=== PATIENT | male | born 1955 | race African-American/Black ===

== ENCOUNTER 2016-12-31 11:24 | Outpatient (CLI) | payer OTHER ==
--- NOTE | 2016-12-31 13:27 | CT ---
CT PULMONARY LUNG SCAN: Date: 12/31/16 HISTORY: Low dose screening. Family history of cancer. Patient is a current smoker. Patient has had coronary artery bypass surgery. FINDINGS: An 8 mm right paratracheal lymph node is seen. No lung nodules or masses are identified. There is mi ld ground-glass density in the inferior anterior aspect of the right upper lobe. No pleural or peric ardial effusions are identified. A left-sided 2.4 cm renal cyst is seen. IMPRESSION: Lung-RADS category 1 - negative. Continue annual screening with LDCT in 12 months. POS: [facility]
== END 2016-12-31 11:25 | disposition home or self-care (01) ==
LOC: CT 11:24
PROVIDERS: ATTEND Family Medicine
DX: Z12.2 Encounter for screening for malignant neoplasm of respiratory organs (principal); F17.210 Nicotine dependence, cigarettes, uncomplicated; J41.0 Simple chronic bronchitis
CPT/HCPCS: G0297

== ENCOUNTER 2017-06-06 20:09 | Emergency (ER) | payer OTHER ==
[2017-06-06] MEDS ORDERED: Adacel (T-DAP) 0.5 ML VIAL ONE (20:28)
--- NOTE | 2017-06-06 20:48 | RAD ---
RIGHT HAND THREE VIEWS 06/06/17 HISTORY: Dog bite. FINDINGS: Osteoarthritic changes are present throughout the wrist and hand. Old healed fracture of the fifth me tacarpal is apparent. Metallic BB lies just posterolateral to the base of the proximal phalanx little finger. No acute fracture, dislocation, or soft tissue gas are apparent. IMPRESSION: Chronic type findings are as detailed above. Metallic BB adjacent to the little finger base is presum ed chronic. No acute osseous abnormalities are reliably demonstrated. POS: [facility]
[2017-06-06] MEDS ORDERED: Bacitracin Zinc 1 Packet ONE (21:48)
== END 2017-06-06 22:02 | disposition home or self-care (01) ==
LOC: ERS 20:09
DX: S61.451A Open bite of right hand, initial encounter (principal); K21.9 Gastro-esophageal reflux disease without esophagitis; I25.10 Atherosclerotic heart disease of native coronary artery without angina pectoris; I10 Essential (primary) hypertension; F17.220 Nicotine dependence, chewing tobacco, uncomplicated; Z79.82 Long term (current) use of aspirin; W54.0XXA Bitten by dog, initial encounter
CPT/HCPCS: 90471; 90715

== ENCOUNTER 2017-06-15 01:40 | Inpatient (IN) | payer OTHER ==
[2017-06-15 03:02] LABS: #Basophils 0.1 thou/uL (0.0-0.2); #Eosinphils 0.1 thou/uL (0.0-0.7); #Lymphocytes 3.1 thou/uL (1.20-3.40); #Monocytes 0.8 thou/uL (0.11-0.59); #Neutrophils 4.5 thou/uL (1.40-6.50); %Basophils 1.5 % (0.0-1.0); %Eosinophils 0.6 % (0.0-10.0); %Lymphocytes 35.9 % (21.0-51.0); %Monocytes 9.6 % (0.0-10.0); %Neutrophils 52.4 % (42.0-75.0); Hemoglobin 14.7 g/dL (14.0-18.0); Mean Corpuscular HGB CONC 33.6 g/dL (32.0-36.0); Mean Corpuscular Hemoglobin 33.8 pg (27.0-31.0); Mean Platelet Volume 6.8 fL (7.4-10.4); Platelet Count 222 thou/uL (130-400); RBC Distribution Width 11.8 % (11.5-14.5); Red Blood Cell (RBC) Count 4.35 mill/uL (4.70-6.10); White Blood Cell (WBC) Count 8.7 thou/uL (4.8-10.8)
[2017-06-15 03:08] LABS: Prothrombin Time 13.7 SEC (12.0-14.7)
[2017-06-15 03:09] LABS: PTT 33.9 SEC (22.9-36.1)
[2017-06-15] MEDS ORDERED: Lidocaine 1% w/Epinephrine 1:100K 20 ML VIAL ONE (03:21)
[2017-06-15 03:28] LABS: ALT (SGPT) 31 U/L (8-55); AST (SGOT) 35 U/L (5-34); Albumin 4.4 g/dL (3.5-5.0); Alcohol 319 mg/dL (Less than 10); Alkaline Phosphatase 69 U/L (40-150); Anion Gap 12 mmol/L (10-20); BUN (Urea Nitrogen) 5 mg/dL (8.4-25.7); Bilirubin, Total 0.3 mg/dL (0.2-1.2); Calc. Creatinine Clearance 0 mL/min (70-130); Calcium 9.5 mg/dL (7.8-10.44); Carbon Dioxide 28 mmol/L (22-29); Chloride 108 mmol/L (98-107); Estimated GFR-MDRD Greater than 90; Globulin 3.3 g/dL (2.4-3.5); Glucose 97 mg/dL (70-105); Potassium 3.8 mmol/L (3.5-5.1); Protein, Total 7.7 g/dL (6.0-8.3); Sodium 144 mmol/L (136-145)
[2017-06-15 03:32] LABS: CKMB 5.6 ng/mL (0-6.6); Troponin I Less than 0.010 ng/mL (< 0.028)
[2017-06-15] MEDS ORDERED: Adacel (T-DAP) 0.5 ML VIAL ONE (03:32)
[2017-06-15 04:24] LABS: Magnesium 2.4 mg/dL (1.6-2.6); Phosphorus 3.5 mg/dL (2.3-4.7)
[2017-06-15] MEDS ORDERED: Multivitamins, Adult 10 ML, Thiamine HCl 100 MG, Folic Acid 1 MG in Dextrose 5 %-0.45 %... IV SCH (04:30)
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
[2017-06-15 06:15] LABS: Troponin I Less than 0.010 ng/mL (< 0.028)
[2017-06-15] MEDS ORDERED: Ondansetron ODT 4 MG TAB SL PRN (06:31)
[2017-06-15] MEDS ORDERED: Acetaminophen 325 MG TAB PO PRN (06:31)
[2017-06-15] MEDS ORDERED: Ondansetron HCl/PF 4 MG/2 ML Vial IVP PRN (06:31)
[2017-06-15 07:31] VITALS: BMI 20.5
--- NOTE | 2017-06-15 09:18 | RAD ---
PORTABLE CHEST: Date: 06/15/17 PROVIDED CLINICAL HISTORY: Fall. FINDINGS: Comparison made with study dated 07/27/16. Cardiac and mediastinal silhouette is within normal limits. Lungs appear clear. There is no pleural f luid or pneumothorax apparent. Median sternotomy changes are again seen. IMPRESSION: No evidence for an acute cardiopulmonary process. POS: [facility]
[2017-06-15] MEDS ORDERED: Guaifenesin DM 100-10/5 ML UDCUP PO PRN (10:01)
[2017-06-15] MEDS ORDERED: Senokot 8.6 MG TAB PO PRN (10:01)
--- NOTE | 2017-06-15 10:53 | PRG ---
DATE OF SERVICE: 06/15/2017 I personally interviewed and examined the patient, reviewed records and imaging and agree with docume ntation of Arash Canas PA-C, dated 06/15/2017. Briefly, Wallace Mera is a 62-year-old gentleman, who had a fall at a family home yesterday even ing. He was drinking alcohol at that time and he does not remember the event. In the emergency depa rtment, he complained of some burning in his hands and feet and reported feeling off balance. CT jayde ging showed degenerative changes in the cervical spine causing spinal stenosis in a chronic fashion. When I am seeing Mr. Mera this morning, he is more alert. He tells me his hands and arms have been burning for one year. He tells me his hands and arms not feel any different than they did two w eeks ago. He tells me his balance is off and it has been off for at least a year and that his balanc e is no different than it was one year ago. Although, there are some upper motor neuron findings in reflexes and strength, this is a chronic appe aring problem. An MRI scan is pending for today. Mr. Mera is in difficult situation. If this episode of alcohol intoxication is reflective of h is normal home life then he could have a significant alcohol induced peripheral neuropathy and B12 le adelia to be evaluated. This will make him off balance and should decrease his reflex responses. In ad dition to this, he has chronic cervical spondylosis causing chronic cervical spinal stenosis. Spinal cord pressure will make him feel off balance as well. It could be unwise to put him through a large cervical spine operation if he does not have the motivation to complete physical therapy and perhaps inpatient rehabilitation after that surgery. In addition, if he has fallen because of a peripheral neuropathy, dislodging plate screws and interbody devices would be problematic and perhaps more so th an if surgery was not done. I explained all this to Mr. Mera. He told me he could follow up in clinic. I think that is a good bar to set. If he is able to return home stay off alcohol and enough to return to clinic, I thi nk he might be a good candidate for decompression. If on the other hand his compliance is poor and t he benefits of surgery may not be realize. Once MR imaging is available, I can make arrangements for followup in the office and revisit with him in the hospital if it is needed.
--- NOTE | 2017-06-15 11:18 | CT ---
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 More prominent centrally bulging/protruding disc at C5-6, possibly representing focal central discont inue herniation. There appears to be some impingement on the anterior aspect of the spinal cord/spina l stenosis at this level. Initial Report created on 06/15/2017 3:00 AM Central Time ([place] & [place]) EXAM: CT Cervical Spine Without Intravenous Contrast CLINICAL HISTORY: 62 years old, male; Injury or trauma; Fall; Initial encounter; Abrasion; Patient HX: Er 2; M62 presen ts to ed via ems S/P fall with chin laceration. Patient reports blacking out for, "quite a while" thi s evening. He reports arm, finger, head, neck, and chin pain. Patient reports alcohol consumption. H e denies nausea and vomiting TECHNIQUE: Axial computed tomography images of the cervical spine without intravenous contrast. Coronal and sagittal reformatted images were created and reviewed. COMPARISON: No relevant prior studies available. FINDINGS: On axial CT images, no definite acute fracture is visible. Sagittal and coronal reconstructions show no fracture or subluxation. Mild to moderate degenerative disc changes and facet joint arthritis at multiple levels. Mild bulging discs suspected at several levels. More prominent centrally bulging/protruding disc at C5-6, possibly representing focal central discont inue herniation. There could be some on the anterior aspect of the spinal cord/spinal stenosis at thi s level. MRI could be more sensitive if clinically indicated. IMPRESSION: No definite acute fracture or subluxation by CT. Other findings discussed above. Thank you for allowing us to participate in the care of your patient. Dictated and Authenticated by: Vijay Live MD 06/15/2017 3:00 AM Central Time ([place] & [place]) FINAL REPORT EMERGENCY AFTER HOURS CT CERVICAL SPINE: Date: 06/15/17 IMPRESSION: I agree with the preliminary interpretation given by vRpelon. No evidence for fracture or traumatic subl uxation. Multilevel degenerative changes are noted with areas of potentially significant central reddy l stenosis. Consider nonemergent MRI. POS: [facility]
--- NOTE | 2017-06-15 11:19 | CT ---
PRELIMINARY REPORT/[facility]/EMERGENCY AFTER HOURS PROCEDURE: EXAM: CT Head Without Intravenous Contrast CLINICAL HISTORY: 62 years old, male; Injury or trauma; Fall; Initial encounter; Laceration; Without residual foreign b buzz; Jaw or chin; Patient HX: Er 2; M62 presents to ed via ems S/P fall with chin laceration. Patient reports blacking out for, "quite a while" this evening. He reports arm, finger, head, neck, and chin pain. Patient reports alcohol consumption. He denies nausea and vomiting TECHNIQUE: Axial computed tomography images of the head/brain without intravenous contrast. COMPARISON: No relevant prior studies available. FINDINGS: No definite acute skull fracture. Included paranasal sinuses are essentially clear. No acute intracranial hemorrhage or mass effect. Ventricle size is normal for age. There is decreased attenuation in the periventricular white matter, likely from microvascular disease . Small old lacunar infarcts in the right supraventricular white matter. Additional old infarct in the high left frontal/parietal region. No definite acute infarct by CT. IMPRESSION: No acute intracranial bleed or mass effect. Changes of microvascular disease, and old infarcts, details above. Thank you for allowing us to participate in the care of your patient. Dictated and Authenticated by: Vijay Live MD 06/15/2017 2:56 AM Central Time ([place] & [place]) FINAL REPORT EMERGENCY AFTER HOURS CT BRAIN: Date: 06/15/17 IMPRESSION: I agree with the preliminary interpretation given by Roselia. No evidence for intracranial hemorrhage or mass effect. Chronic ischemic changes are noted, which appear similar to the 07/01/08 study. POS: [facility]
[2017-06-15] MEDS: Nicotine 14 MG PATCH TD SCH (11:41)
--- NOTE | 2017-06-15 12:54 | MRI ---
MRI CERVICAL SPINE: Date: 06/15/17 PROVIDED CLINICAL HISTORY: Cervical myelopathy. FINDINGS: Comparison made with CT dated 06/15/17. Cervical alignment appears normal. Vertebral body heights appear preserved. No focal concerning regio nal marrow signal abnormality. The visualized posterior fossa and cervicomedullary junction demonstra te normal signal and morphology. Evaluation is limited due to patient motion on the axial sequences. At C2-3, there is no significant central canal or neural foraminal narrowing apparent. At C3-4, there is a broad based disc bulge and bilateral uncinate process hypertrophy. There is effac ement of the ventral subarachnoid space without cord contact or deformity. There is a small focus of abnormal signal intensity present in the right central cord at the level of C4. There is bilateral fo raminal narrowing. At c4-5, there is a broad based disc osteophyte complex and bilateral uncinate process hypertrophy. T here is effacement of the ventral subarachnoid space with flattening of the ventral cord. There is bi lateral foraminal narrowing, severe left of midline. At C5-6, there is a broad based disc bulge with a superimposed central disc protrusion. This produces flattening of the spinal cord. There is signal alteration on fluid sensitive sequences within the sp inal cord at this level, seen to best advantage on the sagittal sequences. Uncinate process hypertrop hy is also present with associated severe bilateral foraminal narrowing. At C6-7, there is a broad based disc bulge without significant central canal or foraminal narrowing a pparent. At C7-T1, there is a broad based disc bulge without significant central canal or foraminal narrowing apparent. IMPRESSION: Cervical degenerative changes with areas of canal and foraminal narrowing as described above. Areas o f cord signal abnormality at C4 and C5-6 may reflect myelomalacia. Given history of recent trauma, co rd edema/injury should also be considered. POS: [facility]
[2017-06-15] MEDS ORDERED: traMADol HCl 50 MG TAB PO PRN (13:58)
[2017-06-15] MEDS: Acetaminophen 325 MG TAB PO PRN (14:17)
[2017-06-15] MEDS ORDERED: Oxazepam 10 MG CAP PO SCH (15:00)
[2017-06-15 15:19] LABS: Medtox Reader # READER 4
[2017-06-15 15:20] LABS: Amphetamine Not Detected (NotDetected); Barbiturates Screen Not Detected (NotDetected); Benzodiazepine Screen Not Detected (NotDetected); Cocaine Metabolite Screen Not Detected (NotDetected); Medtox Control Line Valid? VALID (VALID); Methadone Not Detected (NotDetected); Methamphetamine Not Detected (NotDetected); Opiate Screen Not Detected (NotDetected); Oxycodone Screen Not Detected (NotDetected); Phencyclidine (PCP) Not Detected (NotDetected); THC/Cannabinoid Screen Detected (NotDetected); Tricyclic Screen Not Detected (NotDetected)
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
[2017-06-15] MEDS: Mometasone/Formoterol 120 PUFF INHALER INH SCH (19:28)
[2017-06-15] MEDS: Famotidine 20 MG TAB PO SCH (20:42)
[2017-06-15] MEDS: Docusate 100 MG CAP PO SCH (20:42)
--- NOTE | 2017-06-15 20:51 | HP ---
DATE OF ADMISSION: 06/15/2017 ADMITTING PHYSICIAN: Jeremy kaur/Dr. Main. REASON FOR ADMISSION: Fall with subsequent numbness and tingling to hands. HOSPITAL DIAGNOSES: 1. Status post ground level fall. 2. Laceration to chin. 3. Cervical spinal stenosis. PAST MEDICAL HISTORY: 1. Coronary artery disease. 2. Hypertension. 3. Chronic alcoholism. 4. Chronic obstructive pulmonary disease. PAST SURGICAL HISTORY: CABG 5-vessel in 2016. PAST SOCIAL HISTORY: Alcohol approximately 24 beers per day. Smoking 2 packs per day. Drugs: Current marijuana use, past cocaine use. CURRENT MEDICATIONS: The patient denies taking medications. ALLERGIES: No known drug allergies. LABORATORY DATA: Hematology: WBC 8.7, RBC 4.35, hemoglobin 14.0, hematocrit 43.7, platelets 222. Coags: PT 13.7, INR 1.0. Chemistry: Sodium 144, potassium 3.8, chloride 108, carbon dioxide 28, BUN 5, creatinine 0.89. Troponin less than 0.10. DIAGNOSTIC IMAGING: Cervical spine CT scan, cervical spine bulging protruding disk. HISTORY OF PRESENT ILLNESS: Mr. Mera is a 62-year-old male who was in his normal state of health last night. He apparently was out, drinking with family and friends. He chronically uses alcohol. He reports that if he is not intoxicated then he feels off balance and has had multiple falls lately. He apparently had a ground level fall, sustaining a laceration to his chin. Subsequently, he had numbness and tingling to his upper extremities. He was [facility] to [facility] via EMS. He is unable to recall the details of the event. Workup in the ER was concerning for central cord syndrome. He underwent CT scan and MRI. He was admitted to the hospital by Jeremy Kaur. Dr. Fernandez, Neurosurgery was consulted. The following morning, he was evaluated by Trauma Services. Laceration to the chin had been closed with sutures by the ER physician. REVIEW OF SYSTEMS: Constitutional: Denies weight loss or gain. Denies fever or chills. Denies general malaise. HEENT: Reports blindness in right eye from injury. No other complaints. Cardiovascular: History of 5-vessel bypass. Denies chest pain. Respiratory: Denies cough, wheezing or shortness of breath. GI: Denies abdominal pain, nausea, vomiting, diarrhea. : No complaints. Musculoskeletal: Reports pain to the area of laceration on chin. Reports posterior neck pain. Skin: Negative. No complaints. Neurologic: Denies dizziness, denies weakness. He reports having blacking out spells when consuming alcohol. He reports multiple falls if he is not consuming alcohol. PHYSICAL EXAMINATION: GENERAL: Elderly appearing male, appearing older than stated age, nontoxic, appears pain free. HEENT: A small superficial chin laceration closed with sutures. Pain to posterior neck. Cervical collar in place. RESPIRATORY: Bilateral breath sounds clear. No respiratory distress. CARDIOVASCULAR: Regular rate and rhythm. Heart sounds normal. ABDOMEN: Soft, nontender, nondistended. BACK: No tenderness. No abnormalities noted. EXTREMITIES: Neurovascularly intact. Moves all extremities, complains of burning sensation when touching feet. NEUROLOGIC: GCS is 15. Alert and oriented x3. ASSESSMENT: 1. Status post ground level fall. 2. Small superficial laceration to chin. 3. Chronic alcoholism. 4. Cervical spine stenosis. 5. Noncompliance with medication and lifestyle recommendation. 6. History of bipolar disorder. PLAN: 1. Neurosurgical consult, Dr. Fernandez. I appreciate recommendations. 2. Monitor for alcohol withdrawal, prophylaxis initiated. 3. Local wound care to chin. 4. Continue cervical collar. 5. PT, OT evaluation. 6. Appreciate Hospital Medicine. The patient was reviewed with Dr. Main, attending trauma surgeon, who agrees with plan of care. TYRON
[2017-06-15] MEDS ORDERED: Non-Formulary Item 1 EACH (Budesonide-Formoterol [Symbicort 80-4.5] 1 PUFF) INH SCH (21:00)
--- NOTE | 2017-06-16 00:04 | HP ---
DATE OF CONSULT: 06/15/2017 Wallace Mera is a 62-year-old black male who took a fall and has experiences paresthesias in his fingers and toes. He denies any weakness. A CAT scan has been obtained. Cervical spine revealing absence of any acute fracture or subluxation. He does have significant cervical stenosis. He has pearson d a cervical collar in place. Neurosurgery has seen him. Cervical spine MRI scan obtained this morn ing reveals C3-C4 broad based disk bulge, bilateral uncinate process hypertrophy. C4-C5 broad based disk osteophyte complex and bilateral uncinate process hypertrophy, flattening of the ventral cord se adeline left of midline. C5-C6 broad based disk bulge and central disk protrusion. C6-C7, same, but wi thout central canal or foraminal narrowing. C7-T1 broad disk bulge without cord narrowing. Impressi on was severe degenerative changes with areas of canal or foraminal narrowing, central cord stenosis. There was some edema questioning cord injury. The patient has been seen by Dr. 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 Fernandez's recommenda tions were pending MRI scan. Today, Mr. Mera is ambulatory and although has paresthesias, does not experience weakness. At this point, Trauma Services will follow along, but there are no other n on-neurosurgical issues at hand.
[2017-06-16 05:55] LABS: ALT (SGPT) 24 U/L (8-55); AST (SGOT) 24 U/L (5-34); Albumin 3.7 g/dL (3.5-5.0); Alkaline Phosphatase 65 U/L (40-150); Anion Gap 10 mmol/L (10-20); BUN (Urea Nitrogen) 8 mg/dL (8.4-25.7); Bilirubin, Total 0.6 mg/dL (0.2-1.2); Calc. Creatinine Clearance 92 mL/min (70-130); Calcium 9.1 mg/dL (7.8-10.44); Carbon Dioxide 26 mmol/L (22-29); Chloride 105 mmol/L (98-107); Estimated GFR-MDRD Greater than 90; Globulin 2.9 g/dL (2.4-3.5); Glucose 85 mg/dL (70-105); Potassium 3.4 mmol/L (3.5-5.1); Protein, Total 6.6 g/dL (6.0-8.3); Sodium 138 mmol/L (136-145)
[2017-06-16 06:15] LABS: Lymphocytes 46 % (21-51); MDiff Complete? YES; Macrocytosis SLIGHT = 6-15 cells (100X) (0-5/hpf); Mean Corpuscular HGB CONC 33.1 g/dL (32.0-36.0); Mean Corpuscular Hemoglobin 33.1 pg (27.0-31.0); Mean Platelet Volume 6.7 fL (7.4-10.4); Monocytes 15 % (0-10); Neutrophil 35 % (42-75); Nucleated RBC 1 % (0); PLT Morphology Comment Appears Adequate; Platelet Count 222 thou/uL (130-400); RBC Distribution Width 11.9 % (11.5-14.5); Reactive Lymphocytes 4 % (0-10); Red Blood Cell (RBC) Count 4.22 mill/uL (4.70-6.10)
[2017-06-16] MEDS: Mometasone/Formoterol 120 PUFF INHALER INH SCH ×2 (07:30→19:48)
--- NOTE | 2017-06-16 07:31 | PRG ---
DATE OF SERVICE: 06/16/2017 Mr. Mera is a 62-year-old male I saw in his room this morning. He had an MRI yesterday that sh owed a C5-C6 disk protrusion, is likely causing cervical myelopathy. There is also an area of narrow ing at C4-C5. There is questionable myelomalacia as well on the T2 sagittal images. Overnight, ther e have been no acute events. Chemistry exam this morning shows potassium of 3.1, BUN of 8. Tox scre en from yesterday shows cannabinoids. From a neurosurgical standpoint, we recommend ceasing to smoke and drink excessive amounts of alcohol. He can follow up in our office and we can discuss treatment for the cervical spinal stenosis. If any further questions at this time, please feel free to contac t Neurosurgery.
[2017-06-16] MEDS ORDERED: Multivitamins, Adult 10 ML, Folic Acid 1 MG, Thiamine HCl 100 MG in Dextrose 5 %-0.45 %... IV SCH (09:00)
--- NOTE | 2017-06-16 10:34 | PRG ---
DATE OF SERVICE: 06/16/2017 NEUROSURGERY PROGRESS NOTE SUBJECTIVE: I saw Mr. Mera in his hospital room this morning. He had MRI scan of cervical spi ne yesterday. Mr. Mera has more insight into his medical issues this morning than he did yeste rd. He wonders if his neck is causing him to follow. Overnight, his vitals have been stable. I do not see any fever recorded. He is satting 93% on room air. His collar is in place. On neurological examination, Mr. Mera still has fairly good strength in the interossei on both hands, finger extensors might have mild weakness, but it is not profound. There is some mild clonus at the ankles. I reviewed MR imaging of the cervical spine and there is disk disease causing spinal stenosis, some c ord compression and some T2 signal change in the cord. The disks that are out of place are C3-4, C4- 5, and C5-6. These are disks and osteophytes that have narrowed the canal and caused some pressure i n the spinal cord. When he fell and hit his chin, he likely caused some transient injury to the cord . He has a number of other issues that could result in imbalance, including his diabetic and/or alco holic peripheral neuropathy. I am planning surgical intervention for Mr. Mera, but I would like him to be medically ready fo r it. During this hospitalization if we can assess his cardiopulmonary risk factors for general anes thesia, it would be helpful. I would like to treat him with Medrol Dosepak for the next 10 days in a collar to let any swelling in and around the cord taper off before putting him through with surgical intervention. I would like to see him in the office towards the end of 10 day taper and discuss a 3 -level ACDF. Between now and then, I asked him to refrain from alcohol use. He uses walker and to t lizzeth an antacid while he is on steroids. He understands those recommendations. He promises to keep h is followup appointment.
[2017-06-16] MEDS: Famotidine 20 MG TAB PO SCH ×2 (10:38→21:17)
[2017-06-16] MEDS: Atorvastatin Calcium 10 MG TAB PO SCH (10:38)
[2017-06-16] MEDS: Docusate 100 MG CAP PO SCH ×2 (10:38→21:16)
[2017-06-16] MEDS: Nicotine 14 MG PATCH TD SCH (10:39)
--- NOTE | 2017-06-16 12:25 | PDOC.PN ---
- Subjective Encounter Start Date: 06/16/17 Encounter Start Time: 09:40 Subjective: feels better, no trouble breathing -: is moving all extremities - Objective Resuscitation Status: Resuscitation Status FULL:Full Resuscitation MAR Reviewed: Yes Vital Signs & Weight: Vital Signs (12 hours) Temp Pulse Resp BP BP Pulse Ox 06/16/17 07:20 98.3 F 78 18 127/79 93 L 06/16/17 07:15 98.3 F 78 18 93 L 06/16/17 06:53 73 14 96 06/16/17 04:35 93 L 06/16/17 04:00 98.3 F 60 16 119/72 119/72 93 L 06/16/17 00:15 78 14 97 Weight Admit Weight 156 lb Weight 157 lb 3.2 oz I&O: 06/15/17 06/16/17 06/17/17 05:59 06:59 06:59 Intake Total Output Total Balance Result Diagrams: 06/16/17 04:48 06/16/17 04:48 Phys Exam - Physical Examination HEENT: PERRLA, moist MMs Neck: no JVD, supple Respiratory: no wheezing, no rales Cardiovascular: RRR, no significant murmur Gastrointestinal: soft, non-tender, positive bowel sounds Musculoskeletal: no edema, pulses present Neurological: non-focal, moves all 4 limbs Psychiatric: A&O x 3 Dx/Plan (1) COPD (chronic obstructive pulmonary disease) Status: Chronic Qualifiers: COPD type: chronic bronchitis Chronic bronchitis type: unspecified Qualified Code(s): J42 - Unspecified chronic bronchitis (2) Cervical disc disease with myelopathy Code(s): M50.00 - CERVICAL DISC DISORDER WITH MYELOPATHY, UNSP CERVICAL REGION Status: Acute (3) Alcohol intoxication Status: Resolved (4) CAD (coronary artery disease) Code(s): I25.10 - ATHSCL HEART DISEASE OF [place] CORONARY ARTERY W/O ANG PCTRS Status: Chronic Qualifiers: Coronary Disease-Associated Artery/Lesion type: bypass graft [place] vs. transplanted heart: [place] heart Associated angina: without angina Qualified Code(s): I25.810 - Atherosclerosis of coronary artery bypass graft(s) without angina pectoris Comment: cabg x5 in 2016 (5) Dyslipidemia Code(s): E78.5 - HYPERLIPIDEMIA, UNSPECIFIED Status: Chronic (6) HTN (hypertension) Code(s): I10 - ESSENTIAL (PRIMARY) HYPERTENSION Status: Chronic Qualifiers: Hypertension type: essential hypertension Qualified Code(s): I10 - Essential (primary) hypertension - Plan counselled reg medication and dietary compliance -: to obstain from drinking alcohol and f/u with as adv -: all his meds were faxed to pharmacy, pt needs to f/u with psychiatrist of h -: -is choice in 2 weeks. -: may dc home anytime * .
--- NOTE | 2017-06-16 16:46 | CON ---
DATE OF CONSULTATION: 06/16/2017 REASON FOR CONSULTATION: Preop clearance. REFERRING PROVIDER: Panchito Mcintosh M.D. HISTORY OF PRESENT ILLNESS: Mr. Mera is a 62-year-old gentleman who recently had a syncopal ep isode. Etiology is unknown. He does have a history of alcohol abuse, although states he had only pearson d 2 beers at the time of his fall. No chest pain or pressure noted. Mr. Mera did undergo bypass surgery 2 years ago. He underwent 5-vessel bypass by Dr. Rafa negron. His EKG today does show ST-T wave changes that appeared slightly worsened EKG from 2017. PAST MEDICAL HISTORY: As above including hypertension, right eye blindness, COPD, bipolar disorder. CURRENT MEDICATIONS: Antibiotic for recent dog bite. ALLERGIES: None. SOCIAL HISTORY: Positive for tobacco use. Positive for alcohol use. REVIEW OF SYSTEMS: Ten point systems were reviewed and as above, otherwise negative. PHYSICAL EXAMINATION: VITAL SIGNS: Blood pressure 127/79, pulse 78, temperature 98.3. GENERAL: Patient is a pleasant male who is in no acute distress. The patient appears his stated age . NEUROLOGIC: The patient is alert and oriented times 3 with no focal neurologic deficits. HEENT: Sclerae without icterus. Mouth has moist mucous membranes with normal pallor. NECK: No JVD. Carotid upstroke brisk. No bruits bilaterally. LUNGS: Clear to auscultation with unlabored respirations. BACK: No scoliosis or kyphosis. CARDIAC: Regular rate and rhythm with normal S1 and S2. No S3 or S4 noted. No significant rubs, murmurs, thrills, or gallops noted throughout the precordium. PMI is not displaced. There is no parasternal heave. ABDOMEN: Soft, nontender, nondistended. No peritoneal signs present. No hepatosplenomegaly. No abnormal striae. EXTREMITIES: 2+ femoral and 2+ dorsalis pedis pulses. No cyanosis, clubbing, or edema. SKIN: No gross abnormalities. PERTINENT LABORATORY DATA: Hemoglobin 14, white blood cell count 7, MCV 100. Creatinine 0.86. IMPRESSION: 1. Preoperative clearance. 2. Coronary artery disease. 3. Status post bypass surgery. 4. Abnormal electrocardiogram. 5. Syncope. RECOMMENDATIONS: The etiology to Mr. Mera's syncopal episode is unknown. This can certainly b e cardiac in origin. This may also be due to alcohol. His EKG does show ST-T wave changes noted in the interseptal region that are slightly worse than last year. We recommend a noninvasive stress abe dy to assess for any areas of ischemia. Further recommendations per Dr. Brad Robbins in a.m. He may also benefit from an outpatient 3-week event recorder.
--- NOTE | 2017-06-16 18:02 | DIS ---
DATE OF ADMISSION: 06/15/2017 DATE OF DISCHARGE: 06/16/2017 DISCHARGE DISPOSITION: To home. PRIMARY DISCHARGE DIAGNOSES: Alcohol intoxication with fall and laceration of chin, cervical disk disease with myelopathy around C5-C6 area. SECONDARY DISCHARGE DIAGNOSES: Coronary artery disease with prior coronary artery bypass grafting done in 2016, not on any medication and is noncompliant; chronic obstructive pulmonary disease with ongoing tobacco abuse; hypertension and dyslipidemia. PROCEDURES DONE DURING HOSPITALIZATION: The patient has had multiple imaging studies done due to his history of fall. MRI C-spine done showed areas of cord signal abnormality at C4 and C5-C6 may reflect myelomalacia. Had alcohol levels of 319 mg/dL. Urine drug screen also was positive for cannabinoids. Troponin x3 was negative. BNP was 95. INPATIENT CONSULTS: Dr. Fernandez for Neurosurgery and Dr. Main for General Surgery. DISCHARGE MEDICATIONS: Albuterol inhaler q.6 hourly p.r.n., Lipitor 10 mg p.o. daily, Symbicort inhaler 2 puffs twice daily, Prozac 20 mg p.o. daily, folic acid 1 mg p.o. daily, Motrin p.r.n. for pain, Toprol-XL 25 mg p.o. daily, omeprazole 20 mg p.o. daily and thiamine 100 mg p.o. daily. ALLERGIES: No known drug allergies. DISCHARGE PLAN: The patient to follow up with Dr. Fernandez, likely in 10-12 days for definitive surgery for his cervical disk disease and myelopathy. BRIEF COURSE DURING HOSPITALIZATION: The patient initially got admitted on the 10th after he sustained a fall and was brought to emergency room. He had chin lacerations and multiple imaging studies were done as part of trauma protocol. His CT spine revealed possible disk disease with cord compression at C5-C6. He has had suturing done for his chin laceration. The patient was evaluated by Dr. Fernandez for Neurosurgery. He was placed in a cervical collar. The patient has had MRI done and this was reviewed by Dr. Fernandez as well. In view of his binge drinking habit, patient was placed on banana bag and has responded well. Prior to discharge, he is ambulating in the room and eating well. He has a known history of CABG with 5-vessel disease done in 2016 and has been noncompliant with medications. He was counseled and all his medications have been faxed to pharmacy. Neurosurgery will be faxing a short course of Decadron per Dr. Fernandez's advise. He is otherwise hemodynamically stable. Dr. Fernandez would like to have a cardiology clearance in view of his prior CABG for prospect of surgery in 10-12 days and a consultation with Dr. Davila has been requested for the same. He has had stress test done which showed no reversible ischemia and has been cleared by for proposed neurosurgery on his C.spine, pt stayed overnight for the stress test. He is hemodynamically stable and will be discharged home. Please see a [id number] documentation for the day of discharge on [facility]. [facility]
--- NOTE | 2017-06-16 18:52 | PRG ---
DATE OF SERVICE: 06/16/2017 SUBJECTIVE: Mr. Mera is a 62-year-old male who was admitted one day ago after an event in which he fell and was found down with a laceration to his chin. Workup in the ER identified cervical spine stenosis. He complained of numbness and tingling to his hands and feet. He was seen by Dr. Fernandez, Neurosurgery. Dr. Fernandez did not recommend any surgical intervention at that time. He was scheduled to go home today and was being discharged by the hospital medicine team. He was then re-evaluated by Dr. Fernandez and recommended surgical intervention. Cardiology consult was obtained for preoperative clearance. Hospital medicine and Neurosurgery continue to follow. OBJECTIVE: VITAL SIGNS: Temperature 98.9, pulse 80, respirations 16, O2 sat 98% on room air, blood pressure 128/84. GENERAL: Elderly male sitting up in bed in no acute distress. HEENT: Laceration to chin and closed with sutures. CARDIOVASCULAR: Regular rate and rhythm. Heart sounds normal. PULMONARY: Bilateral breath sounds clear. No respiratory distress. ABDOMEN: Soft, nontender, nondistended. EXTREMITIES: Moves all extremities well. Still complains of tingling and numbness to his feet. NEUROLOGIC: GCS 15. Awake, alert, oriented x3. ASSESSMENT: 1. Status post ground level fall. 2. Cervical spine stenosis. 3. Chronic ethanol use. PLAN: 1. Continue preoperative workup per hospital medicine services already ongoing. 2. Scheduled for surgical intervention by Dr. Fernandez. 3. Trauma will continue to follow along. The patient was reviewed with Dr. Main, who agrees with plan. TYRON
[2017-06-16] MEDS: methylPREDNISolone 4 mg Tablet PO SCH ×2 (21:16→23:42)
[2017-06-16] MEDS: Acetaminophen 325 MG TAB PO PRN (21:17)
[2017-06-17] MEDS: Mometasone/Formoterol 120 PUFF INHALER INH SCH (06:47)
[2017-06-17] MEDS ORDERED: Multivitamin W/ Minerals 1 TAB PO SCH (09:00)
[2017-06-17] MEDS ORDERED: Folic Acid 1 MG TAB PO SCH (09:00)
[2017-06-17] MEDS: Docusate 100 MG CAP PO SCH (11:02)
[2017-06-17] MEDS: Famotidine 20 MG TAB PO SCH (11:03)
[2017-06-17] MEDS: methylPREDNISolone 4 mg Tablet PO SCH ×2 (11:03→13:42)
[2017-06-17] MEDS: Atorvastatin Calcium 10 MG TAB PO SCH (11:03)
[2017-06-17] MEDS: Nicotine 14 MG PATCH TD SCH (11:07)
--- NOTE | 2017-06-17 11:31 | NM ---
CARDIAC SPECT: CLINICAL HISTORY: Syncope, coronary artery disease, status post CABG, and hypertension. TECHNIQUE: A myocardial perfusion scan was performed using the single isotope one day protocol with technetium-9 9m sestamibi. 9 mCi were injected intravenously for the rest exam followed by 27 mCi for the stress e xam. Pharmacologic stress with Lexiscan was monitored and interpreted by Dr. Del Valle. FINDINGS: There is a fixed defect in the distal anteroseptal wall. No reversible defects are identified. GATED SPECT LVEF: 50%. WALL MOTION EXAM: Distal anteroseptal wall hypokinesis. IMPRESSION: No evidence of reversible ischemia. POS: ABENA
--- NOTE | 2017-06-17 11:49 | PDOC.PN ---
- Subjective Encounter Start Date: 06/17/17 Encounter Start Time: 11:15 Subjective: feels better, no sob/chest pain - Objective Resuscitation Status: Resuscitation Status FULL:Full Resuscitation MAR Reviewed: Yes Vital Signs & Weight: Vital Signs (12 hours) Temp Pulse Resp BP BP Pulse Ox 06/17/17 11:00 97.1 F L 82 16 122/83 100 06/17/17 06:45 84 15 95 06/17/17 04:25 97.7 F 74 16 124/76 124/76 93 L 06/17/17 00:27 70 14 97 Weight Admit Weight 156 lb Weight 156 lb 6.4 oz I&O: 06/16/17 06/17/17 06/18/17 06:59 06:59 06:59 Intake Total 240 Output Total 525 Balance -285 Result Diagrams: 06/16/17 04:48 06/16/17 04:48 Phys Exam - Physical Examination HEENT: PERRLA, moist MMs Neck: no JVD, supple Respiratory: no wheezing, no rales Cardiovascular: RRR, no significant murmur Gastrointestinal: soft, non-tender, positive bowel sounds Musculoskeletal: no edema, pulses present Neurological: non-focal, moves all 4 limbs Psychiatric: A&O x 3 Dx/Plan (1) COPD (chronic obstructive pulmonary disease) Status: Chronic Qualifiers: COPD type: chronic bronchitis Chronic bronchitis type: unspecified Qualified Code(s): J42 - Unspecified chronic bronchitis (2) Cervical disc disease with myelopathy Code(s): M50.00 - CERVICAL DISC DISORDER WITH MYELOPATHY, UNSP CERVICAL REGION Status: Acute (3) Alcohol intoxication Status: Resolved (4) CAD (coronary artery disease) Code(s): I25.10 - ATHSCL HEART DISEASE OF [place] CORONARY ARTERY W/O ANG PCTRS Status: Chronic Qualifiers: Coronary Disease-Associated Artery/Lesion type: bypass graft [place] vs. transplanted heart: [place] heart Associated angina: without angina Qualified Code(s): I25.810 - Atherosclerosis of coronary artery bypass graft(s) without angina pectoris Comment: cabg x5 in 2016 (5) Dyslipidemia Code(s): E78.5 - HYPERLIPIDEMIA, UNSPECIFIED Status: Chronic (6) HTN (hypertension) Code(s): I10 - ESSENTIAL (PRIMARY) HYPERTENSION Status: Chronic Qualifiers: Hypertension type: essential hypertension Qualified Code(s): I10 - Essential (primary) hypertension - Plan stress test shows no reversible ischemia -: may dc home if ok with -: on steroid taper per nsx -: hemostable, meds were faxed to his pharmacy yesterday except steroids -: pt to refrain from drinking alcohol and smoking * . Review of Systems - Medications/Allergies Allergies/Adverse Reactions: Allergies Allergy/AdvReac Type Severity Reaction Status Date / Time No Known Drug Allergies Allergy Verified 07/27/16 15:14 Medications: Current Medications Acetaminophen (Tylenol) 650 mg PO Q4H PRN PRN Reason: Headache/Fever or Pain Last Admin: 06/16/17 21:17 Dose: 650 mg Albuterol/Ipratropium (Duoneb) 3 ml NEB [id number] [facility] Last Admin: 06/17/17 06:45 Dose: 3 ml Atorvastatin Calcium (Lipitor) 10 mg PO DAILY [facility] Last Admin: 06/17/17 11:03 Dose: 10 mg Docusate Sodium (Colace) 100 mg PO BID [facility] Last Admin: 06/17/17 11:02 Dose: 100 mg Famotidine (Pepcid) 20 mg PO BID [facility] Last Admin: 06/17/17 11:03 Dose: 20 mg Folic Acid (Folvite) 1 mg PO DAILY [facility] Last Admin: 06/17/17 11:02 Dose: 1 mg Guaifenesin/Dextromethorphan (Robitussin Dm) 15 ml PO Q4H PRN PRN Reason: Cough Iron/Minerals/Multivitamins (Theragran M) 1 tab PO DAILY [facility] Last Admin: 06/17/17 11:03 Dose: 1 tab Methylprednisolone (Medrol) 8 mg PO 1700,2000,2300 [facility] Stop: 06/17/17 17:01 Last Admin: 06/16/17 23:42 Dose: 8 mg Methylprednisolone (Medrol) 4 mg PO 0800,1300,1800 [facility] Stop: 06/17/17 18:01 Last Admin: 06/17/17 11:03 Dose: 4 mg Methylprednisolone (Medrol) 8 mg PO 2100 [facility] Stop: 06/17/17 21:01 Methylprednisolone (Medrol) 4 mg PO 0800,1200,1700,2100 [facility] Stop: 06/18/17 21:01 Methylprednisolone (Medrol) 4 mg PO 0800,1200,1700 [facility] Stop: 06/19/17 17:01 Methylprednisolone (Medrol) 4 mg PO 0800,1700 [facility] Stop: 06/20/17 17:01 Methylprednisolone (Medrol) 4 mg PO 0800 [facility] Stop: 06/21/17 08:01 Metoprolol Succinate (Toprol Xl) 12.5 mg PO BID [facility] Last Admin: 06/17/17 11:06 Dose: 12.5 mg Mometasone Furoate/Formoterol Fumar (Dulera 100 Mcg/5 Mcg Inhaler) 2 puff INH BID-RT [facility] Last Admin: 06/17/17 06:47 Dose: 2 puff Morphine Sulfate (Morphine) 2 mg SLOW IVP Q4H PRN PRN Reason: Chest Pain/BP Elevations Nicotine (Nicoderm Patch) 14 mg TD Q24HR [facility] Last Admin: 06/17/17 11:07 Dose: 14 mg Oxazepam (Serax) 10 mg PO Q6HR [facility] Senna (Senokot) 2 tab PO HSPRN PRN PRN Reason: Constipation Sodium Chloride (Flush - Normal Saline) 10 ml IVF Q12HR [facility] Last Admin: 06/17/17 11:07 Dose: 10 ml Sodium Chloride (Flush - Normal Saline) 10 ml IVF PRN PRN PRN Reason: Saline Flush Thiamine HCl (Thiamine) 100 mg PO DAILY [facility] Last Admin: 06/17/17 11:03 Dose: 100 mg Tramadol HCl (Ultram) 50 mg PO Q6H PRN PRN Reason: Pain
[2017-06-17] MEDS ORDERED: Oxazepam 10 MG CAP PO SCH (12:00)
[2017-06-17 12:12] VITALS: BP 120/77; TEMP 98
[2017-06-17] MEDS ORDERED: Regadenoson 0.4 MG/5 ML SYRINGE ONE (16:45)
--- NOTE | 2017-06-17 18:25 | PDOC.CTH ---
Cardiology Progress Note - Subjective He is doing well. he denies any chest pain, tightness, pressure, SOB. He had his stress test and it was normal. - Objective Vital Signs Temp Pulse Resp BP Pulse Ox 06/17/17 13:18 78 15 99 06/17/17 11:52 98 F 77 16 120/77 96 06/17/17 11:00 97.1 F L 82 16 122/83 100 06/17/17 06:45 84 15 95 Admit Weight 156 lb Weight 156 lb 6.4 oz 06/16/17 06/17/17 06/18/17 06:59 06:59 06:59 Intake Total 240 Output Total 525 Balance -285 - Physical Examination General/Neuro: alert & oriented x3, NAD Neck: no JVD present Lungs: CTA, unlabored respirations Heart: RRR Abdomen: NT/ND Extremities: other: (no edema.) - Telemetry Telemetry Rhythm: NSR - Labs Result Diagrams: 06/16/17 04:48 06/16/17 04:48 Troponin/CKMB CK-MB (CK-2) 5.6 ng/mL (0-6.6) 06/15/17 02:50 Troponin I 0.010 ng/mL (< 0.028) 06/15/17 08:41 - Assessment/Plan 1. Preoperative evaluation, 2. CAD 3. Syncope PLAN: - No ischemia on MPI, may proceed with surgery. - Normal LV function so no need for lifevest. - Will evaluate as outpatient for syncope with event recorder. - Follow up in the office in 1 month.
--- NOTE | 2017-06-17 20:12 | DIS ---
DATE OF ADMISSION: 06/15/2017 DATE OF DISCHARGE: 06/17/2017 ADMITTING PHYSICIAN: Dr. Main. DISCHARGING PHYSICIAN: Dr. Abhishek Tellez. ADMISSION DIAGNOSES: 1. Status post ground level fall. 2. Laceration to chin. 3. Cervical spinal stenosis. DISCHARGE DIAGNOSES: 1. Status post ground level fall. 2. Laceration to chin. 3. Cervical spinal stenosis. PROCEDURES PERFORMED: Suture of laceration to the chin. HOSPITAL COURSE: Mr. Mera is a 62-year-old male who was in his normal state of health when he reportedly had a syncopal episode. He fell sustaining a laceration to his chin with subsequent numbn ess and tingling in his upper extremities. He was transported to [facility] via EMS. The p atient underwent CT scan and MRI, which showed a cervical spinal stenosis. Dr[facility] and believed that the patient likely suffered a transient spinal cord injury as a result of his underlying stenosis in the fall. The patient has a history of coronary artery disease with previous CABG x5 and so Cardiology was consulted for preoperative clearance in anticipation of N eurosurgery with Dr. Fernandez in 10-12 days. Patient was approved for outpatient follow up for surg ray once cleared medically. The patient also has a history of heavy alcohol use, and he was started on withdrawal prophylaxis upon admission. The patient remained stable on the floor throughout his st ay. He had a cardiac stress test per Cardiology recommendations on 06/17/2017, which was negative. Patient was discharged home in stable condition on 06/17/2017 with instructions to follow up with [facility] rosurgery in 10-12 days. DISCHARGE MEDICATIONS: The patient was discharged on the following medications, 1. Albuterol sulfate 2 puffs q.6 hours. 2. Aspirin 81 mg p.o. daily. 3. Atorvastatin calcium 10 mg p.o. daily. 4. Symbicort 2 puffs b.i.d. 5. Fluoxetine 20 mg p.o. daily. 6. Folic acid 1 mg p.o. daily. 7. Ibuprofen 400 mg p.o. q.6 hours as needed. 8. Medrol Dosepak dose per pharmacy recommendations. 9. Metoprolol succinate 25 mg p.o. daily. 10. Omeprazole 20 mg p.o. daily. 11. Thiamine 100 mg p.o. daily. DISCHARGE INSTRUCTIONS: ACTIVITY: The patient is discharged without activity restrictions. NOURISHMENT INSTRUCTIONS: The patient is discharged with a heart healthy and low sodium diet. THERAPY INSTRUCTIONS: None. EQUIPMENT AND SUPPLIES: Patient is to remain in collar until he follows up with Neurosurgery. FOLLOWUP INSTRUCTIONS: The patient is to follow up with his primary care provider at the [facility] in 7 days. The patient also instructed to follow up with Neurosurgery in 10 days. This patient was seen and examined on rounds with Dr. Abhishek Tellez who agrees with this discharge pl an.
[2017-06-17] MEDS ORDERED: methylPREDNISolone 4 mg Tablet PO SCH (21:00)
[2017-06-18] MEDS ORDERED: methylPREDNISolone 4 mg Tablet PO SCH (08:00)
[2017-06-19] MEDS ORDERED: methylPREDNISolone 4 mg Tablet PO SCH (08:00)
[2017-06-20] MEDS ORDERED: methylPREDNISolone 4 mg Tablet PO SCH (08:00)
[2017-06-21] MEDS ORDERED: methylPREDNISolone 4 mg Tablet PO SCH (08:00)
--- NOTE | 2017-07-10 15:55 | EKG ---
Test Reason : Blood Pressure : / mmHG Vent. Rate : 077 BPM Atrial Rate : 077 BPM P-R Int : 248 ms QRS Dur : 078 ms QT Int : 438 ms P-R-T Axes : -01 063 080 degrees QTc Int : 495 ms Sinus rhythm with 1st degree A-V block Anteroseptal infarct , age undetermined Ant/Sep T wave inversion Abnormal ECG Confirmed by ANDREW KAPADIA MD ([id number]), restaurant expeditor JONATHON FRANCO ([id number]) on 07/10/2017 3:55:10 PM Referred By: Confirmed By:ANDREW KAPADIA MD
--- NOTE | 2017-08-15 13:36 | STRESS ---
Acquisition Time: 2017-06-17 09:35:00 Total Exercise Time: 00:01:00 Test Indications: Syncope Medications: Protocol: LEXISCAN Max HR: 114 BPM 71% of Pred: 160 BPM Max BP: 122/060 mmHG Max Work Load: 1.0 METS RESTING ECG: NORMAL SINUS RHYTHM AT 70 BPM; OLD ANTERIOR INFARCT SYMPTOMS: DYSPNEA NORMAL BP RESPONSE ECTOPY: NONE ECG STRESS: NO SIGNIFICANT CHANGES INTERPRETATION: NEGATIVE ECG/AWAIT NUCLEAR IMAGES FOR DEFINITIVE DIAGNOSIS. Confirmed by DR. Dallas DIAZ ([id number]), mapping editor DEMARCUS SOTO ([id number]) on 08/15/2017 1:36:00 PM Referred By: MD Alpesh COTE Confirmed By:DR. Dallas DIAZ
== END 2017-06-17 15:39 | disposition home or self-care (01) | DRG 552 ==
LOC: ERS 01:40 → 2NO 06:16
PROVIDERS: ADMIT Internal Medicine; ATTEND Internal Medicine
PROC: 0HQ1XZZ Repair Face Skin, External Approach (ICD-10-PCS; principal; 2017-06-15)
DX: M50.022 Cervical disc disorder at C5-C6 level with myelopathy (principal); E11.9 Type 2 diabetes mellitus without complications; S01.81XA Laceration without foreign body of other part of head, initial encounter; H54.61 Unqualified visual loss, right eye, normal vision left eye; E78.5 Hyperlipidemia, unspecified; F10.20 Alcohol dependence, uncomplicated; I10 Essential (primary) hypertension; I25.10 Atherosclerotic heart disease of native coronary artery without angina pectoris; W17.89XA Other fall from one level to another, initial encounter; F12.90 Cannabis use, unspecified, uncomplicated; J44.9 Chronic obstructive pulmonary disease, unspecified; Z95.1 Presence of aortocoronary bypass graft; F17.210 Nicotine dependence, cigarettes, uncomplicated; Z91.19 Patient's noncompliance with other medical treatment and regimen; F31.9 Bipolar disorder, unspecified; F41.9 Anxiety disorder, unspecified
CPT/HCPCS: 12011; 36415; 70450; 71045; 72125; 72141; 78452; 80053; 80306; 80307; 82553; 83735; 83880; 84100; 84484; 85025; 85610; 85730; 90715; 93005; 93017; 94640; 99406; A4216; A9500; G0390; J2001; J2785; J3411; J7042; J7620

== ENCOUNTER 2017-08-15 08:16 | Inpatient (IN) | payer OTHER ==
[2017-08-15] MEDS ORDERED: Pantoprazole 40 MG VIAL ONE (08:37)
[2017-08-15] MEDS ORDERED: Lidocaine Viscous Sol 2% 15 ml UD Cup ONE (08:37)
[2017-08-15] MEDS ORDERED: Mag-Al 1200 mg/1200 mg/30 ML UDCUP ONE (08:37)
[2017-08-15] MEDS ORDERED: Ondansetron ODT 4 MG TAB ONE (08:40)
[2017-08-15 08:48] LABS: #Basophils 0.1 thou/uL (0.0-0.2); #Lymphocytes 1.1 thou/uL (1.20-3.40); #Monocytes 0.7 thou/uL (0.11-0.59); %Basophils 0.8 % (0.0-1.0); %Eosinophils 0.4 % (0.0-10.0); %Lymphocytes 13.3 % (21.0-51.0); %Monocytes 8.7 % (0.0-10.0); %Neutrophils 76.9 % (42.0-75.0); Hemoglobin 15.6 g/dL (14.0-18.0); Mean Corpuscular HGB CONC 34.1 g/dL (32.0-36.0); Mean Corpuscular Hemoglobin 33.6 pg (27.0-31.0); Mean Corpuscular Volume 98.6 fl (80.0-94.0); Mean Platelet Volume 6.5 fL (7.4-10.4); Platelet Count 217 thou/uL (130-400); RBC Distribution Width 11.5 % (11.5-14.5); Red Blood Cell (RBC) Count 4.63 mill/uL (4.70-6.10); White Blood Cell (WBC) Count 7.9 thou/uL (4.8-10.8)
[2017-08-15 09:15] LABS: ALT (SGPT) 34 U/L (8-55); AST (SGOT) 59 U/L (5-34); Albumin 4.4 g/dL (3.5-5.0); Alkaline Phosphatase 86 U/L (40-150); Anion Gap 12 mmol/L (10-20); BUN (Urea Nitrogen) 11 mg/dL (8.4-25.7); Bilirubin, Total 1.4 mg/dL (0.2-1.2); CK (CPK) 792 U/L (30-200); Calc. Creatinine Clearance 0 mL/min (70-130); Calcium 9.7 mg/dL (7.8-10.44); Carbon Dioxide 23 mmol/L (22-29); Chloride 103 mmol/L (98-107); Estimated GFR-MDRD Greater than 90; Globulin 3.7 g/dL (2.4-3.5); Glucose 126 mg/dL (70-105); Lipase 21 U/L (8-78); Potassium 4.1 mmol/L (3.5-5.1); Protein, Total 8.1 g/dL (6.0-8.3); Sodium 134 mmol/L (136-145)
--- NOTE | 2017-08-15 09:16 | RAD ---
CHEST 1 VIEW: Date: 08/15/17 HISTORY: Chest pain. Pressure. COMPARISON: 06/15/17. FINDINGS: Cardiac silhouette is magnified by projection. Pulmonary vasculature is unremarkable. Mediastinum mid line with aortic calcification and postoperative changes. No lobar consolidation or evidence of pneum othorax. Lungs are hyperinflated. Minimal opacity at the right base may represent contusion from rece nt trauma. Healing fracture of the lateral aspect of a right lower rib is now apparent. Cardiac monit or leads overlie the chest. IMPRESSION: 1. COPD. 2. Atherosclerosis. POS: [facility]
[2017-08-15 09:18] LABS: CKMB 6.5 ng/mL (0-6.6); Troponin I Less than 0.010 ng/mL (< 0.028)
[2017-08-15] MEDS ORDERED: methylPREDNISolone Sod Succ/PF 125 MG/2 ML VIAL ONE (09:28)
[2017-08-15 09:32] LABS: Bilirubin Negative (Negative); Blood, Urine Negative (Negative); Clarity CLEAR (Clear); Glucose, Urine (Dipstick) Negative (Negative); Leukocyte Small (Negative); Nitrite Negative (Negative); Protein, Urine (Dipstick) Trace mg/dL (Neg-Trace); Specific Gravity, Urine 1.024 (1.002-1.036); pH, Urine 5.5 (5.0-9.0)
[2017-08-15 09:34] LABS: Bacteria/HPF None Seen HPF (None Seen); Hyaline Casts/LPF 0-3 HYALINE CAST LPF (0-3 Hyaline); RBC/HPF 0-3 HPF (0-3); Squamous Epithelial 0-3 HPF (0-3)
[2017-08-15] MEDS ORDERED: Acetaminophen 500 MG TAB ONE (10:07)
--- NOTE | 2017-08-15 10:33 | CT ---
CT ANGIOGRAM OF THE CHEST: Date: 08/15/17 HISTORY: Hypoxemia. Chest pain. Numbness and blurred vision. Shortness of breath. COMPARISON: None. TECHNIQUE: CT angiogram of the chest is performed in the axial plane. Bilateral oblique and coronal three-dimens ional reformatted images are submitted for interpretation. FINDINGS: No mediastinal mass, lymphadenopathy, or hematoma. Heart size is within normal limits. No pericardial effusion. There are coronary artery calcifications. Visualized upper solid organs are grossly unremarkable. There are multiple hypodensities in the left and right renal cortex, incompletely evaluated. These lesions have attenuation coefficient suggesting simple cysts. Visualized aorta has a normal caliber. No periaortic fat stranding. Trachea and central bronchi are patent. Mild emphysematous changes in the right upper lobe. No suspic ious consolidations or masses. No pneumothorax or pleural effusion. Dependent atelectatic changes are noted. No lytic or blastic lesion in the osseous structures. Adequate contrast opacification pulmonary arterial system to the level of the segmental arteries. No filling defect to imply thromboembolism. IMPRESSION: No evidence of pulmonary artery embolism to the level of the segmental arteries. POS: [facility]
[2017-08-15] MEDS ORDERED: ISOVUE-370 76%-LOCM 1 ML ONE (11:06)
[2017-08-15] MEDS ORDERED: Ondansetron HCl/PF 4 MG/2 ML Vial IVP PRN (12:25)
[2017-08-15] MEDS ORDERED: Acetaminophen 325 MG TAB PO PRN ×2 (12:25→14:06)
[2017-08-15] MEDS ORDERED: Ondansetron ODT 4 MG TAB SL PRN (12:25)
[2017-08-15 12:41] VITALS: BMI 21.7
[2017-08-15 12:43] LABS: Troponin I 0.017 ng/mL (< 0.028)
[2017-08-15] MEDS ORDERED: Acetaminophen 650 MG Suppository PR PRN (14:06)
[2017-08-15] MEDS ORDERED: Bisacodyl 5 MG TAB PO PRN (14:06)
[2017-08-15] MEDS ORDERED: cefTRIAXone\\ROCEPHIN 1 GM in Sodium Chloride 0.9% 100 ML IVPB SCH (14:15)
--- NOTE | 2017-08-15 14:49 | HP ---
PRIMARY CARE PROVIDER: Karel Rizo D.O. CHIEF COMPLAINT: Chest discomfort. HISTORY OF PRESENT ILLNESS: Mr. Mera is a pleasant 62-year-old gentleman who was seen at [facility] on 08/15/2017. He reports that he was woken up from sleep by cough, chest discomfort and nausea. He was hospitalized at this facility from 06/15/2017 to 06/16/2017 for alcohol intoxication with fall and laceration of chin, cervical disk disease with myelopathy around C5-C6 area. He also had a nuclear stress test on 06/17/2017, which showed no evidence of reversible ischemia. His left ventricular ejection fraction was 50%. He reports that he was doing well until 4 a.m. today. Around 4:00 a.m., he woke up from sleep because of chest discomfort. He describes it as a sensation of tightness in the epigastric and lower retrosternal region, nonradiating, accompanied by nausea, vomiting multiple times, diarrhea, 4/10 at its worst, nonradiating, no known aggravating or relieving factors. He reports having multiple loose stools. He also reports vomiting multiple times. He used [employer] to call for help and was brought to the emergency room. He denies any fevers or chills. He reports cough that is chronic, but is recently productive of greenish sputum. He denies any current chest pain. REVIEW OF SYSTEMS: All other systems reviewed and found to be negative. PAST MEDICAL HISTORY: Coronary artery disease, hypertension, dog bite, right blindness, COPD, bipolar disorder. PAST SURGICAL HISTORY: Coronary artery bypass graft done in 2016. ALLERGIES: No known drug allergies. CURRENT MEDICATIONS: It is unclear whether patient is taking his medications. He reports that he is taking a blood pressure medication, a medication for gastroesophageal reflux disease and an inhaler for asthma. SOCIAL HISTORY: The patient smokes half to 1 pack of cigarettes a day, uses marijuana occasionally and drinks two beers on daily basis. FAMILY HISTORY: Mother of lung cancer at age 62. Father of stroke in his 60s. PHYSICAL EXAMINATION: GENERAL: On examination, Mr. Mera is awake and alert, not in acute distress. VITAL SIGNS: He is afebrile. Blood pressure is 151/96, pulse is 70, he is breathing at rate of 18, and saturating 100% on room air. In the emergency room , he saturated in the 80s on room air. EYES: No scleral icterus. No conjunctival pallor. ENT: Moist mucosal membranes, no oropharyngeal erythema or exudates. NECK: Supple, nontender, normal range of movement. Trachea is midline. RESPIRATORY: Accessory muscles of breathing are mildly active. Chest wall movements are symmetric bilaterally. LUNGS: Examination reveals markedly diminished breath sounds at both bases. CARDIOVASCULAR: S1 and S2 are heard, regular. Peripheral pulses palpable. No carotid bruit, no pericardial rub. ABDOMEN: Soft, nontender, bowel sounds are heard, no hepatomegaly, no splenomegaly. NEUROLOGIC: He is blind in his right eye. Otherwise, cranial nerves II-XII are intact. Deep tendon reflexes are 2+. MUSCULOSKELETAL: Power is 5/5 in all 4 extremities. SKIN: No rashes or subcutaneous nodules. LYMPHATIC: No cervical lymphadenopathy. PSYCHIATRIC: Normal mood, normal affect, patient is oriented to person, place, and time. IMAGING DATA AND LABORATORY DATA: Mr. Mera's labs and investigations were reviewed. I reviewed his electrocardiogram, which shows normal sinus rhythm with occasional premature ventricular complexes, no ST changes to suggest an acute coronary syndrome. I also reviewed his chest x-ray, which does not show any pulmonary infiltrates. He also had CT angiogram of the chest , which did not show any pulmonary embolism. He had lesions which was suggestive of simple cyst in both kidneys. He has a normal white count, normal hemoglobin, normal platelet count, decreased sodium of 134, normal potassium, normal creatinine, elevated total bilirubin of 1.4, elevated AST of 59, normal ALT, elevated creatinine kinase of 792, normal troponin I, normal BNP and normal lipase. Urinalysis is positive for ketones and small amount of leukocyte esterase. ASSESSMENT AND PLAN: Mr. Mera is a pleasant 62-year-old gentleman who was seen at [facility] on 08/15/2017. His problem list includes: 1. Chest pain: Resolved now. We will monitor him on telemetry and trend his troponins. Patient recently had a normal stress test. If chest pain recurs, may need repeat stress test. 2. Chronic obstructive pulmonary disease exacerbation: The patient is presenting with chronic obstructive pulmonary disease exacerbation. We will treat him with oxygen, steroids, bronchodilators and antibiotics. 3. Urinary tract infection. We will start him on antibiotics in the form of ceftriaxone. 4. Hypertension: Monitor vital signs and titrate antihypertensives as needed. 5. Tobacco abuse: Patient has been counseled regarding tobacco cessation, start nicotine replacement therapy. 6. Daily alcohol use: The patient has been counseled regarding alcohol moderation. We will start him on ASE protocol. 7. Abnormal liver function test: Likely secondary to alcohol use. We will recheck LFTs. 8. Marijuana use: The patient has been counseled regarding marijuana cessation. 9. Acute hypoxic respiratory failure, likely secondary to chronic obstructive pulmonary disease exacerbation as well as rhabdomyolysis. He will receive intravenous fluids for rhabdomyolysis and his CK level will be rechecked. Many thanks for allowing me to participate in your patient's care. Please feel free to contact me with any questions or concerns. LEVEL OF RISK: High. LEVEL OF COMPLEXITY: High. MTDD
[2017-08-15] MEDS: Sodium Chloride 0.9% 1,000 ML IV SCH (14:58)
[2017-08-15] MEDS: Azithromycin 500 MG in Sodium Chloride 0.9% 250 ML 250 ML IVPB SCH (15:00)
[2017-08-15] MEDS: Nicotine 21 MG PATCH TD SCH (15:01)
[2017-08-15 15:47] LABS: Troponin I Less than 0.010 ng/mL (< 0.028)
[2017-08-15 15:53] LABS: CKMB 6.8 ng/mL (0-6.6); Critical Call CKMBM RESULT DECREASING
[2017-08-15 18:32] LABS: CKMB 6.2 ng/mL (0-6.6); Troponin I Less than 0.010 ng/mL (< 0.028)
[2017-08-15 19:06] LABS: Troponin I Less than 0.010 ng/mL (< 0.028)
[2017-08-16 05:54] LABS: #Lymphocytes 0.8 thou/uL (1.20-3.40); #Monocytes 0.4 thou/uL (0.11-0.59); #Neutrophils 5.9 thou/uL (1.40-6.50); %Basophils 0.2 % (0.0-1.0); %Eosinophils 0.2 % (0.0-10.0); %Lymphocytes 11.4 % (21.0-51.0); %Monocytes 5.6 % (0.0-10.0); %Neutrophils 82.6 % (42.0-75.0); Hemoglobin 15.5 g/dL (14.0-18.0); Mean Corpuscular HGB CONC 33.3 g/dL (32.0-36.0); Mean Corpuscular Volume 99.1 fl (80.0-94.0); Mean Platelet Volume 7.2 fL (7.4-10.4); Platelet Count 215 thou/uL (130-400); RBC Distribution Width 11.3 % (11.5-14.5); Red Blood Cell (RBC) Count 4.71 mill/uL (4.70-6.10); White Blood Cell (WBC) Count 7.2 thou/uL (4.8-10.8)
[2017-08-16] MEDS: Sodium Chloride 0.9% 1,000 ML IV SCH ×2 (06:13→20:45)
[2017-08-16 06:27] LABS: Anion Gap 14 mmol/L (10-20); BUN (Urea Nitrogen) 12 mg/dL (8.4-25.7); Calc. Creatinine Clearance 95 mL/min (70-130); Calcium 9.6 mg/dL (7.8-10.44); Carbon Dioxide 25 mmol/L (22-29); Chloride 102 mmol/L (98-107); Estimated GFR-MDRD Greater than 90; Glucose 130 mg/dL (70-105); Potassium 3.9 mmol/L (3.5-5.1); Sodium 137 mmol/L (136-145)
[2017-08-16 06:28] LABS: ALT (SGPT) 27 U/L (8-55); AST (SGOT) 37 U/L (5-34); Albumin 4.1 g/dL (3.5-5.0); Alkaline Phosphatase 79 U/L (40-150); Bilirubin, Direct 0.4 mg/dL (0.1-0.3); Bilirubin, Total 0.9 mg/dL (0.2-1.2); CK (CPK) 485 U/L (30-200); Protein, Total 7.7 g/dL (6.0-8.3)
[2017-08-16] MEDS: Enoxaparin Sodium 40 MG/0.4 ML SYRINGE SC SCH (08:48)
[2017-08-16] MEDS: cefTRIAXone\\ROCEPHIN 1 GM in Sodium Chloride 0.9% 100 ML IVPB SCH (11:30)
[2017-08-16] MEDS: Nicotine 21 MG PATCH TD SCH (14:16)
[2017-08-16] MEDS: Azithromycin 500 MG in Sodium Chloride 0.9% 250 ML 250 ML IVPB SCH (14:16)
--- NOTE | 2017-08-16 16:27 | PDOC.PN ---
- Subjective Encounter Start Date: 08/16/17 Encounter Start Time: 09:00 Pt seen for followup re: COPD exacerbation. Denies chest pain, nausea or vomiting. Cough+, sputum+, no fevers. - Objective MAR Reviewed: Yes Vital Signs & Weight: Vital Signs (12 hours) Temp Pulse Resp BP BP Pulse Ox 08/16/17 15:31 97.9 F 76 18 146/83 H 95 08/16/17 14:04 85 18 98 08/16/17 11:29 98.6 F 77 18 150/89 H 08/16/17 07:49 98.6 F 78 18 08/16/17 07:44 98.6 F 78 18 116/71 95 08/16/17 07:25 70 18 99 08/16/17 04:29 98.5 F 74 18 114/73 96 Weight Admit Weight 164 lb 9.6 oz Weight 164 lb 9.6 oz I&O: 08/15/17 08/16/17 08/17/17 06:59 06:59 06:59 Intake Total 650 Balance 650 Result Diagrams: 08/16/17 05:04 08/16/17 05:04 EKG Reviewed by me: Yes (Tele: NSR) Phys Exam - Physical Examination Constitutional: NAD HEENT: moist MMs, sclera anicteric, oral pharynx no lesions, 2+ tonsils Neck: no nodes, supple, full ROM JVD Respiratory: no wheezing, no rhonchi Anupam crackles Cardiovascular: RRR, no rub Gastrointestinal: soft, non-tender, no distention, positive bowel sounds Musculoskeletal: edema present Neurological: moves all 4 limbs Psychiatric: normal affect, A&O x 3 Dx/Plan (1) COPD exacerbation Code(s): J44.1 - CHRONIC OBSTRUCTIVE PULMONARY DISEASE W (ACUTE) EXACERBATION Status: Acute Comment: continue oxygen, steroids, bronchodilators and steroids (2) Rhabdomyolysis Code(s): M62.82 - RHABDOMYOLYSIS Status: Acute Comment: CK improving (3) HTN (hypertension) Code(s): I10 - ESSENTIAL (PRIMARY) HYPERTENSION Status: Chronic Qualifiers: Hypertension type: essential hypertension Qualified Code(s): I10 - Essential (primary) hypertension Comment: Monitor vital signs, titrate antihypertensives as needed (4) Tobacco abuse Code(s): Z72.0 - TOBACCO USE Status: Chronic Comment: continue nicotine replacement therapy (5) Alcohol abuse Code(s): F10.10 - ALCOHOL ABUSE, UNCOMPLICATED Status: Chronic Comment: continue ASE protocol (6) CAD (coronary artery disease) Code(s): I25.10 - ATHSCL HEART DISEASE OF [place] CORONARY ARTERY W/O ANG PCTRS Status: Chronic Qualifiers: Coronary Disease-Associated Artery/Lesion type: bypass graft [place] vs. transplanted heart: [place] heart Associated angina: without angina Qualified Code(s): I25.810 - Atherosclerosis of coronary artery bypass graft(s) without angina pectoris Comment: stable (7) Dyslipidemia Code(s): E78.5 - HYPERLIPIDEMIA, UNSPECIFIED Status: Chronic (8) Chest pain Code(s): R07.9 - CHEST PAIN, UNSPECIFIED Status: Resolved - Plan * . Review of Systems - Review of Systems Constitutional: negative: fever, chills, sweats, weakness, malaise Respiratory: Cough, Sputum. negative: Dry, Shortness of Breath, Hemoptysis, SOB with Excertion, Pleuritic Pain, Wheezing Cardiovascular: negative: chest pain, palpitations, orthopnea, paroxysmal nocturnal dyspnea, edema, light headedness Gastrointestinal: negative: Nausea, Vomiting, Abdominal Pain, Diarrhea, Constipation, Melena, Hematochezia Genitourinary: negative: Dysuria, Frequency, Incontinence, Hematuria, Retention - Medications/Allergies Allergies/Adverse Reactions: Allergies Allergy/AdvReac Type Severity Reaction Status Date / Time No Known Drug Allergies Allergy Verified 07/27/16 15:14 Medications: Current Medications Acetaminophen (Tylenol) 650 mg PO Q4H PRN PRN Reason: Headache/Fever or Pain Acetaminophen (Tylenol) 650 mg WA Q4H PRN PRN Reason: Headache/Fever or Pain Albuterol/Ipratropium (Duoneb) 3 ml NEB [id number] PRN PRN Reason: SOB &/or Wheezing Last Admin: 08/15/17 21:55 Dose: 3 ml Albuterol/Ipratropium (Duoneb) 3 ml NEB [id number] [facility] Last Admin: 08/16/17 14:04 Dose: 3 ml Bisacodyl (Dulcolax) 10 mg PO DAILYPRN PRN PRN Reason: Constipation Enoxaparin Sodium (Lovenox) 40 mg SC 0900 [facility] Last Admin: 08/16/17 08:48 Dose: 40 mg Azithromycin 500 mg/ Sodium (Chloride) 250 mls @ 250 mls/hr IVPB Q24HR [facility] Last Admin: 08/16/17 14:16 Dose: 250 mls Ceftriaxone Sodium 1 gm/ (Sodium Chloride) 100 mls @ 200 mls/hr IVPB Q24HR [facility] Last Admin: 08/16/17 11:30 Dose: 100 mls Sodium Chloride (Normal Saline 0.9%) 1,000 mls @ 70 mls/hr IV .[id number] [facility] Last Admin: 08/16/17 06:13 Dose: 1,000 mls Methylprednisolone Sodium Succinate (Solu-Medrol) 40 mg IVP Q6HR [facility] Last Admin: 08/16/17 11:30 Dose: 40 mg Nicotine (Nicoderm Patch) 21 mg TD Q24HR [facility] Last Admin: 08/16/17 14:16 Dose: 21 mg Sodium Chloride (Flush - Normal Saline) 10 ml IVF Q12HR [facility] Last Admin: 08/16/17 08:47 Dose: Not Given Sodium Chloride (Flush - Normal Saline) 10 ml IVF PRN PRN PRN Reason: Saline Flush Last Admin: 08/16/17 06:13 Dose: 10 ml
[2017-08-16] MEDS ORDERED: Acetaminophen 325 MG TAB PO PRN (16:34)
[2017-08-16] MEDS: Mometasone/Formoterol 120 PUFF INHALER INH SCH (18:35)
[2017-08-17 05:12] LABS: ALT (SGPT) 23 U/L (8-55); AST (SGOT) 26 U/L (5-34); Albumin 3.6 g/dL (3.5-5.0); Alkaline Phosphatase 65 U/L (40-150); Anion Gap 13 mmol/L (10-20); BUN (Urea Nitrogen) 11 mg/dL (8.4-25.7); Bilirubin, Direct 0.3 mg/dL (0.1-0.3); Bilirubin, Total 0.6 mg/dL (0.2-1.2); Calc. Creatinine Clearance 100 mL/min (70-130); Carbon Dioxide 24 mmol/L (22-29); Chloride 105 mmol/L (98-107); Estimated GFR-MDRD Greater than 90; Glucose 148 mg/dL (70-105); Potassium 3.9 mmol/L (3.5-5.1); Protein, Total 6.7 g/dL (6.0-8.3); Sodium 138 mmol/L (136-145)
[2017-08-17 05:28] LABS: Band 15 % (5-11); Hemoglobin 14.3 g/dL (14.0-18.0); Lymphocytes 8 % (21-51); MDiff Complete? YES; Mean Corpuscular HGB CONC 33.6 g/dL (32.0-36.0); Mean Corpuscular Hemoglobin 33.5 pg (27.0-31.0); Mean Corpuscular Volume 99.7 fl (80.0-94.0); Mean Platelet Volume 7.4 fL (7.4-10.4); Monocytes 3 % (0-10); Neutrophil 74 % (42-75); Platelet Count 189 thou/uL (130-400); RBC Distribution Width 11.4 % (11.5-14.5); Red Blood Cell (RBC) Count 4.28 mill/uL (4.70-6.10)
[2017-08-17] MEDS: Mometasone/Formoterol 120 PUFF INHALER INH SCH ×2 (06:18→19:22)
[2017-08-17] MEDS: Aspirin 81 mg Enteric Coated Tablet PO SCH (08:56)
[2017-08-17] MEDS: FLUoxetine HCl 20 MG CAP PO SCH (08:56)
[2017-08-17] MEDS: Atorvastatin Calcium 10 MG TAB PO SCH (08:56)
[2017-08-17] MEDS: Folic Acid 1 MG TAB PO SCH (08:56)
[2017-08-17] MEDS: Enoxaparin Sodium 40 MG/0.4 ML SYRINGE SC SCH (08:56)
[2017-08-17] MEDS: Sodium Chloride 0.9% 1,000 ML IV SCH ×2 (08:57→23:54)
[2017-08-17] MEDS: cefTRIAXone\\ROCEPHIN 1 GM in Sodium Chloride 0.9% 100 ML IVPB SCH (13:18)
[2017-08-17] MEDS: Nicotine 21 MG PATCH TD SCH (14:21)
[2017-08-17] MEDS: Azithromycin 500 MG in Sodium Chloride 0.9% 250 ML 250 ML IVPB SCH (14:21)
--- NOTE | 2017-08-17 18:07 | PDOC.PN ---
- Subjective Encounter Start Date: 08/17/17 Encounter Start Time: 09:40 Pt seen for followup re: COPD exacerbation. Feels better. No chest pain. Shortness of breath is better. Still has cough. - Objective MAR Reviewed: Yes Vital Signs & Weight: Vital Signs (12 hours) Temp Pulse Resp BP BP Pulse Ox 08/17/17 16:00 97.9 F 73 16 133/82 133/82 96 08/17/17 13:28 80 18 97 08/17/17 12:00 130/72 08/17/17 11:16 97.9 F 80 16 130/72 97 08/17/17 08:00 98.3 F 77 18 128/79 91 L 08/17/17 07:39 98.3 F 77 18 128/79 91 L 08/17/17 06:22 95 08/17/17 06:18 74 16 95 Weight Admit Weight 164 lb 9.6 oz Weight 164 lb 9.6 oz I&O: 08/16/17 08/17/17 08/18/17 06:59 06:59 06:59 Intake Total 650 1520 2520 Output Total 2100 Balance 650 -580 2520 Result Diagrams: 08/17/17 04:18 08/17/17 04:18 Additional Labs: Labs reviewed by me Phys Exam - Physical Examination Constitutional: NAD HEENT: moist MMs, sclera anicteric, oral pharynx no lesions, 2+ tonsils Neck: no nodes, no JVD, supple, full ROM Respiratory: no rales, wheezing present Cardiovascular: RRR, no rub S1, S2 Gastrointestinal: soft, non-tender, no distention, positive bowel sounds Musculoskeletal: edema present Neurological: moves all 4 limbs Psychiatric: normal affect, A&O x 3 Dx/Plan (1) COPD exacerbation Code(s): J44.1 - CHRONIC OBSTRUCTIVE PULMONARY DISEASE W (ACUTE) EXACERBATION Status: Acute Comment: Improving with oxygen, steroids, bronchodilators and steroids. Change steroids and antibiotics to oral. (2) Rhabdomyolysis Code(s): M62.82 - RHABDOMYOLYSIS Status: Acute Comment: Improved. (3) HTN (hypertension) Code(s): I10 - ESSENTIAL (PRIMARY) HYPERTENSION Status: Chronic Qualifiers: Hypertension type: essential hypertension Qualified Code(s): I10 - Essential (primary) hypertension Comment: Controlled (4) Tobacco abuse Code(s): Z72.0 - TOBACCO USE Status: Chronic Comment: continue nicotine replacement therapy (5) Alcohol abuse Code(s): F10.10 - ALCOHOL ABUSE, UNCOMPLICATED Status: Chronic Comment: on ASE protocol (6) CAD (coronary artery disease) Code(s): I25.10 - ATHSCL HEART DISEASE OF [place] CORONARY ARTERY W/O ANG PCTRS Status: Chronic Qualifiers: Coronary Disease-Associated Artery/Lesion type: bypass graft [place] vs. transplanted heart: [place] heart Associated angina: without angina Qualified Code(s): I25.810 - Atherosclerosis of coronary artery bypass graft(s) without angina pectoris Comment: stable (7) Dyslipidemia Code(s): E78.5 - HYPERLIPIDEMIA, UNSPECIFIED Status: Chronic - Plan * . Review of Systems - Review of Systems Constitutional: weakness. negative: fever, chills, sweats, malaise Respiratory: Cough, Shortness of Breath, SOB with Excertion, Sputum. negative: Dry, Hemoptysis, Pleuritic Pain, Wheezing Cardiovascular: negative: chest pain, palpitations, orthopnea, paroxysmal nocturnal dyspnea, edema, light headedness Gastrointestinal: negative: Nausea, Vomiting, Abdominal Pain, Diarrhea, Constipation, Melena, Hematochezia Genitourinary: negative: Dysuria, Frequency, Incontinence, Hematuria, Retention - Medications/Allergies Allergies/Adverse Reactions: Allergies Allergy/AdvReac Type Severity Reaction Status Date / Time No Known Drug Allergies Allergy Verified 07/27/16 15:14 Medications: Current Medications Acetaminophen (Tylenol) 650 mg PO Q4H PRN PRN Reason: Headache/Fever or Pain Last Admin: 08/17/17 08:59 Dose: 650 mg Acetaminophen (Tylenol) 650 mg NM Q4H PRN PRN Reason: Headache/Fever or Pain Acetaminophen (Tylenol) 650 mg PO Q4H PRN PRN Reason: Headache/Fever or Pain Albuterol/Ipratropium (Duoneb) 3 ml NEB [id number] PRN PRN Reason: SOB &/or Wheezing Last Admin: 08/15/17 21:55 Dose: 3 ml Albuterol/Ipratropium (Duoneb) 3 ml NEB [id number] [facility] Last Admin: 08/17/17 13:28 Dose: 3 ml Aspirin (Ecotrin) 81 mg PO DAILY [facility] Last Admin: 08/17/17 08:56 Dose: 81 mg Atorvastatin Calcium (Lipitor) 10 mg PO DAILY [facility] Last Admin: 08/17/17 08:56 Dose: 10 mg Bisacodyl (Dulcolax) 10 mg PO DAILYPRN PRN PRN Reason: Constipation Enoxaparin Sodium (Lovenox) 40 mg SC 0900 [facility] Last Admin: 08/17/17 08:56 Dose: 40 mg Fluoxetine HCl (Prozac) 20 mg PO DAILY [facility] Last Admin: 08/17/17 08:56 Dose: 20 mg Folic Acid (Folvite) 1 mg PO DAILY [facility] Last Admin: 08/17/17 08:56 Dose: 1 mg Azithromycin 500 mg/ Sodium (Chloride) 250 mls @ 250 mls/hr IVPB Q24HR [facility] Last Admin: 08/17/17 14:21 Dose: 250 mls Ceftriaxone Sodium 1 gm/ (Sodium Chloride) 100 mls @ 200 mls/hr IVPB Q24HR [facility] Last Admin: 08/17/17 13:18 Dose: 100 mls Sodium Chloride (Normal Saline 0.9%) 1,000 mls @ 70 mls/hr IV .[id number] [facility] Last Admin: 08/17/17 08:57 Dose: 1,000 mls Methylprednisolone Sodium Succinate (Solu-Medrol) 40 mg IVP Q6HR [facility] Last Admin: 08/17/17 17:20 Dose: 40 mg Metoprolol Succinate (Toprol Xl) 25 mg PO DAILY [facility] Last Admin: 08/17/17 08:56 Dose: 25 mg Mometasone Furoate/Formoterol Fumar (Dulera 100 Mcg/5 Mcg Inhaler) 2 puff INH BID-RT [facility] Last Admin: 08/17/17 06:18 Dose: 2 puff Nicotine (Nicoderm Patch) 21 mg TD Q24HR [facility] Last Admin: 08/17/17 14:21 Dose: 21 mg Pantoprazole Sodium (Protonix) 40 mg PO DAILY [facility] Last Admin: 08/17/17 08:56 Dose: 40 mg Sodium Chloride (Flush - Normal Saline) 10 ml IVF Q12HR [facility] Last Admin: 08/17/17 08:57 Dose: Not Given Sodium Chloride (Flush - Normal Saline) 10 ml IVF PRN PRN PRN Reason: Saline Flush Last Admin: 08/16/17 06:13 Dose: 10 ml Thiamine HCl (Thiamine) 100 mg PO DAILY [facility] Last Admin: 08/17/17 08:56 Dose: 100 mg
[2017-08-17] MEDS: Cefdinir 300 MG CAP PO SCH (20:17)
[2017-08-18 05:24] LABS: #Lymphocytes 1.3 thou/uL (1.20-3.40); #Monocytes 0.7 thou/uL (0.11-0.59); #Neutrophils 7.8 thou/uL (1.40-6.50); %Basophils 0.2 % (0.0-1.0); %Eosinophils 0.1 % (0.0-10.0); %Lymphocytes 13.5 % (21.0-51.0); %Monocytes 7.6 % (0.0-10.0); %Neutrophils 78.7 % (42.0-75.0); Hemoglobin 14.1 g/dL (14.0-18.0); Mean Corpuscular Hemoglobin 33.1 pg (27.0-31.0); Platelet Count 181 thou/uL (130-400); RBC Distribution Width 11.5 % (11.5-14.5); Red Blood Cell (RBC) Count 4.26 mill/uL (4.70-6.10); White Blood Cell (WBC) Count 9.9 thou/uL (4.8-10.8)
[2017-08-18 05:58] LABS: Anion Gap 9 mmol/L (10-20); BUN (Urea Nitrogen) 10 mg/dL (8.4-25.7); Calc. Creatinine Clearance 105 mL/min (70-130); Carbon Dioxide 27 mmol/L (22-29); Chloride 107 mmol/L (98-107); Estimated GFR-MDRD Greater than 90; Glucose 91 mg/dL (70-105); Potassium 3.8 mmol/L (3.5-5.1); Sodium 139 mmol/L (136-145)
[2017-08-18] MEDS: Mometasone/Formoterol 120 PUFF INHALER INH SCH (07:39)
[2017-08-18] MEDS ORDERED: predniSONE 50 MG TAB PO SCH (08:00)
[2017-08-18] MEDS: Folic Acid 1 MG TAB PO SCH (08:54)
[2017-08-18] MEDS: Enoxaparin Sodium 40 MG/0.4 ML SYRINGE SC SCH (08:54)
[2017-08-18] MEDS: FLUoxetine HCl 20 MG CAP PO SCH (08:54)
[2017-08-18] MEDS: Cefdinir 300 MG CAP PO SCH (08:54)
[2017-08-18] MEDS: Aspirin 81 mg Enteric Coated Tablet PO SCH (08:54)
[2017-08-18] MEDS: Atorvastatin Calcium 10 MG TAB PO SCH (08:54)
[2017-08-18] MEDS ORDERED: Bisacodyl 5 MG TAB PO SCH (09:00)
--- NOTE | 2017-08-18 09:27 | DIS ---
DATE OF ADMISSION: 08/15/2017 DATE OF DISCHARGE: 08/18/2017 PRIMARY CARE PROVIDER: Dr. Karel Rizo. DISCHARGE DIAGNOSES: 1. Chronic obstructive pulmonary disease exacerbation. 2. Rhabdomyolysis. CONDITION OF PATIENT ON THE DAY OF DISCHARGE: Stable. I assessed Mr. Mera on the day of disch beckie. He denies any chest pain or shortness of breath. Cough is better. Vital signs are stable. S 1 and S2 are heard, regular. Lungs are clear to auscultation bilaterally. DISCHARGE MEDICATIONS: Tylenol p.r.n., Albuterol 2 puffs every 6 hours, aspirin 81 mg daily, Lipitor 10 mg daily, Symbicort 80/4.5 two puffs 2 times a day, cefdinir 300 mg 2 times a day for 7 more days , Prozac 20 mg daily, folic acid 1 mg daily, ibuprofen p.r.n., Medrol Dosepak, Toprol-XL 25 mg daily, Nicoderm 21 mg patch daily, omeprazole 20 mg daily, thiamine 100 mg daily. HOSPITAL COURSE: Mr. Mera is a pleasant 62-year-old gentleman who was admitted to [facility] for COPD exacerbation on 08/15/[address]. [address] angiogram of the chest done on the day of admission, which did not reveal any pulmonary embolism to the level of segmental arteries. He had multiple hypodensities in the left and right renal cortex, incompletely evaluated. These le sions had attenuation coefficient suggesting simple cysts. He was treated with oxygen, steroids, bronchodilators and antibiotics. He improved clinically. At the time of admission, he also had rhabdomyolysis. He received intravenous fluids, with improveme nt of his creatinine kinase to 485 on 08/16/2017 from 792 on 08/15/2017. He had a normal BNP during this hospitalization. On the day of discharge, he has normal sodium, normal potassium, normal creatinine, normal white coun t, normal hemoglobin and normal platelet count. CK level is pending at the time of this dictation. CONSULTATIONS DURING THIS HOSPITALIZATION: None. DISCHARGE DESTINATION: Home. TOTAL AMOUNT OF TIME SPENT COORDINATING THIS DISCHARGE: 33 minutes.
[2017-08-18 11:58] VITALS: BP 142/90; TEMP 98
== END 2017-08-18 13:30 | disposition home or self-care (01) | DRG 189 ==
LOC: ERS 08:16 → 2NO 11:25 → T4-B 08-16 17:56
PROVIDERS: ADMIT Internal Medicine; ATTEND Internal Medicine
DX: J96.01 Acute respiratory failure with hypoxia (principal); J44.1 Chronic obstructive pulmonary disease with (acute) exacerbation; M62.82 Rhabdomyolysis; N30.90 Cystitis, unspecified without hematuria; I25.10 Atherosclerotic heart disease of native coronary artery without angina pectoris; I10 Essential (primary) hypertension; H54.61 Unqualified visual loss, right eye, normal vision left eye; F31.9 Bipolar disorder, unspecified; Z79.899 Other long term (current) drug therapy; K21.9 Gastro-esophageal reflux disease without esophagitis; J45.909 Unspecified asthma, uncomplicated; F17.210 Nicotine dependence, cigarettes, uncomplicated; F12.90 Cannabis use, unspecified, uncomplicated; F10.10 Alcohol abuse, uncomplicated
CPT/HCPCS: 36415; 71045; 71275; 80048; 80053; 80076; 81003; 81015; 82550; 82553; 83690; 83880; 84484; 85025; 93005; 94640; 94664; 96361; 96374; 96375; 99406; A4216; C9113; J0456; J0696; J1650; J2920; J2930; J7050; J7620; Q0162

== ENCOUNTER 2017-09-09 07:43 | Outpatient (CLI) | payer OTHER ==
--- NOTE | 2017-09-09 09:29 | RAD ---
CERVICAL SPINE: Date: 09/09/17 COMPARISON: None. HISTORY: Left shoulder pain, arm pain, cervical disc disorder with myelopathy. FINDINGS: Neutral lateral imaging of the cervical spine demonstrates no significant anterolisthesis or retrolis thesis. There is mild posterior osteophyte at C4-5 and C5-6, as well as mild anterior osteophyte form ation at C5-6 and C6-7. On flexion, there is no significant anterolisthesis or retrolisthesis. There is also no significant anterolisthesis or retrolisthesis seen on extension imaging. IMPRESSION: Cervical spine degenerative change as above. POS: [facility]
== END 2017-09-09 07:44 | disposition home or self-care (01) ==
LOC: TBSIIMAG 07:43
PROVIDERS: ATTEND Neurological Surgery
DX: M50.00 Cervical disc disorder with myelopathy, unspecified cervical region (principal); M47.892 Other spondylosis, cervical region
CPT/HCPCS: 72040

== ENCOUNTER 2018-01-17 07:48 | Emergency (ER) | payer OTHER | END 2018-01-17 15:50 | disposition home or self-care (01) | LOC: ERS 07:48 | DX: L72.3 Sebaceous cyst (principal) | CPT/HCPCS: 99282 ==

== ENCOUNTER 2018-02-11 11:42 | Outpatient (CLI) | payer OTHER ==
[2018-02-11 12:55] LABS: Hemoglobin 15.3 g/dL (14.0-18.0); Mean Corpuscular HGB CONC 32.3 g/dL (32.0-36.0); Mean Corpuscular Hemoglobin 31.8 pg (27.0-31.0); Mean Corpuscular Volume 98.5 fL (78.0-98.0); Mean Platelet Volume 7.5 fL (7.4-10.4); Platelet Count 222 thou/uL (130-400); RBC Distribution Width 12.7 % (11.5-14.5); White Blood Cell (WBC) Count 9.3 thou/uL (4.8-10.8)
[2018-02-11 13:15] LABS: Anion Gap 13 mmol/L (10-20); BUN (Urea Nitrogen) 9 mg/dL (8.4-25.7); Calc. Creatinine Clearance 0 mL/min (70-130); Calcium 9.5 mg/dL (7.8-10.44); Carbon Dioxide 26 mmol/L (22-29); Chloride 105 mmol/L (98-107); Estimated GFR-MDRD 75; Glucose 101 mg/dL (70-105); Sodium 140 mmol/L (136-145)
[2018-02-11 13:20] LABS: PTT 30.5 SEC (22.9-36.1)
--- NOTE | 2018-02-11 16:49 | EKG ---
Test Reason : Blood Pressure : / mmHG Vent. Rate : 087 BPM Atrial Rate : 087 BPM P-R Int : 156 ms QRS Dur : 086 ms QT Int : 422 ms P-R-T Axes : 080 077 069 degrees QTc Int : 507 ms Normal sinus rhythm Anteroseptal infarct (cited on or before 11-FEB-2018) Prolonged QT Abnormal ECG When compared with ECG of 15-AUG-2017 08:23, Premature ventricular complexes are no longer Present Questionable change in initial forces of Anteroseptal leads Confirmed by DR. Selvin ORTA ([id number]) on 02/11/2018 4:49:23 PM Referred By: EDITH Confirmed By:DR. Selvin ORTA
== END 2018-02-11 11:43 | disposition home or self-care (01) ==
LOC: LABBT 11:42
PROVIDERS: ATTEND Surgery
DX: Z01.818 Encounter for other preprocedural examination (principal); M47.12 Other spondylosis with myelopathy, cervical region
CPT/HCPCS: 80048; 85027; 85610; 85730; 93005; 93010

== ENCOUNTER 2018-02-25 06:04 | Day surgery (SDC) | payer OTHER ==
[2018-02-11 11:55] VITALS: BMI 23.2
[2018-02-25] MEDS ORDERED: CEFAZOLIN 2 GM/50 ML BAG ONE (06:29)
[2018-02-25] MEDS ORDERED: Fentanyl 100 MCG/2 ML VIAL ONE ×2 (06:49→08:32)
[2018-02-25] MEDS ORDERED: Bupivacaine HCl 0.5%/Epinephrine 1:200,000/PF 30 ml Vial ONE (07:00)
[2018-02-25] MEDS ORDERED: Lidocaine 2% PF 5 ML VIAL ONE (07:00)
[2018-02-25] MEDS ORDERED: Bacitracin Zinc Ointment 30 gm TUBE ONE (07:49)
[2018-02-25] MEDS ORDERED: PROPOFOL 200 MG/20 ML VIAL ONE (15:05)
[2018-02-25] MEDS ORDERED: Lidocaine 1% PF 5 ML VIAL ONE (15:05)
[2018-02-25] MEDS ORDERED: Dexamethasone 20 MG/5 ML VIAL ONE (15:05)
[2018-02-25] MEDS ORDERED: Ketorolac Tromethamine 30 MG/ML VIAL ONE (15:05)
[2018-02-25] MEDS ORDERED: PHENYLEPHRINE-NS 100 MCG/ML 10 ML SYRINGE ONE (15:05)
[2018-02-25] MEDS ORDERED: Ondansetron PF 4 MG/2 ML Vial ONE (15:05)
--- NOTE | 2018-02-26 13:22 | OP ---
DATE OF PROCEDURE: 02/25/2018 PREOPERATIVE DIAGNOSIS: 1 cm skin cyst, left and right periorbital area. POSTOPERATIVE DIAGNOSIS: 1 cm skin cyst, left and right periorbital area. PROCEDURES PERFORMED: 1. Excision of cyst, left lateral orbit 1 cm. 2. Excision of cyst, right lateral orbit 1 cm. ANESTHESIA: TIVA, local. COMPLICATION: None. SPECIMEN: Cyst. DESCRIPTION OF PROCEDURE: The patient was taken to the operating room and laid supine on the operating room table. After general anesthetic was obtained, the face was prepped and draped in a sterile fashion. An elliptical incision was used to ellipse out the skin and the underlying cyst to the left orbit. The wound was closed using Prolene sutures. The cyst was sent to pathology. Incision was made in the right periorbital area as well to remove the cyst with some skin and the cyst was sent to Pathology. The wound was closed using Prolene. The patient was sent to Recovery in stable condition. All instrument counts, needle counts, and lap counts were correct. Job ID: [id number]
--- NOTE | 2018-04-10 05:25 | PQF ---
[facility] POST DISCHARGE CLINICAL DOCUMENTATION IMPROVEMENT CLARIFICATION FORM l Todays Date: 04/10/18 l Patients Name TWILA JANG l l Admit Date 02/25/18 l Disch Date 02/25/18 Injector Assembler Name Nathan Springer Email: [email or web address] Cell: [phone] To be completed by Injector Assembler: Present Clinical Indicators - Signs / Symptoms Results and Location in Medical Record [ ] Documentation of: [ ] [ ] Documentation of: [ ] [ ] Documentation of: [ ] [ ] Documentation of: [ ] [ ] Risks [ ] [ ] [ ] Treatment [ ] EPIDERMAL INCLUSION CYSTS RIGHT AND LEFT PERIORBITAL AREA QUERY FOR MARGINS OF EXCISED LEFT AND RIGHT PERIORBITAL LESIONS [ ] [ ] To be completed by Physician: MELLISSA FENG The documentation in this patients record requires clarification to ensure coding compliance and accuracy. Check the appropriate box and include in your discharge summary. [ ] [ ] [ ] [ ] Please check this box if this does not apply to this patient [ ] Unable to determine [ ] Other diagnosis: Review the following information and exercise your independent professional judgment in responding to the clarification. Based upon the clinical findings, risk factors, and treatment, please clarify if you are treating one of the above probable or suspected diagnoses. Physician Signature: Date Time MTDD
== END 2018-02-25 10:03 | disposition home or self-care (01) ==
LOC: SDC 06:04
PROVIDERS: ATTEND Surgery
PROC: 0HB1XZZ Excision of Face Skin, External Approach (ICD-10-PCS; principal; 2018-02-25)
DX: L72.0 Epidermal cyst (principal); I10 Essential (primary) hypertension; E78.00 Pure hypercholesterolemia, unspecified; K21.9 Gastro-esophageal reflux disease without esophagitis; J44.9 Chronic obstructive pulmonary disease, unspecified; K25.9 Gastric ulcer, unspecified as acute or chronic, without hemorrhage or perforation; F17.210 Nicotine dependence, cigarettes, uncomplicated; Z95.1 Presence of aortocoronary bypass graft; Z91.09 Other allergy status, other than to drugs and biological substances; Z79.82 Long term (current) use of aspirin; Z79.2 Long term (current) use of antibiotics; Z79.899 Other long term (current) drug therapy
CPT/HCPCS: 88304; 96374; J0670; J1100; J1885; J2001; J2405; J2704; J3010; J3490

== ENCOUNTER 2018-03-19 10:26 | Outpatient (CLI) | payer OTHER ==
--- NOTE | 2018-03-19 11:28 | RAD ---
CHEST 2 VIEWS: HISTORY: Dyspnea. COMPARISON: 12/13/2017. FINDINGS: Cardiac silhouette and pulmonary vasculature are unremarkable. Mediastinum is midline with postopera tive changes. Lungs remain hyperinflated with flattening of each hemidiaphragm and mild bibasilar sc arring. Mild wedge-shaped parenchymal opacity at the right posterior medial lung base partially obsc ures the posterior aspect of the right hemidiaphragm on the lateral view. No pneumothorax. IMPRESSION: Subtle right posterior basilar infiltrate. It has developed since the 12/13/2017 study. Clinical violetta elation regarding other signs and symptoms of right basilar pneumonitis is required. CODE T POS: [facility]
== END 2018-03-19 10:27 | disposition home or self-care (01) ==
LOC: RAD 10:26
PROVIDERS: ATTEND Internal Medicine Critical Care Medicine
DX: R06.00 Dyspnea, unspecified (principal); R91.8 Other nonspecific abnormal finding of lung field
CPT/HCPCS: 71046

== ENCOUNTER 2018-04-12 16:35 | Emergency (ER) | payer OTHER ==
--- NOTE | 2018-04-12 17:47 | CT ---
CT OF HEAD NONCONTRAST 04/12/18 CLINICAL INDICATION: Syncope. History of fall with head injury. Alcohol intoxication. FINDINGS: There is parenchymal atrophy. A moderate sized region of posterior left frontal encephalomalacia is p resent. Superimposed upon mild to moderate chronic microvascular ischemic disease. No intracranial he morrhage, mass effect or midline shift. There is no acute fluid level of the imaged paranasal sinuses . IMPRESSION: 1. No acute intracranial hemorrhage or mass effect. 2. Chronic ischemic disease with superimposed encephalomalacia. POS: [facility]
--- NOTE | 2018-04-12 17:49 | CT ---
CERVICAL SPINE CT NONCONTRAST: 04/12/18 INDICATION: Fall with neck injury and pain. FINDINGS: There is moderate multilevel degenerative changes of the cervical spine. No acute craniocervical dist raction injury, acute compression fracture or significant subluxation. IMPRESSION: Multilevel degenerative changes of the cervical spine, without acute osseous abnormality visualized. POS: [facility]
--- NOTE | 2018-04-12 18:03 | RAD ---
FRONTAL VIEW CHEST: 04/12/18 COMPARISON: 03/19/18 INDICATION: Syncope. FINDINGS: Lungs reveal mild hyperinflation. There is accentuation of the cardiac silhouette and thoracic aorta. No lobar consolidation, Mild interstitial prominence of each lung is similar. IMPRESSION: No significant interval change. POS: [facility]
[2018-04-12 19:29] LABS: #Basophils 0.1 thou/uL (0.0-0.2); #Eosinphils 0.1 thou/uL (0.0-0.7); #Lymphocytes 2.6 thou/uL (1.20-3.40); #Monocytes 0.4 thou/uL (0.11-0.59); #Neutrophils 4.5 thou/uL (1.40-6.50); %Basophils 1.1 % (0.0-1.0); %Eosinophils 0.8 % (0.0-10.0); %Monocytes 5.4 % (0.0-10.0); %Neutrophils 58.8 % (42.0-75.0); Hemoglobin 15.6 g/dL (14.0-18.0); Mean Corpuscular HGB CONC 33.7 g/dL (32.0-36.0); Mean Corpuscular Hemoglobin 32.6 pg (27.0-31.0); Mean Corpuscular Volume 96.8 fL (78.0-98.0); Mean Platelet Volume 7.5 fL (7.4-10.4); Platelet Count 207 thou/uL (130-400); RBC Distribution Width 12.1 % (11.5-14.5); Red Blood Cell (RBC) Count 4.78 mill/uL (4.70-6.10); White Blood Cell (WBC) Count 7.6 thou/uL (4.8-10.8)
[2018-04-12 19:50] LABS: ALT (SGPT) 13 U/L (8-55); AST (SGOT) 24 U/L (5-34); Albumin 4.4 g/dL (3.4-4.8); Alcohol 272 mg/dL (Less than 10); Alkaline Phosphatase 80 U/L (40-150); Anion Gap 17 mmol/L (10-20); BUN (Urea Nitrogen) 9 mg/dL (8.4-25.7); Bilirubin, Total 0.3 mg/dL (0.2-1.2); Calc. Creatinine Clearance 0 mL/min (70-130); Calcium 9.2 mg/dL (7.8-10.44); Carbon Dioxide 23 mmol/L (23-31); Chloride 108 mmol/L (98-107); Estimated GFR-MDRD Greater than 90; Globulin 3.4 g/dL (2.4-3.5); Glucose 92 mg/dL (80-115); Potassium 4.2 mmol/L (3.5-5.1); Protein, Total 7.8 g/dL (5.8-8.1); Sodium 144 mmol/L (136-145)
== END 2018-04-12 20:34 | disposition home or self-care (01) ==
LOC: ERS 16:35
DX: F10.129 Alcohol abuse with intoxication, unspecified (principal); R55 Syncope and collapse; F31.9 Bipolar disorder, unspecified; F41.9 Anxiety disorder, unspecified; F20.9 Schizophrenia, unspecified; F17.200 Nicotine dependence, unspecified, uncomplicated
CPT/HCPCS: 36415; 70450; 71045; 72125; 80053; 80307; 84484; 85025; 93005; 94760

== ENCOUNTER 2018-06-10 10:24 | Outpatient (CLI) | payer OTHER ==
--- NOTE | 2018-06-10 14:40 | CT ---
CT ABDOMEN AND PELVIS WITH IV AND ORAL CONTRAST: History: Abdominal pain. Weight loss. Comparison: 08-23-15 FINDINGS: Lung bases are clear. Cysts arise from the cortex of each kidney. A 0.3 cm calculus is present within the nondilated orestes at the inferior pole left kidney and stable. Spleen, adrenal glands, liver and pancreas have a normal appearance. No enlarged lymph nodes or free fluid. No evidence of bowel obstru ction or inflammation. Appendix not well delineated. No enlarged lymph nodes or free fluid. Urinary b ladder is unremarkable. Distortion of the lumbosacral junction has the appearance of a pars intraarti cularis defect. IMPRESSION: 1. Small nonobstructing left renal calculus, stable. 2. Other chronic type findings are also stable. No acute abnormalities are demonstrated. POS: [facility]
== END 2018-06-10 10:25 | disposition home or self-care (01) ==
LOC: SCSCT 10:24
PROVIDERS: ATTEND Internal Medicine Gastroenterology
DX: R10.9 Unspecified abdominal pain (principal); R63.4 Abnormal weight loss; N20.0 Calculus of kidney; Q76.49 Other congenital malformations of spine, not associated with scoliosis
CPT/HCPCS: 74177; 82565

== ENCOUNTER 2018-06-25 08:44 | Outpatient (CLI) | payer OTHER ==
--- NOTE | 2018-06-25 10:26 | RAD ---
PA AND LATERAL CHEST: History: Dyspena. Comparison: 04-12-18 FINDINGS: Midline sternotomy changes are stable. Heart size is normal. No consolidation is evident. The lungs a re hyperexpanded but clear. No acute osseous abnormality is evident. IMPRESSION: 1. No acute cardiopulmonary abnormalities. 2. Stable post-operative changes of the chest. 3. Hyperexpansion of the lungs likely reflective of underlying COPD. POS: [facility]
== END 2018-06-25 08:45 | disposition home or self-care (01) ==
LOC: RAD 08:44
PROVIDERS: ATTEND Internal Medicine Critical Care Medicine
DX: R06.00 Dyspnea, unspecified (principal); Z98.890 Other specified postprocedural states
CPT/HCPCS: 71046

== ENCOUNTER 2018-07-04 08:27 | Emergency (ER) | payer OTHER ==
[2018-07-04] MEDS ORDERED: Ketorolac Tromethamine 30 MG/ML VIAL ONE (08:49)
--- NOTE | 2018-07-04 08:58 | RAD ---
THREE VIEWS LEFT FOOT: HISTORY: Toe pain. FINDINGS: AP, lateral, and oblique views of the left foot are obtained. Three views left foot demonstrate a calcaneal bone spur. No evidence of acute fractures, subluxations, or bony lesions seen. IMPRESSION: No evidence of acute left foot abnormalities. No evidence of bony lesions or fracture seen. POS: [facility]
== END 2018-07-04 09:45 | disposition home or self-care (01) ==
LOC: ERS 08:27
DX: M79.675 Pain in left toe(s) (principal); G89.29 Other chronic pain; F41.9 Anxiety disorder, unspecified; F31.9 Bipolar disorder, unspecified; F20.9 Schizophrenia, unspecified; F17.200 Nicotine dependence, unspecified, uncomplicated
CPT/HCPCS: 96372; J1885

== ENCOUNTER 2018-07-23 14:14 | Inpatient (IN) | payer OTHER ==
[2018-07-23 15:23] LABS: #Basophils 0.1 thou/uL (0.0-0.2); #Lymphocytes 1.7 thou/uL (1.20-3.40); #Monocytes 0.9 thou/uL (0.11-0.59); %Basophils 1.2 % (0.0-1.0); %Eosinophils 0.6 % (0.0-10.0); %Lymphocytes 21.5 % (21.0-51.0); %Monocytes 11.6 % (0.0-10.0); %Neutrophils 65.2 % (42.0-75.0); Hemoglobin 14.4 g/dL (14.0-18.0); Mean Corpuscular HGB CONC 32.6 g/dL (32.0-36.0); Mean Corpuscular Hemoglobin 31.2 pg (27.0-31.0); Mean Corpuscular Volume 95.7 fL (78.0-98.0); Mean Platelet Volume 7.3 fL (7.4-10.4); Platelet Count 172 thou/uL (130-400); RBC Distribution Width 12.5 % (11.5-14.5); White Blood Cell (WBC) Count 7.7 thou/uL (4.8-10.8)
[2018-07-23 15:30] LABS: ALT (SGPT) 60 U/L (8-55); AST (SGOT) 74 U/L (5-34); Albumin 4.5 g/dL (3.4-4.8); Alkaline Phosphatase 63 U/L (40-150); Anion Gap 18 mmol/L (10-20); BUN (Urea Nitrogen) 7 mg/dL (8.4-25.7); Bilirubin, Total 0.5 mg/dL (0.2-1.2); CK (CPK) 469 U/L (30-200); Calc. Creatinine Clearance 0 mL/min (70-130); Calcium 10.1 mg/dL (7.8-10.44); Carbon Dioxide 23 mmol/L (23-31); Chloride 100 mmol/L (98-107); Estimated GFR-MDRD Greater than 90; Globulin 3.7 g/dL (2.4-3.5); Glucose 81 mg/dL (80-115); Potassium 4.1 mmol/L (3.5-5.1); Protein, Total 8.2 g/dL (5.8-8.1); Sodium 137 mmol/L (136-145)
[2018-07-23] MEDS ORDERED: Cefepime 2 GM VIAL ONE (15:58)
[2018-07-23] MEDS ORDERED: Ondansetron ODT 4 MG TAB PO PRN (17:56)
[2018-07-23] MEDS ORDERED: Ondansetron PF 4 MG/2 ML Vial IVP PRN (17:56)
[2018-07-23] MEDS ORDERED: Acetaminophen 325 MG TAB PO PRN (17:56)
[2018-07-23] MEDS ORDERED: Nicotine 14 MG PATCH TD SCH (18:30)
[2018-07-23 19:17] LABS: Lactic Acid 2.8 mmol/L (0.5-2.2)
[2018-07-23 20:06] VITALS: BMI 22.6
--- NOTE | 2018-07-23 20:26 | HP ---
PRIMARY CARE PHYSICIAN: Dr. Rizo. CHIEF COMPLAINT: Left foot pain. HISTORY OF PRESENT ILLNESS: Mr. Mera is a 63-year-old male with a past medical history of CAD, status post CABG about 3 to 4 years ago; anxiety; bipolar disorder; depression; schizophrenia; hypertension; hyperlipidemia, who had presented to [facility] earlier today after following up with his family doctor, Dr. Rizo. He was referred by his PCP, Dr. Rizo, after obtaining an x-ray of his left foot, which had displayed osteomyelitis of his second toe. He states that he had noticed pain developed about 7 months ago and that he had tried to treat himself at home over the last several months. He states that the pain started to worsen. As of recent, over the last month, he had noticed some redness and swelling of the toe. However, over the last 1 to 2 weeks, the patient has noticed a worsening color change including black of his second digit. He states that he had followed up with his PCP, who had later ordered x-ray of his left foot. He stated that he had noticed some fever and chills that started yesterday. However, denies any headache, blurred vision, or dizziness. Denies any chest pain, palpitations, shortness of breath, any nausea, vomiting, or diarrhea. He states that the pain is localized in his second digit, however, it does track up his left foot into midfoot. He had denied any loss of feeling, numbness, tingling, or swelling of his lower extremities. In the emergency department, he was given a dose of IV vancomycin and IV cefepime. Labs were obtained and his white count was within normal limits. Lactic acid was, however, elevated at 2.7. It was determined that the patient be admitted for further workup and management of his osteomyelitis. Dr. Rosario and General Surgery will be consulted and he will remain on IV antibiotics at this time. Blood cultures were obtained and pending at this time. REVIEW OF SYSTEMS: All other systems reviewed and found to be negative unless mentioned in the HPI. PAST MEDICAL HISTORY: Hypertension, hyperlipidemia, coronary artery disease, COPD. PAST SURGICAL HISTORY: CABG x5 vessel. PSYCHIATRIC HISTORY: Anxiety, depression, bipolar disorder, schizophrenia. SOCIAL HISTORY: The patient reports drinking alcohol daily between one and five drinks. He had denied any drinking today. Does also report smoking about a half a pack daily, but is currently using topical patches. He, however, denies any further illicit drug use. ALLERGIES: NONE. CURRENT HOME MEDICATIONS: 1. Metoprolol succinate 25 mg p.o. daily. 2. Fluoxetine 20 mg p.o. daily. 3. Budesonide/formoterol two puffs inhalation b.i.d. 4. Atorvastatin 10 mg p.o. daily. 5. Aspirin 81 mg p.o. daily. 6. Thiamine 100 mg p.o. daily. 7. Omeprazole 20 mg p.o. daily. 8. Nicotine 21 mg topical patch q.24 hours. 9. Folic acid 1 mg p.o. daily. 10. Albuterol sulfate HFA inhaler two puffs inhalation q.6 hours as needed for shortness of breath. PHYSICAL EXAMINATION: VITAL SIGNS: Blood pressure 159/99, pulse 84, respirations 16, temperature 97.6 degrees Fahrenheit, O2 saturations 97% on room air. GENERAL: The patient is awake, alert, and oriented. No acute distress noted. The patient is lying comfortably in bed. HEENT: Atraumatic, normocephalic. Pupils are round and reactive to light. Extraocular muscles intact. Moist mucous membranes noted. However, poor oral hygiene noted. NECK: Soft and supple. Trachea midline. CARDIOVASCULAR: Positive S1 and S2. Regular rate and rhythm. No murmur auscultated. RESPIRATORY: Clear to auscultation bilaterally. No wheezes, rales, or rhonchi. ABDOMEN: Soft, nontender. Bowel sounds present. MUSCULOSKELETAL: Strength 5+ bilaterally in upper and lower extremities. Moves all extremities equal. Pedal and radial pulses palpable and equal bilaterally. SKIN: Warm, dry, and intact. There is localized swelling with redness and induration noted to the left second toe and tenderness to palpation up to midfoot. PSYCHIATRIC: Good mood and affect. LABORATORY DATA: WBC 7.7, RBC 4.6, hemoglobin 14.4, platelets 172. Sodium 137, potassium 4.1, anion gap 18, BUN 7, creatinine 0.94, estimated GFR greater than 90, glucose 81. Lactic acid 2.7. Creatine kinase 469. DIAGNOSTIC IMAGING: Left foot x-ray from 07/23/2018 displayed findings concerning for osteomyelitis of the distal phalanx of the second toe. ASSESSMENT AND PLAN: 1. Osteomyelitis of left second toe noted on x-ray from earlier today. The patient will be started on IV vancomycin and cefepime at this time. General Surgery will be consulted along with Dr. Rosario for further recommendations for antibiotic therapy. Blood cultures were obtained and pending at this time. We will go ahead and order an MRI for further evaluation of his osteomyelitis. 2. History of chronic obstructive pulmonary disease. The patient is currently asymptomatic at this time. However, he will be restarted on his home regimen along with DuoNeb as needed for any shortness of breath. 3. History of hypertension, currently stable at this time. He will be restarted on his home regimen. 4. Hyperlipidemia. Continue home medications. 5. History of anxiety, depression, bipolar disorder, and schizophrenia. Continue on the patient's home regimen at this time. 6. Deep venous thrombosis and gastrointestinal prophylaxis. 7. Code status: Full code. DISPOSITION: Pending further workup and clinical findings. Job ID: [id number]
[2018-07-23] MEDS: traMADol HCl 50 MG TAB PO PRN (20:30)
[2018-07-23] MEDS: Famotidine 20 MG TAB PO SCH (20:30)
--- NOTE | 2018-07-23 20:51 | CON ---
DATE OF CONSULTATION: HISTORY OF PRESENT ILLNESS: Wallace Mera is a 63-year-old black male, admitted by the hospitalist service today. He has a left second toe pain, swelling. He has osteomyelitis by x-ray. Exam reveals chronic inflammatory changes of the left second toe with marked swelling and tenderness with a distal ulceration. The patient smokes a half a pack a day. Drinks socially and does not have diabetes. Plan is at this time amputation of left second toe through the proximal phalanx. We will plan primary closure. He could probably be discharged home on oral antibiotics. He already has a postoperative shoe. Postoperatively, he can weight bear as tolerated and be discharged home the same day or next day after the surgery. We will plan this tomorrow, . HOME MEDICATIONS: 1. Metoprolol-XL 25 mg a day. 2. Prozac 20 mg a day. 3. Symbicort b.i.d. 4. Atorvastatin 10 mg a day. 5. Aspirin 81 mg a day. 6. Medrol Dosepak. 7. Thiamine 100 mg daily. 8. Omeprazole 20 mg a day. 9. Nicoderm 21 mg q.24 hours. 10. Ibuprofen 400 mg as needed. 11. Cefdinir. 12. Albuterol sulfate inhaler. 13. Proventil inhaler. 14. Tylenol Extra Strength p.r.n. PAST SURGICAL HISTORY: Coronary artery bypass grafting, Dr. Rafa Saleem. The patient is followed by Dr. Robbins. He has seen Dr. De Guzman, 07/28/2016, [facility] for upper endoscopy. PAST MEDICAL HISTORY: Coronary artery disease, tobacco abuse, hypertension, COPD, bipolar disorder, listed in his past records. PHYSICAL EXAMINATION: VITAL SIGNS: 97.6, 84, 159/99. HEAD, EARS, EYES, NOSE AND THROAT: Unremarkable. LUNGS: Clear to auscultation. CARDIAC: Regular rate and rhythm without murmur or gallop. ABDOMEN: Soft and nontender. EXTREMITIES: Palpable femoral and popliteal pulses bilaterally. Left second toe, chronic inflammatory changes, marked swelling overlying distal phalanx. He is very tender. He has a distal ulceration that I could not probe due to his pain. LABORATORY DATA: White count 7, hemoglobin 14. Basic metabolic profile normal. BUN 7, creatinine 0.94. Liver function tests normal. ASSESSMENT/PLAN: 1. Osteomyelitis, left second toe. Plan amputation of the proximal phalanx with primary closure. He probably does have some degree of PAD, but I cannot palpate pedal pulses, but he does have a palpable left popliteal pulse indicating infragenual vascular disease. I have recommended tobacco cessation. We will plan amputation of the second toe through the proximal phalanx with primary closure and the patient could be discharged home the same day or the next day on oral antibiotics. He can follow up in my office in 2 to 3 weeks. Two days to three days postoperatively, he can remove his dressings from his left foot and wash the wound with soap and water in the bath or shower, pat it dry, place antibiotic ointment or Band-Aid. This usually is done as an outpatient. 2. Coronary artery disease. 3. Tobacco abuse. Job ID: [id number]
[2018-07-23] MEDS ORDERED: Non-Formulary Item 1 EACH (Budesonide-Formoterol [Symbicort 80-4.5] 2 PUFF) INH SCH (21:00)
[2018-07-24] MEDS: Cefepime 2 GM in Sodium Chloride 0.9% 100 ML IVPB SCH ×2 (01:10→08:26)
[2018-07-24] MEDS: Sodium Chloride 0.9% 1,000 ML IV SCH ×2 (02:00→08:27)
[2018-07-24] MEDS ORDERED: Vancomycin HCl 1.5 GM in Sodium Chloride 0.9% 250 ML 300 ML IVPB SCH (05:00)
[2018-07-24] MEDS: traMADol HCl 50 MG TAB PO PRN ×2 (05:16→14:36)
[2018-07-24] MEDS ORDERED: Mometasone/Formoterol 120 PUFF INHALER INH SCH (06:30)
[2018-07-24 06:40] LABS: Anion Gap 13 mmol/L (10-20); BUN (Urea Nitrogen) 8 mg/dL (8.4-25.7); Calc. Creatinine Clearance 86 mL/min (70-130); Calcium 9.3 mg/dL (7.8-10.44); Carbon Dioxide 26 mmol/L (23-31); Chloride 102 mmol/L (98-107); Estimated GFR-MDRD Greater than 90; Glucose 81 mg/dL (80-115); Potassium 4.3 mmol/L (3.5-5.1); Sodium 137 mmol/L (136-145)
[2018-07-24 06:48] LABS: Hemoglobin 13.3 g/dL (14.0-18.0); Mean Corpuscular HGB CONC 32.4 g/dL (32.0-36.0); Mean Corpuscular Hemoglobin 31.3 pg (27.0-31.0); Mean Corpuscular Volume 96.5 fL (78.0-98.0); Mean Platelet Volume 7.6 fL (7.4-10.4); Platelet Count 169 thou/uL (130-400); RBC Distribution Width 12.5 % (11.5-14.5); Red Blood Cell (RBC) Count 4.25 mill/uL (4.70-6.10); White Blood Cell (WBC) Count 6.3 thou/uL (4.8-10.8)
--- NOTE | 2018-07-24 07:34 | PRG ---
DATE OF SERVICE: 07/24/2018 SUBJECTIVE: Mr. Mera is doing well today. He remains afebrile. He is n.p.o. for amputation of his left second toe to the proximal phalanx and plan to close the wound. He will have a postoperative shoe. He can weightbear as tolerated, ambulate postoperatively with his postoperative shoe. He can follow up in my office in 2 weeks from my standpoint, the patient will go home postoperatively today on oral antibiotics for 10 days. He does have PAD infragenual disease as he has a popliteal artery. He has ongoing tobacco abuse. I expect this wound to heal without problems. I think further evaluation of his PAD at this point is not necessary. If his wound does not heal as an outpatient, we will seek outpatient further evaluation. Encouraged tobacco cessation. After his surgery today, the patient will have a dressing. He can remove that dressing on Saturday or Saturday and began daily washing the wound with soap and water, apply an antibiotic ointment and Band-Aid to the wound. I will see him in my office as stated above in 10-14 days for suture removal. Job ID: [id number]
[2018-07-24 08:31] LABS: Band 3 % (5-11); Eosinophils 1 % (0-10); Lymphocytes 26 % (21-51); MDiff Complete? YES; Monocytes 14 % (0-10); Neutrophil 56 % (42-75); RBC Morphology Normal
[2018-07-24] MEDS: Famotidine 20 MG TAB PO SCH (08:34)
[2018-07-24] MEDS ORDERED: Atorvastatin Calcium 10 MG TAB PO SCH (09:00)
[2018-07-24] MEDS ORDERED: Enoxaparin Sodium 40 MG/0.4 ML SYRINGE SC SCH (09:00)
[2018-07-24] MEDS ORDERED: Aspirin 81 mg Enteric Coated Tablet PO SCH (09:00)
[2018-07-24] MEDS ORDERED: FLUoxetine HCl 20 MG CAP PO SCH (09:00)
[2018-07-24] MEDS ORDERED: Fentanyl 100 MCG/2 ML VIAL ONE ×3 (11:18→12:27)
[2018-07-24] MEDS ORDERED: Propofol 500 MG/50 ML VIAL ONE (11:18)
[2018-07-24] MEDS ORDERED: Bacitracin Zinc Ointment 30 gm TUBE ONE (11:54)
[2018-07-24] MEDS ORDERED: Morphine Sulfate 2 MG/ML SYRINGE SLOW IVP PRN (12:16)
[2018-07-24] MEDS ORDERED: Promethazine HCl 25 MG/ML VIAL IM PRN (12:16)
[2018-07-24] MEDS ORDERED: HYDROmorphone 2 MG/ML VIAL SLOW IVP PRN (12:16)
[2018-07-24] MEDS ORDERED: Promethazine HCl 25 MG/ML VIAL SLOW IVP PRN (12:16)
[2018-07-24] MEDS ORDERED: Meperidine HCl/PF 25 MG/ML VIAL SLOW IVP PRN (12:16)
[2018-07-24] MEDS ORDERED: Ondansetron HCl/PF 4 MG/2 ML Vial IVP PRN (12:16)
--- NOTE | 2018-07-24 12:46 | OP ---
DATE OF PROCEDURE: 07/24/2018 PREOPERATIVE DIAGNOSES: Peripheral artery disease, left second toe osteomyelitis infection. POSTOPERATIVE DIAGNOSES: Peripheral artery disease, left second toe osteomyelitis infection. PROCEDURES PERFORMED: Amputation of left second toe with primary closure, amputation of the proximal phalanx. ANESTHESIA: TIVA, local. DESCRIPTION OF PROCEDURE: The patient was taken to the operating room where under intravenous sedation, left lower extremity was prepared with ChloraPrep and draped in routine fashion. Incision was made for fishmouth incision for excision of left second toe of the proximal phalanx, transecting the bone, resecting proximally with a rongeur, irrigated. There was some bleeding present. Subcutaneous tissues were approximated with 4-0 Monocryl, skin with 4-0 Prolene. Antibiotic ointment and sterile dressing applied. The patient tolerated the procedure well. Job ID: [id number]
[2018-07-24 16:37] VITALS: BP 130/94; TEMP 97.5
== END 2018-07-24 17:12 | disposition home or self-care (01) | DRG 505 ==
LOC: ERS 14:14 → ONC 16:30 → ERS 17:52
PROVIDERS: ADMIT Emergency Medicine; ATTEND Emergency Medicine
PROC: 0Y6S0Z1 Detachment at Left 2nd Toe, High, Open Approach (ICD-10-PCS; principal; 2018-07-24)
DX: M86.8X7 Other osteomyelitis, ankle and foot (principal); I25.10 Atherosclerotic heart disease of native coronary artery without angina pectoris; F41.9 Anxiety disorder, unspecified; F31.9 Bipolar disorder, unspecified; F20.9 Schizophrenia, unspecified; I73.9 Peripheral vascular disease, unspecified; I10 Essential (primary) hypertension; E78.5 Hyperlipidemia, unspecified; J44.9 Chronic obstructive pulmonary disease, unspecified; F17.210 Nicotine dependence, cigarettes, uncomplicated; Z79.82 Long term (current) use of aspirin; Z95.1 Presence of aortocoronary bypass graft
CPT/HCPCS: 36415; 80048; 80053; 80307; 82550; 83605; 85025; 87040; 93005; 93010; 94760; J0692; J1650; J2704; J3010; J3370; J3490; J7050; Q0162

== ENCOUNTER 2019-06-09 13:07 | Observation (INO) | payer OTHER ==
[2019-06-09 13:44] LABS: #Basophils 0.1 thou/uL (0.0-0.2); #Lymphocytes 1.8 thou/uL (1.20-3.40); #Monocytes 0.8 thou/uL (0.11-0.59); #Neutrophils 3.1 thou/uL (1.40-6.50); %Basophils 1.5 % (0.0-1.0); %Eosinophils 0.5 % (0.0-10.0); %Lymphocytes 30.9 % (21.0-51.0); Hemoglobin 15.7 g/dL (14.0-18.0); Mean Corpuscular HGB CONC 34.5 g/dL (32.0-36.0); Mean Corpuscular Hemoglobin 34.3 pg (27.0-31.0); Mean Corpuscular Volume 99.4 fL (78.0-98.0); Mean Platelet Volume 7.2 fL (7.4-10.4); Platelet Count 205 thou/uL (130-400); Red Blood Cell (RBC) Count 4.58 mill/uL (4.70-6.10); White Blood Cell (WBC) Count 5.8 thou/uL (4.8-10.8)
--- NOTE | 2019-06-09 14:02 | RAD ---
RADIOGRAPH CHEST 1 VIEW: DATE: 06/09/2019 HISTORY: 64-year-old male with chest pain FINDINGS: There are no airspace densities, pulmonary edema, pneumothorax, or cardiomegaly. The lateral costophr enic angles are sharp. IMPRESSION: No acute cardiopulmonary findings.
[2019-06-09 14:07] LABS: ALT (SGPT) 145 U/L (8-55); AST (SGOT) 212 U/L (5-34); Albumin 4.7 g/dL (3.4-4.8); Alkaline Phosphatase 63 U/L (40-110); Anion Gap 17 mmol/L (10-20); BUN (Urea Nitrogen) 7 mg/dL (8.4-25.7); Bilirubin, Total 0.7 mg/dL (0.2-1.2); Calc. Creatinine Clearance 0 mL/min (70-130); Calcium 9.4 mg/dL (7.8-10.44); Carbon Dioxide 24 mmol/L (23-31); Chloride 104 mmol/L (98-107); Estimated GFR-MDRD Greater than 90; Globulin 3.3 g/dL (2.4-3.5); Glucose 87 mg/dL (80-115); Potassium 4.4 mmol/L (3.5-5.1); Sodium 141 mmol/L (136-145)
[2019-06-09 17:58] LABS: Troponin I 0.013 ng/mL (< 0.028)
[2019-06-09] MEDS ORDERED: Nitroglycerin 0.4 MG TAB (25 Tab Bottle) PO PRN (18:45)
[2019-06-09] MEDS ORDERED: Guaifenesin DM 100-10/5 ML UDCUP PO PRN (18:50)
[2019-06-09] MEDS ORDERED: Calcium Carbonate 500 MG ChewTAB PO PRN (18:50)
[2019-06-09] MEDS ORDERED: Ondansetron ODT 4 MG TAB PO PRN (18:50)
[2019-06-09 19:04] VITALS: BMI 20.9
[2019-06-09] MEDS ORDERED: Diazepam 5 MG TAB PO PRN (19:06)
--- NOTE | 2019-06-09 19:06 | PDOC.HHP ---
Hospitalist HPI - History of Present Illness chest pain History of Present Illness: PCP: Dr. Alberto Rizo The History and physical was obtained from the patient and he is a poor historian. The patient is a 64/M with PMH significant for CABG x 5, HTN, HLD, smoker, alcohol abuse, COPD and asthma that presents to the ER for chest pain. The patient reports that he awoke from a nap and had chest pain. Onset sometime in the afternoon, describes as pressure, located on left side of chest, non radiating, exacerbated and relieved by nothing. Reports associated SOB, nausea and vomiting. Denies any pyrosis, abdominal pain. Denies any heart palpitations , orthopnea, or wheezing. For this reason he called EMS. EMS administered nebs x 2, ASA and zofran, which the patient said relieved his symptoms. He told EMS that he did not want to go to the ER, but they convinced him to go anyway. Patient has psychiatric history of bipolar and schizophrenia, sees Dr. Dominguez with [facility], denies any suicidal or homicidal ideation at this time. Admits to non compliance with medication regimen. ED Course: EKG NSR 86 bpm, LVH, no ST elevations Trop negative BNP 19.9 CXR negative for any acute pulmonary process Hospitalist ROS - Review of Systems Constitutional: denies: fever, chills, sweats, weakness, malaise, other ENT: denies: ear pain, ear discharge, nose pain, nose discharge, nose congestion , mouth pain, mouth swelling, throat pain, throat swelling, other Respiratory: reports: cough (chronic), shortness of breath. denies: hemoptysis , SOB with excertion, sputum, wheezing Cardiovascular: reports: chest pain. denies: palpitations, orthopnea, paroxysmal noc. dyspnea, edema, light headedness Gastrointestinal: reports: nausea, vomiting. denies: abdominal pain, diarrhea, constipation, hematochezia Genitourinary: denies: dysuria, frequency, incontinence, hematuria, retention, other Skin: reports: bruising Neurological: denies: weakness, numbness, incoordination, change in speech, confusion, seizures, other Hospitalist History - Past Medical History Source: patient Cardiac: reports: CAD, HTN, Hyperlipidemia Pulmonary: reports: asthma, COPD Psych: reports: Anxiety, Addictions, Bipolar, Depression, Schizophrenia - Past Surgical History Past Surgical History: reports: CABG, Other Other Surgical History: Left second toe, distal phalanx amputation - Family History Other Family History: unable to gather from patient. Poor historian. - Social History Smoking Status: Current every day smoker Tobacco Type: cigarettes Alcohol: reports: Heavy (Daily, 4 beers per day) Drugs: reports: marijuana Living Situation: Alone Occupation[place], in a trailer, on disability Activity level: uses cane/walker - Exam General Appearance: NAD, awake alert Eye: PERRL ENT: normocephalic atraumatic Neck: supple, no JVD, no thyromegaly Heart: RRR, no murmur, no gallops, no rubs Heart - other findings: left pedal pulse thready, right pedal pulse 2+ Respiratory: no wheezes, no rales, no ronchi Respiratory - other findings: diminished to BLL Gastrointestinal: soft, non-tender, non-distended, no guarding, no rigidity Gastrointestinal - other findings: negative boyle sign Extremities: no cyanosis, no edema, clubbing Extremities - other findings: left second toe, distal phalanx amputated Skin: no rashes Skin - other findings: dry skin Psychiatric: normal affect, A&O x 3 Hospitalist Results - Labs Result Diagrams: 06/09/19 13:32 06/09/19 13:32 Lab results: WBC 5.8 thou/uL (4.8-10.8) 06/09/19 13:32 Hgb 15.7 g/dL (14.0-18.0) 06/09/19 13:32 Hct 45.6 % (42.0-52.0) 06/09/19 13:32 MCV 99.4 fL (78.0-98.0) H 06/09/19 13:32 Plt Count 205 thou/uL (130-400) 06/09/19 13:32 Neutrophils % 54.0 % (42.0-75.0) 06/09/19 13:32 Sodium 141 mmol/L (136-145) 06/09/19 13:32 Potassium 4.4 mmol/L (3.5-5.1) 06/09/19 13:32 Chloride 104 mmol/L (98-107) 06/09/19 13:32 Carbon Dioxide 24 mmol/L (23-31) 06/09/19 13:32 BUN 7 mg/dL (8.4-25.7) L 06/09/19 13:32 Creatinine 0.94 mg/dL (0.7-1.3) 06/09/19 13:32 Glucose 87 mg/dL (80-115) 06/09/19 13:32 Calcium 9.4 mg/dL (7.8-10.44) 06/09/19 13:32 Total Bilirubin 0.7 mg/dL (0.2-1.2) 06/09/19 13:32 AST 212 U/L (5-34) H 06/09/19 13:32 ALT 145 U/L (8-55) H 06/09/19 13:32 Alkaline Phosphatase 63 U/L (40-110) 06/09/19 13:32 Troponin I 0.013 ng/mL (< 0.028) 06/09/19 17:21 B-Natriuretic Peptide 19.9 pg/mL (0-100) 06/09/19 13:32 Serum Total Protein 8.0 g/dL (5.8-8.1) 06/09/19 13:32 Albumin 4.7 g/dL (3.4-4.8) 06/09/19 13:32 - EKG Interpretation EKG: NSR, no ST elevations - Radiology Interpretation Chest x-ray Status: report reviewed by me Hospitalist H&P A/P - Plan Plan: Impression: Chest pain, r/o ACS Elevated LFTs HTN HLD Tobacco abuse alcohol abuse COPD Asthma non compliance with medication regimen Bipolar Schizophrenia Anxiety and depression 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
[2019-06-09] MEDS ORDERED: Thiamine HCl 200 MG/2 ML VIAL IM SCH (19:15)
[2019-06-09] MEDS ORDERED: Aspirin 325 MG TAB PO SCH (19:30)
[2019-06-09] MEDS: Famotidine 20 MG TAB PO SCH (20:02)
[2019-06-09 20:41] LABS: Troponin I 0.023 ng/mL (< 0.028)
[2019-06-09 23:12] LABS: Medtox Reader # READER 4
[2019-06-09 23:13] LABS: Amphetamine Not Detected (NotDetected); Barbiturates Screen Not Detected (NotDetected); Benzodiazepine Screen Not Detected (NotDetected); Cocaine Metabolite Screen Not Detected (NotDetected); Medtox Control Line Valid? VALID (VALID); Methadone Not Detected (NotDetected); Methamphetamine Not Detected (NotDetected); Opiate Screen Not Detected (NotDetected); Oxycodone Screen Not Detected (NotDetected); Phencyclidine (PCP) Not Detected (NotDetected); THC/Cannabinoid Screen Not Detected (NotDetected); Tricyclic Screen Not Detected (NotDetected)
[2019-06-09] MEDS: Sodium Chloride 0.9% 1,000 ML IV SCH (23:54)
[2019-06-10] MEDS ORDERED: Diazepam 5 MG TAB PO PRN (04:00)
[2019-06-10 05:14] LABS: #Basophils 0.1 thou/uL (0.0-0.2); #Eosinphils 0.1 thou/uL (0.0-0.7); #Lymphocytes 1.2 thou/uL (1.20-3.40); #Monocytes 0.5 thou/uL (0.11-0.59); %Basophils 1.1 % (0.0-1.0); %Lymphocytes 20.9 % (21.0-51.0); Hemoglobin 15.2 g/dL (14.0-18.0); Mean Corpuscular HGB CONC 33.5 g/dL (32.0-36.0); Mean Corpuscular Hemoglobin 33.7 pg (27.0-31.0); Mean Platelet Volume 7.5 fL (7.4-10.4); Platelet Count 193 thou/uL (130-400); White Blood Cell (WBC) Count 5.9 thou/uL (4.8-10.8)
[2019-06-10 05:23] LABS: ALT (SGPT) 164 U/L (8-55); AST (SGOT) 225 U/L (5-34); Albumin 4.2 g/dL (3.4-4.8); Alkaline Phosphatase 64 U/L (40-110); Anion Gap 15 mmol/L (10-20); BUN (Urea Nitrogen) 6 mg/dL (8.4-25.7); Bilirubin, Total 1.2 mg/dL (0.2-1.2); Calc. Creatinine Clearance 81 mL/min (70-130); Calcium 9.3 mg/dL (7.8-10.44); Carbon Dioxide 25 mmol/L (23-31); Chloride 104 mmol/L (98-107); Estimated GFR-MDRD Greater than 90; Globulin 3.4 g/dL (2.4-3.5); Glucose 72 mg/dL (80-115); Magnesium 1.9 mg/dL (1.6-2.6); Potassium 4.2 mmol/L (3.5-5.1); Protein, Total 7.6 g/dL (5.8-8.1); Sodium 140 mmol/L (136-145)
[2019-06-10] MEDS: Magnesium Oxide 400 MG TAB PO SCH (05:58)
[2019-06-10] MEDS: Aspirin 81 mg Enteric Coated Tablet PO SCH (05:58)
[2019-06-10] MEDS: Thiamine 100 MG TAB PO SCH (05:58)
[2019-06-10] MEDS: Multivitamin W/ Minerals 1 TAB PO SCH (05:58)
[2019-06-10] MEDS: Folic Acid 1 MG TAB PO SCH (05:58)
[2019-06-10] MEDS: Famotidine 20 MG TAB PO SCH ×2 (05:58→20:53)
[2019-06-10] MEDS ORDERED: Regadenoson 0.4 MG/5 ML SYRINGE ONE (10:53)
[2019-06-10] MEDS: Sodium Chloride 0.9% 1,000 ML IV SCH (13:33)
--- NOTE | 2019-06-10 13:50 | NM ---
EXAM: CARDIAC SPECT HISTORY: Chest pain, coronary artery disease, status post CABG, asthma, COPD, hypertension, dyslipide payal, smoker TECHNIQUE: A myocardial perfusion scan was performed using the single isotope 1 day protocol with becky hnetium 99m sestamibi. [10 mCi] was injected intravenously for the rest exam followed by 30 mCi for the stress study. Pharmacologic stress with Lexiscan was monitored and interpreted by KIMBERLEE Dominguez FINDINGS: A fixed defect is seen in the distal anterior wall. No reversible defects are seen. Gated SPECT LVEF: 45% Wall motion exam: Anterior wall hypokinesis IMPRESSION: No evidence of reversible ischemia
--- NOTE | 2019-06-10 19:28 | PDOC.HOSPP ---
- Subjective Encounter Date: 06/10/19 Encounter Time: 13:55 Subjective: pt up in bed still complains of pain to his left chest wall area. - Objective Vital Signs & Weight: Vital Signs (12 hours) Temp Pulse Resp BP BP Pulse Ox 06/10/19 15:39 98.1 F 82 20 128/73 97 06/10/19 12:26 97.9 F 72 16 147/83 H 147/83 H 95 06/10/19 07:36 97.9 F 75 16 128/82 128/82 93 L Weight Weight 159 lb Result Diagrams: 06/10/19 04:34 06/10/19 04:34 Hospitalist ROS - Review of Systems Respiratory: denies: cough, dry, shortness of breath, hemoptysis, SOB with excertion, pleuritic pain, sputum, wheezing, other Cardiovascular: reports: chest pain Gastrointestinal: reports: nausea, abdominal pain - Medication Medications: Active Medications Generic Name Dose Route Start Last Admin Trade Name Freq PRN Reason Stop Dose Admin Aspirin 81 mg 06/10/19 09:00 06/10/19 05:58 Ecotrin PO 81 mg DAILY GEOREG Administration Famotidine 20 mg 06/09/19 21:00 06/10/19 05:58 Pepcid PO 20 mg BID GEORGE Administration Folic Acid 1 mg 06/10/19 09:00 06/10/19 05:58 Folvite PO 1 mg DAILY GEORGE Administration Iron/Minerals/Multivitamins 1 tab 06/10/19 09:00 06/10/19 05:58 Theragran M PO 1 tab DAILY GEORGE Administration Magnesium Oxide 400 mg 06/10/19 09:00 06/10/19 05:58 Magnesium Oxide PO 400 mg DAILY GEORGE Administration Ondansetron HCl 4 mg 06/09/19 18:50 06/09/19 20:02 Zofran Odt PO 4 mg Q6H PRN Administration Nausea/Vomiting Sodium Chloride 10 ml 06/09/19 21:00 06/10/19 05:58 Flush - Normal Saline IVF Not Given Q12HR [facility] Thiamine HCl 100 mg 06/10/19 09:00 06/10/19 05:58 Thiamine PO 100 mg DAILY GEORGE Administration - Exam Heart: negative: RRR, no murmur, no gallops, no rubs, normal peripheral pulses, irregular, diminshed peripheral pulses, murmur present, II/IV, III/IV Respiratory: rales Gastrointestinal: soft, normal bowel sounds Gastrointestinal - other findings: mild pain on palpation to epigastric area and ruq Extremities: negative: no cyanosis, no clubbing, no edema, 1+ LE edema, 2+ LE edema, clubbing Hosp A/P (1) Chest pain Code(s): R07.9 - CHEST PAIN, UNSPECIFIED Status: Resolved (2) Elevated LFTs Code(s): R94.5 - ABNORMAL RESULTS OF LIVER FUNCTION STUDIES Status: Acute (3) Alcohol abuse Code(s): F10.10 - ALCOHOL ABUSE, UNCOMPLICATED Status: Chronic (4) CAD (coronary artery disease) Code(s): I25.10 - ATHSCL HEART DISEASE OF [place] CORONARY ARTERY W/O ANG PCTRS Status: Chronic Qualifiers: Coronary Disease-Associated Artery/Lesion type: bypass graft [place] vs. transplanted heart: [place] heart Associated angina: without angina Qualified Code(s): I25.810 - Atherosclerosis of coronary artery bypass graft(s) without angina pectoris (5) HTN (hypertension) Code(s): I10 - ESSENTIAL (PRIMARY) HYPERTENSION Status: Chronic Qualifiers: Hypertension type: essential hypertension Qualified Code(s): I10 - Essential (primary) hypertension (6) Tobacco abuse Code(s): Z72.0 - TOBACCO USE Status: Chronic - Plan pt's stress test is negative. His ef on stress test is low, however not sure how reliable ef on stress test is. will check echo. He drinks significant alcohol. will also get ruq ultrasound. His hepatitis panel is negative. pt has had a cabg in the past. Not sure if he is complaint with his meds and his cardiology appointment. last stress test echo was 60%.
[2019-06-10] MEDS ORDERED: traZODone HCl 50 MG TAB PO PRN (19:45)
[2019-06-10] MEDS ORDERED: Aripiprazole 15 MG TAB PO SCH (21:00)
[2019-06-10] MEDS ORDERED: Atorvastatin Calcium 10 MG TAB PO SCH (21:00)
[2019-06-11 04:47] LABS: #Basophils 0.1 thou/uL (0.0-0.2); #Eosinphils 0.1 thou/uL (0.0-0.7); #Lymphocytes 1.5 thou/uL (1.20-3.40); #Monocytes 1.3 thou/uL (0.11-0.59); #Neutrophils 5.6 thou/uL (1.40-6.50); %Basophils 0.9 % (0.0-1.0); %Eosinophils 0.6 % (0.0-10.0); %Lymphocytes 17.3 % (21.0-51.0); %Monocytes 14.9 % (0.0-10.0); %Neutrophils 66.3 % (42.0-75.0); Hemoglobin 14.5 g/dL (14.0-18.0); Mean Corpuscular HGB CONC 31.8 g/dL (32.0-36.0); Mean Corpuscular Hemoglobin 32.1 pg (27.0-31.0); Mean Platelet Volume 7.8 fL (7.4-10.4); Platelet Count 185 thou/uL (130-400); RBC Distribution Width 11.9 % (11.5-14.5); Red Blood Cell (RBC) Count 4.52 mill/uL (4.70-6.10); White Blood Cell (WBC) Count 8.4 thou/uL (4.8-10.8)
[2019-06-11 05:15] LABS: ALT (SGPT) 111 U/L (8-55); AST (SGOT) 98 U/L (5-34); Albumin 3.9 g/dL (3.4-4.8); Alkaline Phosphatase 66 U/L (40-110); Anion Gap 12 mmol/L (10-20); BUN (Urea Nitrogen) 8 mg/dL (8.4-25.7); Bilirubin, Total 1.1 mg/dL (0.2-1.2); CK (CPK) 262 U/L (30-200); Calc. Creatinine Clearance 88 mL/min (70-130); Calcium 9.4 mg/dL (7.8-10.44); Carbon Dioxide 27 mmol/L (23-31); Chloride 101 mmol/L (98-107); Estimated GFR-MDRD Greater than 90; Globulin 3.3 g/dL (2.4-3.5); Glucose 98 mg/dL (80-115); Potassium 3.8 mmol/L (3.5-5.1); Protein, Total 7.2 g/dL (5.8-8.1); Sodium 136 mmol/L (136-145)
[2019-06-11] MEDS ORDERED: Mometasone/Formoterol 120 PUFF INHALER INH SCH (06:30)
--- NOTE | 2019-06-11 06:51 | ULT ---
RIGHT UPPER QUADRANT ULTRASOUND: Date: 06/11/2019 INDICATION: Right upper quadrant pain, nausea and vomiting. FINDINGS: Gallbladder is contracted. There is report of a positive sonographic Alfonso's sign. Common bile duct measures 4.2 mm. Visualized liver demonstrates diffuse fatty infiltration. There are small right padmini l cysts measuring 2.0 cm a piece within the superior pole of the right kidney. Right kidney measures 10.9 x 4.9 cm. IMPRESSION: 1. Fatty liver. 2. Contracted gallbladder. 3. Right renal cysts. POS: BH
[2019-06-11] MEDS ORDERED: Citalopram 20 MG TAB PO SCH (09:00)
[2019-06-11] MEDS: Magnesium Oxide 400 MG TAB PO SCH (09:15)
[2019-06-11] MEDS: Famotidine 20 MG TAB PO SCH (09:15)
[2019-06-11] MEDS: Aspirin 81 mg Enteric Coated Tablet PO SCH (09:15)
[2019-06-11] MEDS: Folic Acid 1 MG TAB PO SCH (09:15)
[2019-06-11] MEDS: Thiamine 100 MG TAB PO SCH (09:16)
[2019-06-11] MEDS: Multivitamin W/ Minerals 1 TAB PO SCH (09:16)
--- NOTE | 2019-06-11 10:43 | CT ---
CTA Angio Chest W WO Con 06/11/2019 8:14 AM Indication: Shortness of breath with history of bypass surgery Technique: Multiple CTA images were obtained of the thorax with IV contrast. 3-D rendering: MIP juan pablo nstructed images were created and reviewed. Comparison: CT PE examination dated August 15, 2017 Findings: Pulmonary arteries: No central or segmental pulmonary embolus is evident. Heart and Aorta: Postsurgical change of a prior CABG. Mediastinum:Normal appearing. No enlarged lymph nodes. Lungs:Scattered moderate emphysema. Bibasilar subsegmental volume loss. Pleural space: Clear. Upper Abdomen: There is fatty infiltration of the liver. Visualized adrenal glands are normal appear ing. There are bilateral renal cysts Osseous Structures: No acute osseous abnormality. Soft tissues:No abnormality. Other findings:None. Impression: No central or segmental pulmonary embolus.
[2019-06-11 12:40] LABS: HBCM Index 0.04 S/CO (0-0.79); HBSAg Index 0.26 S/CO (0-0.99); Hep A IgM AB Non-Reactive (NonReactive); Hep A IgM S/CO 0.72 S/CO (0-0.79); Hep B Surf Ag Non-Reactive S/CO (NonReactive); Hep C IgG Ab Non-Reactive (NonReactive); Hep C Index 0.11 S/CO (0-0.79); Hepatitis B Core IgM Abs Non-Reactive (NonReactive)
[2019-06-11] MEDS ORDERED: Iopamidol 370 76% 100 ML VIAL ONE (14:24)
[2019-06-11 16:26] VITALS: BP 127/79; TEMP 98.6
--- NOTE | 2019-06-11 19:01 | CON ---
DATE OF CONSULTATION: 06/11/2019 REQUESTING PHYSICIAN: Vijay Guo MD HISTORY OF PRESENT ILLNESS: This is a 64-year-old man, who was admitted on 06/09/2019 with complaint of chest pain. Acute coronary syndrome has been excluded. This morning, the patient is complaining of right upper quadrant abdominal pain, which is intermittent in nature and has been present over the last two years, associated with episodes of nausea and nonbilious emesis. The pain is exacerbated at times by eating spicy foods. He also reports severe right upper quadrant abdominal pain, usually about two days after binge drinking. The patient denies any fevers or chills. He denies any unexplained weight loss. PAST MEDICAL HISTORY: Significant for coronary artery disease, essential hypertension, hyperlipidemia, COPD, bipolar disorder, and schizophrenia. PAST SURGICAL HISTORY: Pertinent for coronary artery bypass graft. SOCIAL HISTORY: He admits to over 20 pack year cigarette smoking history, he smokes marijuana occasionally. Otherwise, lives independently. Currently unemployed due to disability. FAMILY HISTORY: Noncontributory for this patient's age. PREHOSPITAL MEDICATIONS: Includes: 1. Atorvastatin 10 mg p.o. daily. 2. Aspirin 81 mg p.o. daily. 3. Fluoxetine 20 mg p.o. daily. 4. Aripiprazole 15 mg p.o. at bedtime. 5. Citalopram 20 mg p.o. daily. 6. Toprol-XL 25 mg p.o. daily. 7. Trazodone 100 mg p.o. at bedtime. ALLERGIES: THE PATIENT DENIES ANY KNOWN DRUG ALLERGIES. REVIEW OF SYSTEMS: Ten-point review of systems essentially unremarkable except as stated in past medical history and chief complaint. PHYSICAL EXAMINATION: GENERAL: This reveals a 64-year-old normally developed man, who is otherwise coherent and interactive and appears stated age. The patient is alert and oriented x3. He appears to be in no acute distress at time of my evaluation. VITAL SIGNS: His vital signs include blood pressure 119/74, pulse is 85, respiratory rate is 14, temperature 98.2 degrees Fahrenheit, and oxygen saturation is 96% on room air. HEENT: Reveals normocephalic and atraumatic. Pupils are equal, round, and reactive to light and accommodation. He has no scleral icterus present. HEART: Reveals regular rate and rhythm. No murmurs or gallops auscultated. LUNGS: Clear to auscultation bilaterally. Breathing, regular and unlabored. ABDOMEN: Soft and scaphoid. He has right upper quadrant tenderness to palpation. His liver is palpable approximately two fingerbreadths below the right costal margin. Spleen is nonpalpable below costal margin. He has no peritoneal signs on examination. NEUROLOGIC: Reveals no focal deficits present. LABORATORY FINDINGS: Today include a CBC with 8400 white blood cells hemoglobin and hematocrit 14.5 and 45.7 respectively. Platelet count is 185,000. Metabolic profile; sodium 136, potassium is 3.8, chloride is 101, bicarb is 27, BUN is 8, creatinine 0.89, glucose is 98, and AST and ALT are 98 and 111 respectively, this is in contrast to 225 and 164 yesterday. Hepatitis panel, which was obtained today is nonreactive for viral hepatitis. I have personally reviewed the abdominal ultrasound, which reveals a gallbladder with biliary sludge with no pericholecystic fluid or gallbladder wall thickening present. There is fatty infiltration of the liver noted. CT scan of the chest, which was obtained today was negative for pulmonary embolism. The CT scan; however, showed evidence of fatty infiltration of the liver. IMPRESSION: 1. Chronic right upper quadrant abdominal pain, likely secondary to alcohol hepatitis with hepatic steatosis. 2. There is no clinical or radiographic evidence of acute cholecystitis. Certainly, no evidence of cholelithiasis. RECOMMENDATIONS: I have counseled the patient against alcohol consumption. He needs to seek help with alcohol cessation to allow his liver to recover from the chronic abuse. There is no acute surgical indication for this patient at this time. Thank you again, Dr. Guo, for allowing me the opportunity to participate in the care of this patient. Job ID: [id number]
--- NOTE | 2019-06-12 06:11 | DIS ---
DATE OF ADMISSION: 06/09/2019 DATE OF DISCHARGE: 06/11/2019 PRIMARY CARE PROVIDER: Karel Rizo, DISCHARGE DIAGNOSES: 1. Chest pain. 2. Chest pain most likely secondary to musculoskeletal etiology. 3. Abnormal liver function tests. 4. Alcohol abuse. CONDITION: Condition of the patient on the day of discharge, stable. I assessed Mr. Mera on the day of discharge. He reports chest pain is better. Vital signs are stable. S1 and S2 are heard, regular. Lungs are clear to auscultation bilaterally. He has reproducible left-sided chest wall tenderness. DISCHARGE MEDICATIONS: His statin has been discontinued secondary to abnormal liver function tests. He has been started on thiamine 100 mg daily and multivitamins one tablet daily. Otherwise, no change was made to his pre-admission home medications, which include; 1. Abilify 15 mg at bedtime. 2. Celexa 20 mg daily. 3. Trazodone 100 mg at bedtime as needed. 4. Aspirin 81 mg daily. 5. Symbicort 2 puffs 2 times a day. 6. Prozac 20 mg daily. 7. Toprol-XL 25 mg daily. POST-ACUTE CARE FOLLOWUP: With primary care provider in 3 days. DIET: Heart healthy. ACTIVITY: As tolerated. HOSPITAL COURSE: Mr. Mera is a pleasant 64-year-old gentleman, who was admitted to [facility] on June 09, 2019, for left-sided chest pain. He had nuclear stress test, which showed no evidence of reversible ischemia. He had anterior wall hypokinesis and left ventricular ejection fraction of 45%. He also had a 2D echocardiogram, result is pending at the time of this dictation. He is advised to follow up with primary care provider for the result of 2D echocardiogram. He also had abnormal D-dimer. CT angiogram of the chest did not show any evidence of pulmonary embolism. He had abnormal liver function test. Abdominal ultrasound showed fatty liver and contracted gallbladder as well as right renal cyst. General Surgery Service was consulted. They felt that the abnormal liver function tests were secondary to alcohol abuse and not secondary to biliary pathology. He is being discharged home in a stable condition. Many thanks for allowing me to participate in your patient's care. Please feel free to contact me with any questions or concerns. DISCHARGE DESTINATION: Home. Job ID: [id number]
--- NOTE | 2019-06-13 18:15 | EKG ---
Test Reason : Blood Pressure : / mmHG Vent. Rate : 086 BPM Atrial Rate : 086 BPM P-R Int : 160 ms QRS Dur : 088 ms QT Int : 402 ms P-R-T Axes : 076 071 076 degrees QTc Int : 481 ms Normal sinus rhythm Cannot rule out Anteroseptal infarct , age undetermined -early repolarization Abnormal ECG Left atrial enlargement Left ventricular hypertrophy Confirmed by TOMMY PAUL, CATY Clements ([id number]), subeditor SANJANA KINNEY ([id number]) on 06/13/2019 6:15:09 PM Referred By: Confirmed By:CATY SANDERS MD
== END 2019-06-11 16:45 | disposition home or self-care (01) ==
LOC: ERS 13:07 → 2NO 14:58 → ERS 18:00
PROVIDERS: ADMIT Emergency Medicine; ATTEND Internal Medicine
DX: R07.9 Chest pain, unspecified (principal); R10.11 Right upper quadrant pain; I10 Essential (primary) hypertension; E78.5 Hyperlipidemia, unspecified; J44.9 Chronic obstructive pulmonary disease, unspecified; F10.10 Alcohol abuse, uncomplicated; F31.9 Bipolar disorder, unspecified; F41.9 Anxiety disorder, unspecified; F20.9 Schizophrenia, unspecified; F17.210 Nicotine dependence, cigarettes, uncomplicated; I25.810 Atherosclerosis of coronary artery bypass graft(s) without angina pectoris; Z79.82 Long term (current) use of aspirin; Z79.899 Other long term (current) drug therapy; Z91.14 Patient's other noncompliance with medication regimen; Z95.1 Presence of aortocoronary bypass graft
CPT/HCPCS: 36415; 71045; 71275; 76705; 78452; 80053; 80074; 80306; 82550; 83690; 83735; 83880; 84443; 84484; 85025; 85379; 93005; 93017; 93306; 94640; 94760; 96361; 96372; 96375; A9500; G0378; J2785; J3411; J3475; J3490; J7620; Q0162; Q9967

== ENCOUNTER 2020-05-30 09:49 | Inpatient (IN) | payer OTHER ==
[2020-05-30] MEDS ORDERED: Acetaminophen 500 MG TAB ONE (10:43)
[2020-05-30] MEDS ORDERED: Cefepime 2 GM VIAL ONE (10:43)
[2020-05-30 10:51] LABS: INR-International Normal Ratio 1.1; PTT 33.6 sec (22.9-36.1); Prothrombin Time 14.2 sec (12.0-14.7)
[2020-05-30 11:09] LABS: Hemoglobin 14.4 g/dL (14.0-18.0); Mean Corpuscular HGB CONC 32.3 g/dL (32.0-36.0); Mean Corpuscular Hemoglobin 31.9 pg (27.0-31.0); Mean Corpuscular Volume 98.7 fL (78.0-98.0); Mean Platelet Volume 8.7 fL (7.4-10.4); Platelet Count 152 thou/uL (130-400); RBC Distribution Width 11.5 % (11.5-14.5); Red Blood Cell (RBC) Count 4.51 mill/uL (4.70-6.10); White Blood Cell (WBC) Count 13.2 thou/uL (4.8-10.8)
[2020-05-30] MEDS ORDERED: Iopamidol-370 76% 500 ML 1 ML ONE (11:17)
[2020-05-30 11:23] LABS: Eosinophils 1 % (0-10); Lymphocytes 17 % (21-51); MDiff Complete? YES; Monocytes 11 % (0-10); Neutrophil 67 % (42-75); RBC Morphology Normal; Reactive Lymphocytes 4 % (0-10)
[2020-05-30 11:41] LABS: ALT (SGPT) 7 U/L (8-55); AST (SGOT) 30 U/L (5-34); Albumin 4.1 g/dL (3.4-4.8); Alkaline Phosphatase 55 U/L (40-110); Anion Gap 14 mmol/L (10-20); BUN (Urea Nitrogen) 8 mg/dL (8.4-25.7); Bilirubin, Total 1.4 mg/dL (0.2-1.2); Calc. Creatinine Clearance 0 mL/min (70-130); Calcium 9.4 mg/dL (7.8-10.44); Carbon Dioxide 25 mmol/L (23-31); Chloride 103 mmol/L (98-107); Globulin 4.3 g/dL (2.4-3.5); Glucose 113 mg/dL (80-115); Potassium 4.7 mmol/L (3.5-5.1); Protein, Total 8.4 g/dL (5.8-8.1); Sodium 137 mmol/L (136-145)
[2020-05-30] MEDS ORDERED: Vancomycin 1.5 GRAM/300 ML BAG 1.5 GM in Premix Bag 1 BAG IVPB SCH (12:00)
[2020-05-30 12:55] LABS: Bacteria/HPF None Seen HPF (None Seen); Bilirubin Negative (Negative); Blood, Urine Negative (Negative); Clarity Clear (Clear); Glucose, Urine (Dipstick) Normal (Negative); Ketone, Urine Negative (Negative); Leukocyte Negative Leu/uL (Negative); Nitrite Negative (Negative); Protein, Urine (Dipstick) 30 mg/dL (Neg-Trace); RBC/HPF 0-3 HPF (0-3); Specific Gravity, Urine 1.026 (1.002-1.036); Squamous Epithelial 0-3 HPF (0-3); Urobilinogen Normal mg/dL (Less than 2); WBC/HPF 0-3 HPF (0-3); pH, Urine 5.5 (5.0-9.0)
[2020-05-30 14:51] LABS: CRP (Inflammatory) 13.48 mg/dL (= or < 0.5)
[2020-05-30] MEDS ORDERED: HumaLOG 300 UNITS/3 ML VIAL SC PRN ×2 (15:59)
[2020-05-30] MEDS ORDERED: Dextrose 5% in Water 1,000 ML IV PRN (15:59)
[2020-05-30] MEDS ORDERED: Dextrose 50% Abboject 50 ML SYRINGE SLOW IVP PRN (15:59)
[2020-05-30 16:09] LABS: SARS-CoV-2 PCR by NAA Not Detected (NotDetected)
[2020-05-30] MEDS ORDERED: Ibuprofen 600 MG TAB PO PRN (17:36)
[2020-05-30 22:31] VITALS: BMI 24.2
[2020-05-30] MEDS: Sodium Chloride 0.9% 1,000 ML IV SCH (22:33)
[2020-05-30] MEDS: Morphine 4 MG/ML VIAL SLOW IVP PRN (22:33)
[2020-05-30] MEDS: Cefepime 2 GM in Sodium Chloride 0.9% 100 ML IVPB SCH (23:05)
[2020-05-31] MEDS: Vancomycin 1 GM in Premix Bag 1 BAG IVPB SCH ×2 (00:31→13:16)
[2020-05-31] MEDS: Morphine 4 MG/ML VIAL SLOW IVP PRN ×2 (00:34→18:00)
[2020-05-31] MEDS: Sodium Chloride 0.9% 1,000 ML IV SCH ×2 (03:03→13:16)
[2020-05-31 05:23] LABS: Hemoglobin A1c 5.3 % (4.0-6.0)
[2020-05-31 05:29] LABS: Hemoglobin 13.6 g/dL (14.0-18.0); Mean Corpuscular HGB CONC 31.6 g/dL (32.0-36.0); Mean Corpuscular Hemoglobin 31.1 pg (27.0-31.0); Mean Corpuscular Volume 98.5 fL (78.0-98.0); Mean Platelet Volume 8.2 fL (7.4-10.4); Platelet Count 150 thou/uL (130-400); RBC Distribution Width 11.3 % (11.5-14.5); Red Blood Cell (RBC) Count 4.38 mill/uL (4.70-6.10); White Blood Cell (WBC) Count 12.4 thou/uL (4.8-10.8)
[2020-05-31 05:38] LABS: ALT (SGPT) Less than 7 U/L (8-55); AST (SGOT) 18 U/L (5-34); Albumin 3.5 g/dL (3.4-4.8); Alkaline Phosphatase 45 U/L (40-110); Anion Gap 15 mmol/L (10-20); BUN (Urea Nitrogen) 10 mg/dL (8.4-25.7); Bilirubin, Total 1.3 mg/dL (0.2-1.2); CK (CPK) 814 U/L (30-200); Calc. Creatinine Clearance 90 mL/min (70-130); Calcium 8.9 mg/dL (7.8-10.44); Carbon Dioxide 23 mmol/L (23-31); Chloride 106 mmol/L (98-107); Globulin 3.4 g/dL (2.4-3.5); Glucose 100 mg/dL (80-115); Magnesium 1.7 mg/dL (1.6-2.6); Protein, Total 6.9 g/dL (5.8-8.1); Sodium 140 mmol/L (136-145)
[2020-05-31 05:52] LABS: Band 1 % (5-11); Lymphocytes 15 % (21-51); MDiff Complete? YES; Monocytes 10 % (0-10); Neutrophil 72 % (42-75); Platelet Morphology Comment Appears Adequate; RBC Morphology Normal; Reactive Lymphocytes 2 % (0-10)
[2020-05-31] MEDS: Acetaminophen 500 MG TAB PO PRN ×2 (06:37→21:07)
[2020-05-31] MEDS: Cefepime 2 GM in Sodium Chloride 0.9% 100 ML IVPB SCH ×2 (09:58→21:08)
[2020-05-31] MEDS ORDERED: Magnevist 469MG/ML 20 ML VIAL ONE (10:41)
[2020-05-31] MEDS ORDERED: Methocarbamol 500 MG TAB PO SCH (19:45)
[2020-05-31 23:50] LABS: Vancomycin, Trough 7.2 ug/mL
[2020-06-01] MEDS: Vancomycin 1 GM in Premix Bag 1 BAG IVPB SCH (00:13)
[2020-06-01] MEDS: Sodium Chloride 0.9% 1,000 ML IV SCH ×3 (00:14→21:04)
[2020-06-01] MEDS ORDERED: Vancomycin 1 GM in Premix Bag 1 BAG IVPB SCH (01:45)
[2020-06-01] MEDS ORDERED: Vancomycin HCl 500 MG in Sodium Chloride 0.9% 100 ML IVPB SCH (02:00)
[2020-06-01 05:18] LABS: #Basophils 0.1 thou/uL (0.0-0.2); #Eosinphils 0.1 thou/uL (0.0-0.7); #Lymphocytes 1.4 thou/uL (1.20-3.40); #Monocytes 1.6 thou/uL (0.11-0.59); %Basophils 0.5 % (0.0-1.0); %Eosinophils 0.5 % (0.0-10.0); %Monocytes 14.2 % (0.0-10.0); %Neutrophils 71.9 % (42.0-75.0); Hemoglobin 12.7 g/dL (14.0-18.0); Mean Corpuscular HGB CONC 32.8 g/dL (32.0-36.0); Mean Corpuscular Volume 97.4 fL (78.0-98.0); Mean Platelet Volume 7.8 fL (7.4-10.4); Platelet Count 169 thou/uL (130-400); RBC Distribution Width 11.1 % (11.5-14.5); Red Blood Cell (RBC) Count 3.97 mill/uL (4.70-6.10); White Blood Cell (WBC) Count 11.1 thou/uL (4.8-10.8)
[2020-06-01 05:41] LABS: Anion Gap 13 mmol/L (10-20); BUN (Urea Nitrogen) 9 mg/dL (8.4-25.7); Calc. Creatinine Clearance 107 mL/min (70-130); Calcium 8.7 mg/dL (7.8-10.44); Carbon Dioxide 24 mmol/L (23-31); Chloride 104 mmol/L (98-107); Glucose 104 mg/dL (80-115); Potassium 3.8 mmol/L (3.5-5.1); Sodium 137 mmol/L (136-145)
[2020-06-01] MEDS: Morphine 4 MG/ML VIAL SLOW IVP PRN ×4 (05:45→23:08)
[2020-06-01] MEDS ORDERED: Ondansetron PF 4 MG/2 ML Vial ONE (09:52)
[2020-06-01] MEDS ORDERED: PROPOFOL 200 MG/20 ML VIAL ONE (09:52)
[2020-06-01] MEDS ORDERED: Lidocaine 1% PF 5 ML VIAL ONE (09:52)
[2020-06-01] MEDS: Cefepime 2 GM in Sodium Chloride 0.9% 100 ML IVPB SCH ×2 (09:54→21:02)
[2020-06-01] MEDS ORDERED: Vancomycin 1.5 GRAM/300 ML BAG ONE ×2 (13:49→14:55)
[2020-06-01] MEDS: Vancomycin 1.5 GRAM/300 ML BAG 1.5 GM in Premix Bag 1 BAG IVPB SCH (13:55)
[2020-06-01] MEDS ORDERED: Fentanyl 100 MCG/2 ML VIAL ONE (14:48)
[2020-06-01] MEDS: traMADol HCl 50 MG TAB PO PRN (22:27)
[2020-06-02] MEDS: Vancomycin 1.5 GRAM/300 ML BAG 1.5 GM in Premix Bag 1 BAG IVPB SCH ×2 (02:10→15:06)
[2020-06-02] MEDS: Morphine 4 MG/ML VIAL SLOW IVP PRN ×5 (02:10→21:03)
[2020-06-02 04:26] LABS: Hemoglobin 12.4 g/dL (14.0-18.0); Mean Corpuscular HGB CONC 33.6 g/dL (32.0-36.0); Mean Corpuscular Hemoglobin 32.5 pg (27.0-31.0); Mean Corpuscular Volume 96.5 fL (78.0-98.0); Mean Platelet Volume 8.7 fL (7.4-10.4); Platelet Count 176 thou/uL (130-400); RBC Distribution Width 11.2 % (11.5-14.5); Red Blood Cell (RBC) Count 3.81 mill/uL (4.70-6.10); White Blood Cell (WBC) Count 10.6 thou/uL (4.8-10.8)
[2020-06-02 04:27] LABS: Band 1 % (5-11); Hypochromia SLIGHT = 6-15 cells (100X) (0-5/hpf); Lymphocytes 16 % (21-51); MDiff Complete? YES; Monocytes 17 % (0-10); Neutrophil 66 % (42-75); Platelet Morphology Comment Appears Adequate
[2020-06-02] MEDS: traMADol HCl 50 MG TAB PO PRN ×2 (04:30→18:08)
[2020-06-02] MEDS: Sodium Chloride 0.9% 1,000 ML IV SCH ×3 (04:35→17:40)
[2020-06-02 04:46] LABS: Anion Gap 13 mmol/L (10-20); BUN (Urea Nitrogen) 8 mg/dL (8.4-25.7); Calc. Creatinine Clearance 104 mL/min (70-130); Calcium 8.5 mg/dL (7.8-10.44); Carbon Dioxide 24 mmol/L (23-31); Chloride 104 mmol/L (98-107); Glucose 108 mg/dL (80-115); Potassium 4.7 mmol/L (3.5-5.1); Sodium 136 mmol/L (136-145)
[2020-06-02] MEDS ORDERED: Iopamidol 370 76% 100 ML VIAL ONE (10:19)
[2020-06-02] MEDS: Cefepime 2 GM in Sodium Chloride 0.9% 100 ML IVPB SCH ×2 (10:41→21:00)
[2020-06-02] MEDS ORDERED: Lidocaine 1% (PF) 30 ML VIAL ONE (13:11)
[2020-06-02 13:44] LABS: Vancomycin, Trough 10.7 ug/mL
[2020-06-02] MEDS ORDERED: Midazolam HCl 2 mg/2 ml Vial ONE (14:09)
[2020-06-02] MEDS ORDERED: Fentanyl 100 MCG/2 ML VIAL ONE (14:09)
[2020-06-02] MEDS ORDERED: Heparin 10,000 UNITS/ 10 ML VIAL ONE (14:29)
[2020-06-02] MEDS ORDERED: VANCOMYCIN 1.75 GM/350 ML BAG 1.75 GM in Premix Bag 1 BAG IVPB SCH (15:00)
[2020-06-02] MEDS ORDERED: Morphine 4 MG/ML VIAL ONE (16:19)
[2020-06-02] MEDS: VANCOMYCIN 1.75 GM/350 ML BAG 1.75 GM in Premix Bag 1 BAG IVPB SCH (18:06)
[2020-06-02] MEDS: Acetaminophen 500 MG TAB PO PRN (19:14)
[2020-06-03] MEDS: Morphine 4 MG/ML VIAL SLOW IVP PRN ×4 (00:01→21:03)
[2020-06-03] MEDS: traMADol HCl 50 MG TAB PO PRN (05:40)
[2020-06-03] MEDS: VANCOMYCIN 1.75 GM/350 ML BAG 1.75 GM in Premix Bag 1 BAG IVPB SCH ×2 (05:40→18:33)
[2020-06-03] MEDS: Cefepime 2 GM in Sodium Chloride 0.9% 100 ML IVPB SCH ×2 (09:22→21:03)
[2020-06-03] MEDS ORDERED: traZODone HCl 50 MG TAB PO PRN (15:49)
[2020-06-03] MEDS: Sodium Chloride 0.9% 1,000 ML IV SCH ×2 (16:39→21:04)
[2020-06-03] MEDS: Mometasone 100 MCG/Formoterol 5 MCG 120 PUFF INHALER INH SCH (19:11)
[2020-06-03] MEDS: Aripiprazole 15 MG TAB PO SCH (21:04)
[2020-06-04] MEDS: Acetaminophen 500 MG TAB PO PRN ×2 (01:55→23:39)
[2020-06-04 04:40] LABS: Anion Gap 14 mmol/L (10-20); BUN (Urea Nitrogen) 9 mg/dL (8.4-25.7); Calc. Creatinine Clearance 114 mL/min (70-130); Carbon Dioxide 23 mmol/L (23-31); Chloride 104 mmol/L (98-107); Glucose 122 mg/dL (80-115); Potassium 3.7 mmol/L (3.5-5.1); Sodium 137 mmol/L (136-145)
[2020-06-04 05:20] LABS: Vancomycin, Trough 15.1 ug/mL
[2020-06-04 05:24] LABS: Hemoglobin 12.5 g/dL (14.0-18.0); Mean Corpuscular HGB CONC 34.3 g/dL (32.0-36.0); Mean Corpuscular Hemoglobin 32.7 pg (27.0-31.0); Mean Corpuscular Volume 95.3 fL (78.0-98.0); Mean Platelet Volume 7.5 fL (7.4-10.4); Platelet Count 245 thou/uL (130-400); RBC Distribution Width 10.9 % (11.5-14.5); Red Blood Cell (RBC) Count 3.82 mill/uL (4.70-6.10); White Blood Cell (WBC) Count 9.4 thou/uL (4.8-10.8)
[2020-06-04 05:25] LABS: Band 4 % (5-11); Eosinophils 1 % (0-10); Lymphocytes 17 % (21-51); MDiff Complete? YES; Monocytes 8 % (0-10); Neutrophil 70 % (42-75)
[2020-06-04] MEDS: Sodium Chloride 0.9% 1,000 ML IV SCH ×2 (05:49→11:12)
[2020-06-04] MEDS: VANCOMYCIN 1.75 GM/350 ML BAG 1.75 GM in Premix Bag 1 BAG IVPB SCH ×2 (05:58→17:28)
[2020-06-04] MEDS: Mometasone 100 MCG/Formoterol 5 MCG 120 PUFF INHALER INH SCH ×2 (06:52→19:00)
[2020-06-04] MEDS: Morphine 4 MG/ML VIAL SLOW IVP PRN (08:10)
[2020-06-04] MEDS: Cefepime 2 GM in Sodium Chloride 0.9% 100 ML IVPB SCH ×2 (08:53→20:00)
[2020-06-04] MEDS: Multivitamin W/ Minerals 1 TAB PO SCH (08:54)
[2020-06-04] MEDS: Thiamine 100 MG TAB PO SCH (08:54)
[2020-06-04] MEDS: Citalopram 20 MG TAB PO SCH (08:54)
[2020-06-04] MEDS: Aspirin 81 mg Enteric Coated Tablet PO SCH (08:54)
[2020-06-04] MEDS ORDERED: FLUoxetine HCl 20 MG CAP PO SCH (09:00)
[2020-06-04] MEDS ORDERED: Amlodipine 5 MG TAB PO SCH (10:45)
[2020-06-04] MEDS ORDERED: Polyethylene Glycol 3350 17 GM Packet PO SCH (12:30)
[2020-06-04] MEDS: Senokot S 8.6-50 MG TAB PO SCH (22:14)
[2020-06-04] MEDS: Aripiprazole 15 MG TAB PO SCH (22:14)
[2020-06-05] MEDS: VANCOMYCIN 1.75 GM/350 ML BAG 1.75 GM in Premix Bag 1 BAG IVPB SCH ×2 (05:04→17:57)
[2020-06-05] MEDS: Morphine 4 MG/ML VIAL SLOW IVP PRN ×2 (05:16→20:47)
[2020-06-05 06:58] LABS: Hemoglobin 12.2 g/dL (14.0-18.0); Mean Corpuscular HGB CONC 32.6 g/dL (32.0-36.0); Mean Corpuscular Hemoglobin 31.2 pg (27.0-31.0); Mean Corpuscular Volume 95.8 fL (78.0-98.0); Mean Platelet Volume 7.6 fL (7.4-10.4); Platelet Count 312 thou/uL (130-400); RBC Distribution Width 11.1 % (11.5-14.5)
[2020-06-05 07:22] LABS: Anion Gap 15 mmol/L (10-20); BUN (Urea Nitrogen) 8 mg/dL (8.4-25.7); CK (CPK) 417 U/L (30-200); Calc. Creatinine Clearance 124 mL/min (70-130); Calcium 9.2 mg/dL (7.8-10.44); Carbon Dioxide 22 mmol/L (23-31); Chloride 105 mmol/L (98-107); Glucose 95 mg/dL (80-115); Magnesium 2.2 mg/dL (1.6-2.6); Sodium 138 mmol/L (136-145)
[2020-06-05] MEDS: Mometasone 100 MCG/Formoterol 5 MCG 120 PUFF INHALER INH SCH ×2 (07:30→19:24)
[2020-06-05 08:22] LABS: Band 3 % (5-11); Eosinophils 1 % (0-10); Lymphocytes 15 % (21-51); MDiff Complete? YES; Monocytes 15 % (0-10); Neutrophil 65 % (42-75)
[2020-06-05] MEDS: Aspirin 81 mg Enteric Coated Tablet PO SCH (08:27)
[2020-06-05] MEDS: Amlodipine 5 MG TAB PO SCH (08:28)
[2020-06-05] MEDS: Cefepime 2 GM in Sodium Chloride 0.9% 100 ML IVPB SCH ×2 (08:28→20:45)
[2020-06-05] MEDS: Multivitamin W/ Minerals 1 TAB PO SCH (08:29)
[2020-06-05] MEDS: Citalopram 20 MG TAB PO SCH (08:29)
[2020-06-05] MEDS: Thiamine 100 MG TAB PO SCH (08:30)
[2020-06-05] MEDS: Senokot S 8.6-50 MG TAB PO SCH ×2 (08:30→20:45)
[2020-06-05] MEDS: Polyethylene Glycol 3350 17 GM Packet PO SCH (08:30)
[2020-06-05] MEDS: Sodium Chloride 0.9% 1,000 ML IV SCH (12:00)
[2020-06-05] MEDS: Aripiprazole 15 MG TAB PO SCH (23:26)
[2020-06-06] MEDS: VANCOMYCIN 1.75 GM/350 ML BAG 1.75 GM in Premix Bag 1 BAG IVPB SCH (05:31)
[2020-06-06] MEDS: Morphine 4 MG/ML VIAL SLOW IVP PRN (05:32)
[2020-06-06 07:50] LABS: #Basophils 0.1 thou/uL (0.0-0.2); #Eosinphils 0.2 thou/uL (0.0-0.7); #Lymphocytes 1.9 thou/uL (1.20-3.40); #Monocytes 1.4 thou/uL (0.11-0.59); #Neutrophils 7.3 thou/uL (1.40-6.50); %Basophils 1.3 % (0.0-1.0); %Eosinophils 1.5 % (0.0-10.0); %Lymphocytes 17.7 % (21.0-51.0); %Monocytes 12.5 % (0.0-10.0); %Neutrophils 67.2 % (42.0-75.0); Hemoglobin 12.1 g/dL (14.0-18.0); Mean Corpuscular HGB CONC 32.7 g/dL (32.0-36.0); Mean Corpuscular Hemoglobin 31.3 pg (27.0-31.0); Mean Corpuscular Volume 95.6 fL (78.0-98.0); Mean Platelet Volume 7.1 fL (7.4-10.4); Platelet Count 380 thou/uL (130-400); Red Blood Cell (RBC) Count 3.87 mill/uL (4.70-6.10); White Blood Cell (WBC) Count 10.9 thou/uL (4.8-10.8)
[2020-06-06] MEDS: Mometasone 100 MCG/Formoterol 5 MCG 120 PUFF INHALER INH SCH ×2 (08:19→19:46)
[2020-06-06] MEDS: Aspirin 81 mg Enteric Coated Tablet PO SCH (09:14)
[2020-06-06] MEDS: Polyethylene Glycol 3350 17 GM Packet PO SCH (09:14)
[2020-06-06] MEDS: Multivitamin W/ Minerals 1 TAB PO SCH (09:14)
[2020-06-06] MEDS: Senokot S 8.6-50 MG TAB PO SCH ×2 (09:14→20:29)
[2020-06-06] MEDS: Thiamine 100 MG TAB PO SCH (09:14)
[2020-06-06] MEDS: Amlodipine 5 MG TAB PO SCH (09:14)
[2020-06-06] MEDS: Citalopram 20 MG TAB PO SCH (09:16)
[2020-06-06] MEDS: Cefepime 2 GM in Sodium Chloride 0.9% 100 ML IVPB SCH (09:17)
[2020-06-06] MEDS: Sodium Chloride 0.9% 1,000 ML IV SCH (14:48)
[2020-06-06] MEDS: Aripiprazole 15 MG TAB PO SCH (20:29)
[2020-06-06] MEDS: traMADol HCl 50 MG TAB PO PRN (20:29)
[2020-06-07] MEDS: Mometasone 100 MCG/Formoterol 5 MCG 120 PUFF INHALER INH SCH ×2 (07:49→20:09)
[2020-06-07] MEDS: Senokot S 8.6-50 MG TAB PO SCH ×2 (08:45→20:07)
[2020-06-07] MEDS: Polyethylene Glycol 3350 17 GM Packet PO SCH (08:45)
[2020-06-07] MEDS: Thiamine 100 MG TAB PO SCH (08:46)
[2020-06-07] MEDS: Amlodipine 5 MG TAB PO SCH (08:46)
[2020-06-07] MEDS: Aspirin 81 mg Enteric Coated Tablet PO SCH (08:46)
[2020-06-07] MEDS: Multivitamin W/ Minerals 1 TAB PO SCH (08:46)
[2020-06-07] MEDS: Citalopram 20 MG TAB PO SCH (08:46)
[2020-06-07] MEDS: traMADol HCl 50 MG TAB PO PRN (08:52)
[2020-06-07] MEDS: Aripiprazole 15 MG TAB PO SCH (20:07)
[2020-06-08] MEDS: Mometasone 100 MCG/Formoterol 5 MCG 120 PUFF INHALER INH SCH ×2 (08:13→21:45)
[2020-06-08] MEDS: Thiamine 100 MG TAB PO SCH (08:45)
[2020-06-08] MEDS: Multivitamin W/ Minerals 1 TAB PO SCH (08:45)
[2020-06-08] MEDS: Citalopram 20 MG TAB PO SCH (08:46)
[2020-06-08] MEDS: Aspirin 81 mg Enteric Coated Tablet PO SCH (08:46)
[2020-06-08] MEDS: Amlodipine 5 MG TAB PO SCH (08:46)
[2020-06-08] MEDS: Polyethylene Glycol 3350 17 GM Packet PO SCH (08:47)
[2020-06-08] MEDS: Senokot S 8.6-50 MG TAB PO SCH ×2 (08:47→20:35)
[2020-06-08] MEDS: traMADol HCl 50 MG TAB PO PRN ×2 (08:56→20:35)
[2020-06-08] MEDS: Aripiprazole 15 MG TAB PO SCH (20:35)
[2020-06-09] MEDS: Mometasone 100 MCG/Formoterol 5 MCG 120 PUFF INHALER INH SCH ×2 (07:46→19:28)
[2020-06-09 08:31] LABS: #Eosinphils 0.2 thou/uL (0.0-0.7); #Lymphocytes 2.4 thou/uL (1.20-3.40); #Monocytes 1.2 thou/uL (0.11-0.59); #Neutrophils 6.1 thou/uL (1.40-6.50); %Basophils 0.4 % (0.0-1.0); %Eosinophils 1.7 % (0.0-10.0); %Lymphocytes 24.6 % (21.0-51.0); %Monocytes 11.9 % (0.0-10.0); %Neutrophils 61.4 % (42.0-75.0); Hemoglobin 12.9 g/dL (14.0-18.0); Mean Corpuscular HGB CONC 33.7 g/dL (32.0-36.0); Mean Corpuscular Hemoglobin 33.1 pg (27.0-31.0); Mean Platelet Volume 7.1 fL (7.4-10.4); Platelet Count 507 thou/uL (130-400); RBC Distribution Width 11.1 % (11.5-14.5); White Blood Cell (WBC) Count 9.9 thou/uL (4.8-10.8)
[2020-06-09] MEDS: Citalopram 20 MG TAB PO SCH (09:06)
[2020-06-09] MEDS: Aspirin 81 mg Enteric Coated Tablet PO SCH (09:06)
[2020-06-09] MEDS: Multivitamin W/ Minerals 1 TAB PO SCH (09:06)
[2020-06-09] MEDS: Thiamine 100 MG TAB PO SCH (09:06)
[2020-06-09] MEDS: Senokot S 8.6-50 MG TAB PO SCH ×2 (09:07→20:40)
[2020-06-09] MEDS: Amlodipine 5 MG TAB PO SCH (09:07)
[2020-06-09] MEDS: Polyethylene Glycol 3350 17 GM Packet PO SCH ×2 (09:07→09:12)
[2020-06-09] MEDS: Aripiprazole 15 MG TAB PO SCH (20:40)
[2020-06-09] MEDS: Acetaminophen 500 MG TAB PO PRN (22:39)
[2020-06-10 07:44] VITALS: BP 105/70; TEMP 98
[2020-06-10] MEDS: Mometasone 100 MCG/Formoterol 5 MCG 120 PUFF INHALER INH SCH ×2 (07:57→19:46)
[2020-06-10] MEDS: Citalopram 20 MG TAB PO SCH (08:21)
[2020-06-10] MEDS: Aspirin 81 mg Enteric Coated Tablet PO SCH (08:21)
[2020-06-10] MEDS: Amlodipine 5 MG TAB PO SCH ×2 (08:21→08:27)
[2020-06-10] MEDS: Multivitamin W/ Minerals 1 TAB PO SCH (08:21)
[2020-06-10] MEDS: Thiamine 100 MG TAB PO SCH (08:21)
[2020-06-10] MEDS: Acetaminophen 500 MG TAB PO PRN ×3 (08:23→20:59)
[2020-06-10] MEDS: Senokot S 8.6-50 MG TAB PO SCH ×2 (08:33→21:01)
[2020-06-10] MEDS: Polyethylene Glycol 3350 17 GM Packet PO SCH (08:33)
[2020-06-10] MEDS: Aripiprazole 15 MG TAB PO SCH (20:59)
== END 2020-06-10 21:48 | DRG 854 ==
LOC: ERS 09:49 → ONC 14:08
PROVIDERS: ADMIT Internal Medicine; ATTEND Internal Medicine
PROC: 0Y6N0Z9 Detachment at Left Foot, Partial 1st Ray, Open Approach (ICD-10-PCS; principal; 2020-06-01)
PROC: 0Y6N0ZB Detachment at Left Foot, Partial 2nd Ray, Open Approach (ICD-10-PCS; 2020-06-01)
PROC: 047Q3ZZ Dilation of Left Anterior Tibial Artery, Percutaneous Approach (ICD-10-PCS; 2020-06-02)
PROC: 047N3ZZ Dilation of Left Popliteal Artery, Percutaneous Approach (ICD-10-PCS; 2020-06-02)
PROC: B41D1ZZ Fluoroscopy of Aorta and Bilateral Lower Extremity Arteries using Low Osmolar Contrast (ICD-10-PCS; 2020-06-02)
DX: A41.9 Sepsis, unspecified organism (principal); E11.52 Type 2 diabetes mellitus with diabetic peripheral angiopathy with gangrene; J44.1 Chronic obstructive pulmonary disease with (acute) exacerbation; M62.82 Rhabdomyolysis; L03.116 Cellulitis of left lower limb; I96 Gangrene, not elsewhere classified; Z20.822 Contact with and (suspected) exposure to COVID-19; E11.628 Type 2 diabetes mellitus with other skin complications; I25.10 Atherosclerotic heart disease of native coronary artery without angina pectoris; E78.5 Hyperlipidemia, unspecified; I10 Essential (primary) hypertension; F41.9 Anxiety disorder, unspecified; F31.9 Bipolar disorder, unspecified; F20.9 Schizophrenia, unspecified; F17.210 Nicotine dependence, cigarettes, uncomplicated; E11.65 Type 2 diabetes mellitus with hyperglycemia; Z95.1 Presence of aortocoronary bypass graft; Z89.422 Acquired absence of other left toe(s); Z79.899 Other long term (current) drug therapy; Z79.51 Long term (current) use of inhaled steroids
CPT/HCPCS: 36415; 36416; 37228; 71045; 71275; 76942; 80048; 80053; 80202; 81003; 81015; 82550; 83036; 83605; 83735; 83880; 84484; 85025; 85347; 85379; 85610; 85730; 86140; 87040; 87070; 87086; 87205; 87206; 87635; 88305; 88311; 93005; 94760; 96365; 96366; 96367; 99152; 99153; A9579; J0692; J1644; J2001; J2250; J2270; J2405; J2704; J3010; J3370; J3490; Q9967; U0003; U0005

== ENCOUNTER 2020-07-03 08:57 | Emergency (ER) | payer OTHER ==
[2020-07-03 09:56] LABS: #Basophils 0.1 thou/uL (0.0-0.2); #Eosinphils 0.2 thou/uL (0.0-0.7); #Lymphocytes 2.3 thou/uL (1.20-3.40); #Monocytes 0.8 thou/uL (0.11-0.59); #Neutrophils 5.1 thou/uL (1.40-6.50); %Basophils 0.9 % (0.0-1.0); %Lymphocytes 27.3 % (21.0-51.0); %Monocytes 9.6 % (0.0-10.0); %Neutrophils 60.4 % (42.0-75.0); Hemoglobin 13.8 g/dL (14.0-18.0); Mean Corpuscular HGB CONC 33.2 g/dL (32.0-36.0); Mean Corpuscular Hemoglobin 32.4 pg (27.0-31.0); Mean Corpuscular Volume 97.4 fL (78.0-98.0); Platelet Count 174 thou/uL (130-400); RBC Distribution Width 12.8 % (11.5-14.5); Red Blood Cell (RBC) Count 4.27 mill/uL (4.70-6.10); White Blood Cell (WBC) Count 8.5 thou/uL (4.8-10.8)
[2020-07-03 10:13] LABS: ALT (SGPT) 10 U/L (8-55); AST (SGOT) 20 U/L (5-34); Albumin 4.2 g/dL (3.4-4.8); Alkaline Phosphatase 73 U/L (40-110); Anion Gap 13 mmol/L (10-20); BUN (Urea Nitrogen) 13 mg/dL (8.4-25.7); Bilirubin, Total 0.3 mg/dL (0.2-1.2); Calc. Creatinine Clearance 0 mL/min (70-130); Calcium 9.3 mg/dL (7.8-10.44); Carbon Dioxide 30 mmol/L (23-31); Chloride 104 mmol/L (98-107); Globulin 3.9 g/dL (2.4-3.5); Glucose 83 mg/dL (80-115); Protein, Total 8.1 g/dL (5.8-8.1); Sodium 143 mmol/L (136-145)
== END 2020-07-03 10:58 | disposition left against medical advice (07) ==
LOC: ERS 08:57
DX: I96 Gangrene, not elsewhere classified (principal); E78.5 Hyperlipidemia, unspecified; I10 Essential (primary) hypertension; J44.9 Chronic obstructive pulmonary disease, unspecified; F17.210 Nicotine dependence, cigarettes, uncomplicated; Z79.899 Other long term (current) drug therapy
CPT/HCPCS: 36415; 80053; 85025; 87040; 87070; 87077; 87149; 87186; 87205

== ENCOUNTER 2020-08-12 12:42 | Outpatient (CLI) | payer OTHER ==
[2020-08-12 14:55] LABS: #Eosinphils 0.1 10x3/uL (0.0-0.5); #Monocytes 1.1 10x3/uL (0.0-1.1); #Neutrophils 4.5 10x3/uL (1.5-8.4); %Basophils 0.6 % (0.0-2.0); %Eosinophils 0.7 % (0.0-6.0); %Lymphocytes 20.9 % (18.0-47.0); %Monocytes 14.7 % (0.0-10.0); %Neutrophils 62.7 % (40.0-75.0); Hemoglobin 14.6 g/dL (13.5-17.5); Mean Corpuscular HGB CONC 33.4 g/dL (32.0-36.0); Mean Corpuscular Hemoglobin 31.6 pg (27.0-33.0); Mean Corpuscular Volume 94.6 fl (81.2-95.1); Mean Platelet Volume 10.3 fl (7.4-10.4); Platelet Count 210 10x3/uL (150-450); RBC Distribution Width 13.4 % (11.5-14.5); Red Blood Cell (RBC) Count 4.62 10x6/uL (4.32-5.72); White Blood Cell (WBC) Count 7.1 10x3/uL (3.5-10.5)
[2020-08-12 15:00] LABS: Anion Gap 20 mmol/L (10-20); BUN (Urea Nitrogen) 6 mg/dL (8.4-25.7); Calc. Creatinine Clearance 0 mL/min (70-130); Calcium 9.6 mg/dL (7.8-10.44); Carbon Dioxide 21 mmol/L (23-31); Chloride 102 mmol/L (98-107); Glucose 93 mg/dL (80-115); Potassium 4.1 mmol/L (3.5-5.1); Sodium 139 mmol/L (136-145)
[2020-08-13 01:51] LABS: SARS-CoV-2 PCR by NAA Not Detected (NotDetected)
== END 2020-08-12 12:43 | disposition home or self-care (01) ==
LOC: LABBT 12:42
PROVIDERS: ATTEND Specialist
DX: Z01.818 Encounter for other preprocedural examination (principal); M86.9 Osteomyelitis, unspecified; L94 Other localized connective tissue disorders; I96 Gangrene, not elsewhere classified; S98.139A Complete traumatic amputation of one unspecified lesser toe, initial encounter; Z20.822 Contact with and (suspected) exposure to COVID-19
CPT/HCPCS: 80048; 85025; 87635; 93005; 93010; U0003; U0005

== ENCOUNTER 2020-08-17 06:02 | Day surgery (SDC) | payer OTHER ==
[2020-08-16 15:39] VITALS: BMI 20.9
[2020-08-17] MEDS ORDERED: Acetaminophen 500 MG TAB ONE (06:18)
[2020-08-17] MEDS ORDERED: Ketorolac Tromethamine 30 MG/ML VIAL ONE (06:18)
[2020-08-17] MEDS ORDERED: Fentanyl 100 MCG/2 ML VIAL ONE ×3 (06:39→08:54)
[2020-08-17] MEDS ORDERED: Albuterol Sulfate 1.25 MG/3 ML NEB ONE (07:06)
[2020-08-17] MEDS ORDERED: ePHEDrine Sulfate 50 MG/10 ML VIAL ONE (07:34)
[2020-08-17] MEDS ORDERED: Ondansetron PF 4 MG/2 ML Vial ONE (07:34)
[2020-08-17] MEDS ORDERED: PROPOFOL 200 MG/20 ML VIAL ONE (07:34)
[2020-08-17] MEDS ORDERED: Lidocaine 1% PF 5 ML VIAL ONE (07:34)
[2020-08-17] MEDS ORDERED: diphenhydrAMINE 50 MG/ML VIAL ONE (07:34)
[2020-08-17] MEDS ORDERED: HYDROcodone/Acetaminophen 5/325 mg Tablet ONE (09:55)
== END 2020-08-17 10:45 | disposition home or self-care (01) ==
LOC: SDC 06:02
PROVIDERS: ATTEND Specialist
PROC: 0Y6N0ZC Detachment at Left Foot, Partial 3rd Ray, Open Approach (ICD-10-PCS; principal; 2020-08-17)
PROC: 0Y6N0ZD Detachment at Left Foot, Partial 4th Ray, Open Approach (ICD-10-PCS; principal; 2020-08-17)
PROC: 0Y6N0ZF Detachment at Left Foot, Partial 5th Ray, Open Approach (ICD-10-PCS; principal; 2020-08-17)
DX: M86.8X7 Other osteomyelitis, ankle and foot (principal); I73.9 Peripheral vascular disease, unspecified; L94 Other localized connective tissue disorders; I11.9 Hypertensive heart disease without heart failure; E78.00 Pure hypercholesterolemia, unspecified; K21.9 Gastro-esophageal reflux disease without esophagitis; J44.9 Chronic obstructive pulmonary disease, unspecified; F17.210 Nicotine dependence, cigarettes, uncomplicated; F10.10 Alcohol abuse, uncomplicated; Z79.82 Long term (current) use of aspirin; Z79.899 Other long term (current) drug therapy; Z89.412 Acquired absence of left great toe; Z89.422 Acquired absence of other left toe(s); Z95.1 Presence of aortocoronary bypass graft
CPT/HCPCS: 88305; 88311; J0690; J1200; J1885; J2405; J2704; J3010

== ENCOUNTER 2020-08-22 16:23 | Inpatient (IN) | payer OTHER ==
[2020-08-22 18:02] VITALS: BMI 21.6
[2020-08-22 18:32] LABS: Anion Gap 18 mmol/L (10-20); BUN (Urea Nitrogen) 7 mg/dL (8.4-25.7); Calc. Creatinine Clearance 70 mL/min (70-130); Carbon Dioxide 21 mmol/L (23-31); Chloride 99 mmol/L (98-107); Glucose 106 mg/dL (80-115); Potassium 4.5 mmol/L (3.5-5.1); Sodium 133 mmol/L (136-145)
[2020-08-22 18:38] LABS: Band 4 % (5-11); Eosinophils 1 % (0-10); Hemoglobin 14.5 g/dL (14.0-18.0); Lymphocytes 16 % (21-51); MDiff Complete? YES; Mean Corpuscular Hemoglobin 32.5 pg (27.0-31.0); Mean Corpuscular Volume 98.7 fL (78.0-98.0); Mean Platelet Volume 7.5 fL (7.4-10.4); Monocytes 17 % (0-10); Neutrophil 62 % (42-75); Platelet Count 240 thou/uL (130-400); Platelet Morphology Comment Appears Adequate; RBC Distribution Width 12.3 % (11.5-14.5); RBC Morphology Normal; Red Blood Cell (RBC) Count 4.45 mill/uL (4.70-6.10); White Blood Cell (WBC) Count 9.6 thou/uL (4.8-10.8)
[2020-08-22] MEDS: Gabapentin 300 MG CAP PO SCH (19:58)
[2020-08-22] MEDS ORDERED: Nitroglycerin 0.4 MG TAB (25 Tab Bottle) SL PRN (22:06)
[2020-08-22] MEDS ORDERED: hydrALAZINE 20 MG/ML VIAL SLOW IVP PRN (22:06)
[2020-08-22] MEDS ORDERED: Zolpidem Tartrate 5 MG TAB PO PRN (22:07)
[2020-08-22] MEDS ORDERED: HumaLOG 300 UNITS/3 ML VIAL SC PRN (22:09)
[2020-08-22] MEDS ORDERED: Albuterol 200 PUFF (6.7GM INHALER) INH PRN (22:24)
[2020-08-22] MEDS: Nicotine 21 MG PATCH TD SCH (23:26)
[2020-08-22] MEDS: HYDROcodone/Acetaminophen 5/325 mg Tablet PO PRN (23:26)
[2020-08-23] MEDS: Cefepime 1 GM in Sodium Chloride 0.9% 100 ML IVPB SCH ×3 (02:11→23:56)
[2020-08-23 02:15] LABS: SARS-CoV-2 PCR by NAA Not Detected (NotDetected)
[2020-08-23] MEDS: HYDROcodone/Acetaminophen 5/325 mg Tablet PO PRN ×2 (05:43→17:33)
[2020-08-23 05:53] LABS: Hemoglobin 13.4 g/dL (14.0-18.0); Mean Corpuscular HGB CONC 30.8 g/dL (32.0-36.0); Mean Corpuscular Hemoglobin 30.4 pg (27.0-31.0); Mean Corpuscular Volume 98.7 fL (78.0-98.0); Mean Platelet Volume 7.6 fL (7.4-10.4); Platelet Count 305 thou/uL (130-400); RBC Distribution Width 12.2 % (11.5-14.5); Red Blood Cell (RBC) Count 4.41 mill/uL (4.70-6.10); White Blood Cell (WBC) Count 9.1 thou/uL (4.8-10.8)
[2020-08-23] MEDS ORDERED: Sodium Chloride 0.9% 1,000 ML IV SCH ×2 (06:00→14:44)
[2020-08-23 06:07] LABS: Anion Gap 13 mmol/L (10-20); BUN (Urea Nitrogen) 8 mg/dL (8.4-25.7); Calc. Creatinine Clearance 83 mL/min (70-130); Calcium 9.5 mg/dL (7.8-10.44); Carbon Dioxide 22 mmol/L (23-31); Chloride 103 mmol/L (98-107); Glucose 104 mg/dL (80-115); Potassium 4.1 mmol/L (3.5-5.1); Sodium 134 mmol/L (136-145)
[2020-08-23 06:19] LABS: Band 5 % (5-11); Lymphocytes 31 % (21-51); MDiff Complete? YES; Monocytes 18 % (0-10); Neutrophil 46 % (42-75)
[2020-08-23] MEDS: Mometasone 100 MCG/Formoterol 5 MCG 120 PUFF INHALER INH SCH ×2 (07:56→19:23)
[2020-08-23] MEDS ORDERED: Glimepiride 1 MG TAB PO SCH (08:00)
[2020-08-23] MEDS: Gabapentin 300 MG CAP PO SCH ×3 (08:17→19:47)
[2020-08-23] MEDS: Citalopram 20 MG TAB PO SCH (08:17)
[2020-08-23] MEDS: Morphine 4 MG/ML VIAL SLOW IVP PRN ×2 (08:26→16:08)
[2020-08-23] MEDS ORDERED: Fentanyl 100 MCG/2 ML VIAL ONE ×2 (13:05→14:57)
[2020-08-23] MEDS ORDERED: Lidocaine 1% PF 5 ML VIAL ONE (13:10)
[2020-08-23] MEDS ORDERED: ePHEDrine Sulfate 50 MG/10 ML VIAL ONE (13:10)
[2020-08-23] MEDS ORDERED: PROPOFOL 200 MG/20 ML VIAL ONE (13:10)
[2020-08-23] MEDS ORDERED: Ondansetron HCl/PF 4 MG/2 ML Vial IVP PRN (14:36)
[2020-08-23] MEDS ORDERED: Promethazine HCl 25 MG/ML VIAL SLOW IVP PRN (14:36)
[2020-08-23] MEDS ORDERED: Promethazine HCl 25 MG/ML VIAL IM PRN ×2 (14:36→18:30)
[2020-08-23] MEDS ORDERED: HYDROmorphone 0.5 MG/0.5 ML SYRINGE ONE (15:15)
[2020-08-23] MEDS ORDERED: Morphine 4 MG/ML VIAL SLOW IVP PRN (18:03)
[2020-08-23] MEDS ORDERED: HYDROcodone/Acetaminophen 10/325 mg Tablet PO PRN (18:03)
[2020-08-23] MEDS ORDERED: Zolpidem Tartrate 5 MG TAB PO PRN (18:30)
[2020-08-23] MEDS ORDERED: Ondansetron PF 4 MG/2 ML Vial IVP PRN (18:30)
[2020-08-23] MEDS ORDERED: Naloxone HCl 0.4 mg/ml Vial IV PRN (18:30)
[2020-08-23] MEDS ORDERED: diphenhydrAMINE 50 MG/ML VIAL IM/IV PRN (18:30)
[2020-08-23] MEDS ORDERED: diphenhydrAMINE 25 MG CAP PO PRN (18:30)
[2020-08-23] MEDS: Fentanyl CADD 100 ML IVPB SCH (18:43)
[2020-08-23] MEDS: Aripiprazole 15 MG TAB PO SCH (19:48)
[2020-08-23] MEDS: Melatonin 3 MG TAB PO SCH (19:48)
[2020-08-23] MEDS: Nicotine 21 MG PATCH TD SCH (23:56)
[2020-08-24 06:16] LABS: Band 7 % (5-11); Hemoglobin 11.9 g/dL (14.0-18.0); Hypochromia SLIGHT = 6-15 cells (100X) (0-5/hpf); Lymphocytes 5 % (21-51); MDiff Complete? YES; Mean Platelet Volume 7.2 fL (7.4-10.4); Monocytes 16 % (0-10); Neutrophil 72 % (42-75); Platelet Count 301 thou/uL (130-400); Platelet Morphology Comment Appears Adequate; Red Blood Cell (RBC) Count 3.72 mill/uL (4.70-6.10); White Blood Cell (WBC) Count 9.4 thou/uL (4.8-10.8)
[2020-08-24 06:52] LABS: Chloride 102 mmol/L (98-107); Potassium 4.2 mmol/L (3.5-5.1); Sodium 134 mmol/L (136-145)
[2020-08-24 06:53] LABS: Glucose 116 mg/dL (80-115)
[2020-08-24 06:54] LABS: Carbon Dioxide 22 mmol/L (23-31)
[2020-08-24 06:56] LABS: Calc. Creatinine Clearance 103 mL/min (70-130)
[2020-08-24 06:57] LABS: BUN (Urea Nitrogen) 6 mg/dL (8.4-25.7)
[2020-08-24] MEDS: Mometasone 100 MCG/Formoterol 5 MCG 120 PUFF INHALER INH SCH ×2 (08:09→18:05)
[2020-08-24 08:28] LABS: Anion Gap 14 mmol/L (10-20)
[2020-08-24] MEDS: Enoxaparin Sodium 40 MG/0.4 ML SYRINGE SC SCH (08:59)
[2020-08-24] MEDS: Citalopram 20 MG TAB PO SCH (09:00)
[2020-08-24] MEDS: Gabapentin 300 MG CAP PO SCH ×3 (09:00→20:34)
[2020-08-24] MEDS: Fentanyl CADD 100 ML IVPB SCH (16:46)
[2020-08-24] MEDS: Nicotine 21 MG PATCH TD SCH (20:34)
[2020-08-24] MEDS: Melatonin 3 MG TAB PO SCH (20:34)
[2020-08-24] MEDS: Aripiprazole 15 MG TAB PO SCH (20:38)
[2020-08-25 07:11] LABS: Anion Gap 12 mmol/L (10-20); BUN (Urea Nitrogen) 5 mg/dL (8.4-25.7); Calc. Creatinine Clearance 110 mL/min (70-130); Calcium 8.9 mg/dL (7.8-10.44); Carbon Dioxide 24 mmol/L (23-31); Chloride 100 mmol/L (98-107); Glucose 125 mg/dL (80-115); Potassium 3.8 mmol/L (3.5-5.1); Sodium 132 mmol/L (136-145)
[2020-08-25 08:01] LABS: Eosinophils 2 % (0-10); Hemoglobin 11.6 g/dL (14.0-18.0); Lymphocytes 13 % (21-51); MDiff Complete? YES; Mean Corpuscular HGB CONC 33.6 g/dL (32.0-36.0); Mean Corpuscular Hemoglobin 33.2 pg (27.0-31.0); Mean Corpuscular Volume 98.8 fL (78.0-98.0); Mean Platelet Volume 7.2 fL (7.4-10.4); Monocytes 29 % (0-10); Neutrophil 55 % (42-75); Platelet Count 297 thou/uL (130-400); Platelet Morphology Comment Appears Adequate; RBC Morphology Normal; Red Blood Cell (RBC) Count 3.48 mill/uL (4.70-6.10); White Blood Cell (WBC) Count 10.1 thou/uL (4.8-10.8)
[2020-08-25] MEDS: Gabapentin 300 MG CAP PO SCH ×3 (09:18→20:55)
[2020-08-25] MEDS: Citalopram 20 MG TAB PO SCH (09:18)
[2020-08-25] MEDS: Enoxaparin Sodium 40 MG/0.4 ML SYRINGE SC SCH (09:19)
[2020-08-25] MEDS: Mometasone 100 MCG/Formoterol 5 MCG 120 PUFF INHALER INH SCH ×2 (09:38→18:11)
[2020-08-25] MEDS ORDERED: HYDROcodone/Acetaminophen 10/325 mg Tablet PO PRN (11:34)
[2020-08-25] MEDS ORDERED: traMADol HCl 50 MG TAB PO PRN (11:36)
[2020-08-25] MEDS ORDERED: Morphine 4 MG/ML VIAL SLOW IVP PRN ×2 (11:37→12:05)
[2020-08-25] MEDS ORDERED: Bisacodyl 10 MG SUPP PR PRN (12:04)
[2020-08-25] MEDS: HYDROcodone/Acetaminophen 10/325 mg Tablet PO PRN ×2 (12:31→20:53)
[2020-08-25] MEDS ORDERED: Magnesium Citrate 300 ML BOT PO SCH (14:00)
[2020-08-25] MEDS: Senokot S 8.6-50 MG TAB PO SCH (20:54)
[2020-08-25] MEDS: Melatonin 3 MG TAB PO SCH (20:55)
[2020-08-25] MEDS: Nicotine 21 MG PATCH TD SCH (20:56)
[2020-08-25] MEDS: Aripiprazole 15 MG TAB PO SCH (20:56)
[2020-08-26] MEDS: HYDROcodone/Acetaminophen 10/325 mg Tablet PO PRN (04:44)
[2020-08-26 06:18] LABS: Anion Gap 11 mmol/L (10-20); BUN (Urea Nitrogen) 6 mg/dL (8.4-25.7); Calc. Creatinine Clearance 109 mL/min (70-130); Calcium 9.3 mg/dL (7.8-10.44); Carbon Dioxide 29 mmol/L (23-31); Chloride 100 mmol/L (98-107); Glucose 109 mg/dL (80-115); Potassium 4.4 mmol/L (3.5-5.1); Sodium 136 mmol/L (136-145)
[2020-08-26 06:27] LABS: Band 1 % (5-11); Hemoglobin 11.7 g/dL (14.0-18.0); Lymphocytes 13 % (21-51); MDiff Complete? YES; Mean Corpuscular HGB CONC 33.7 g/dL (32.0-36.0); Mean Corpuscular Hemoglobin 33.4 pg (27.0-31.0); Mean Corpuscular Volume 99.1 fL (78.0-98.0); Mean Platelet Volume 7.3 fL (7.4-10.4); Monocytes 18 % (0-10); Neutrophil 68 % (42-75); Platelet Count 337 thou/uL (130-400); RBC Distribution Width 11.9 % (11.5-14.5); White Blood Cell (WBC) Count 9.4 thou/uL (4.8-10.8)
[2020-08-26] MEDS: Mometasone 100 MCG/Formoterol 5 MCG 120 PUFF INHALER INH SCH ×2 (07:15→19:31)
[2020-08-26] MEDS: Citalopram 20 MG TAB PO SCH (09:40)
[2020-08-26] MEDS: Senokot S 8.6-50 MG TAB PO SCH ×2 (09:53→20:53)
[2020-08-26] MEDS: Gabapentin 300 MG CAP PO SCH ×3 (09:54→20:54)
[2020-08-26] MEDS: Enoxaparin Sodium 40 MG/0.4 ML SYRINGE SC SCH (09:55)
[2020-08-26] MEDS: Polyethylene Glycol 3350 17 GM Packet PER TUBE SCH (09:55)
[2020-08-26] MEDS: traMADol HCl 50 MG TAB PO PRN (19:12)
[2020-08-26] MEDS: Melatonin 3 MG TAB PO SCH (20:52)
[2020-08-26] MEDS: Aripiprazole 15 MG TAB PO SCH (20:56)
[2020-08-26] MEDS ORDERED: Atorvastatin Calcium 10 MG TAB PO SCH (21:00)
[2020-08-26] MEDS: Nicotine 21 MG PATCH TD SCH (22:14)
[2020-08-27 06:02] LABS: #Basophils 0.1 thou/uL (0.0-0.2); #Eosinphils 0.1 thou/uL (0.0-0.7); #Lymphocytes 1.4 thou/uL (1.20-3.40); #Monocytes 1.2 thou/uL (0.11-0.59); #Neutrophils 5.7 thou/uL (1.40-6.50); %Basophils 0.7 % (0.0-1.0); %Eosinophils 0.7 % (0.0-10.0); %Lymphocytes 16.3 % (21.0-51.0); %Monocytes 14.7 % (0.0-10.0); %Neutrophils 67.7 % (42.0-75.0); Hemoglobin 11.2 g/dL (14.0-18.0); Mean Corpuscular HGB CONC 31.5 g/dL (32.0-36.0); Mean Corpuscular Hemoglobin 31.3 pg (27.0-31.0); Mean Corpuscular Volume 99.4 fL (78.0-98.0); Mean Platelet Volume 7.2 fL (7.4-10.4); Platelet Count 421 thou/uL (130-400); RBC Distribution Width 12.1 % (11.5-14.5); Red Blood Cell (RBC) Count 3.58 mill/uL (4.70-6.10); White Blood Cell (WBC) Count 8.4 thou/uL (4.8-10.8)
[2020-08-27 06:18] LABS: Anion Gap 13 mmol/L (10-20); BUN (Urea Nitrogen) 7 mg/dL (8.4-25.7); Calc. Creatinine Clearance 108 mL/min (70-130); Calcium 9.2 mg/dL (7.8-10.44); Carbon Dioxide 27 mmol/L (23-31); Chloride 101 mmol/L (98-107); Glucose 115 mg/dL (80-115); Potassium 4.2 mmol/L (3.5-5.1); Sodium 137 mmol/L (136-145)
[2020-08-27] MEDS: Mometasone 100 MCG/Formoterol 5 MCG 120 PUFF INHALER INH SCH (06:40)
[2020-08-27] MEDS ORDERED: Aspirin 81 mg Enteric Coated Tablet PO SCH (09:00)
[2020-08-27] MEDS: Senokot S 8.6-50 MG TAB PO SCH (10:00)
[2020-08-27] MEDS: Gabapentin 300 MG CAP PO SCH ×2 (10:01→14:56)
[2020-08-27] MEDS: Citalopram 20 MG TAB PO SCH (10:02)
[2020-08-27] MEDS: Enoxaparin Sodium 40 MG/0.4 ML SYRINGE SC SCH (10:04)
[2020-08-27] MEDS: Polyethylene Glycol 3350 17 GM Packet PER TUBE SCH (10:04)
[2020-08-27] MEDS: traMADol HCl 50 MG TAB PO PRN (10:06)
[2020-08-27] MEDS ORDERED: Sodium Chloride 0.65% Nasal 44 ML BOT EA NARE PRN (10:22)
[2020-08-27] MEDS ORDERED: Loperamide HCl 2 MG CAP PO PRN (10:22)
[2020-08-27] MEDS ORDERED: GUAIFENESIN SF SOLN 200 MG/10 ML UDCUP PO PRN (10:22)
[2020-08-27] MEDS ORDERED: Cepastat Lozenges 1 LOZ PO PRN (10:22)
[2020-08-27] MEDS ORDERED: Calcium Carbonate 500 MG ChewTAB PO PRN (10:22)
[2020-08-27] MEDS ORDERED: Ondansetron ODT 4 MG TAB PO PRN (10:22)
[2020-08-27] MEDS ORDERED: Polyethylene Glycol 3350 17 GM Packet PO SCH ×2 (10:24→10:45)
[2020-08-27 16:00] VITALS: BP 116/78; TEMP 98.3
[2020-08-27] MEDS ORDERED: Mometasone 200 MCG/Formoterol 5 MCG 120 PUFF INHALER INH SCH (18:30)
[2020-08-27] MEDS ORDERED: Famotidine 20 MG TAB PO SCH (21:00)
[2020-08-28] MEDS ORDERED: Cyanocobalamin (Vitamin B-12) 1,000 MCG TAB PO SCH (09:00)
[2020-08-28] MEDS ORDERED: Polyethylene Glycol 3350 17 GM Packet PO SCH (09:00)
[2020-08-28] MEDS ORDERED: Multivitamin W/ Minerals 1 TAB PO SCH (09:00)
[2020-08-28] MEDS ORDERED: Folic Acid 1 MG TAB PO SCH (09:00)
== END 2020-08-27 18:15 | DRG 240 ==
LOC: SJJU 17:02 → 3SE 08-23 14:38 → SJJU 08-23 14:39
PROVIDERS: ADMIT Internal Medicine; ATTEND Internal Medicine
PROC: 0Y6J0Z1 Detachment at Left Lower Leg, High, Open Approach (ICD-10-PCS; principal; 2020-08-23)
DX: E11.52 Type 2 diabetes mellitus with diabetic peripheral angiopathy with gangrene (principal); I96 Gangrene, not elsewhere classified; L03.116 Cellulitis of left lower limb; M86.8X7 Other osteomyelitis, ankle and foot; Z20.822 Contact with and (suspected) exposure to COVID-19; E11.621 Type 2 diabetes mellitus with foot ulcer; L97.529 Non-pressure chronic ulcer of other part of left foot with unspecified severity; I25.10 Atherosclerotic heart disease of native coronary artery without angina pectoris; J44.9 Chronic obstructive pulmonary disease, unspecified; I10 Essential (primary) hypertension; E78.5 Hyperlipidemia, unspecified; F17.210 Nicotine dependence, cigarettes, uncomplicated; D53.9 Nutritional anemia, unspecified; F41.9 Anxiety disorder, unspecified; F31.9 Bipolar disorder, unspecified; F20.9 Schizophrenia, unspecified; E78.00 Pure hypercholesterolemia, unspecified; E11.628 Type 2 diabetes mellitus with other skin complications; E11.65 Type 2 diabetes mellitus with hyperglycemia; E11.69 Type 2 diabetes mellitus with other specified complication; Z79.899 Other long term (current) drug therapy; Z79.82 Long term (current) use of aspirin; Z95.1 Presence of aortocoronary bypass graft; Z79.84 Long term (current) use of oral hypoglycemic drugs
CPT/HCPCS: 36415; 36416; 80048; 85025; 87040; 87635; 88307; 93005; 93010; J0692; J1170; J1650; J2270; J2405; J2704; J3010; J3490; U0003; U0005

== ENCOUNTER 2020-10-11 11:34 | Emergency (ER) | payer OTHER ==
[~2020-10-11 11:34] MED LIST: Iopamidol-370 76% 500 ML 1 ML ONE
[2020-10-11 12:00] LABS: #Eosinphils 0.1 thou/uL (0.0-0.7); #Lymphocytes 0.8 thou/uL (1.20-3.40); #Monocytes 0.7 thou/uL (0.11-0.59); #Neutrophils 6.7 thou/uL (1.40-6.50); %Basophils 0.4 % (0.0-1.0); %Eosinophils 0.6 % (0.0-10.0); %Lymphocytes 9.6 % (21.0-51.0); %Monocytes 8.6 % (0.0-10.0); %Neutrophils 80.8 % (42.0-75.0); Hemoglobin 15.1 g/dL (14.0-18.0); Mean Corpuscular HGB CONC 31.2 g/dL (32.0-36.0); Mean Corpuscular Hemoglobin 30.3 pg (27.0-31.0); Mean Corpuscular Volume 97.2 fL (78.0-98.0); Mean Platelet Volume 8.1 fL (7.4-10.4); Platelet Count 175 thou/uL (130-400); RBC Distribution Width 12.6 % (11.5-14.5); Red Blood Cell (RBC) Count 4.98 mill/uL (4.70-6.10); White Blood Cell (WBC) Count 8.2 thou/uL (4.8-10.8)
[2020-10-11 12:28] LABS: ALT (SGPT) 53 U/L (8-55); AST (SGOT) 91 U/L (5-34); Albumin 4.1 g/dL (3.4-4.8); Alkaline Phosphatase 76 U/L (40-110); Anion Gap 20 mmol/L (10-20); BUN (Urea Nitrogen) 5 mg/dL (8.4-25.7); Bilirubin, Total 0.8 mg/dL (0.2-1.2); Calc. Creatinine Clearance 0 mL/min (70-130); Calcium 9.9 mg/dL (7.8-10.44); Carbon Dioxide 20 mmol/L (23-31); Chloride 97 mmol/L (98-107); Globulin 5.1 g/dL (2.4-3.5); Glucose 125 mg/dL (80-115); Lipase 18 U/L (8-78); Potassium 5.3 mmol/L (3.5-5.1); Protein, Total 9.2 g/dL (5.8-8.1); Sodium 132 mmol/L (136-145)
[2020-10-11 13:00] LABS: Bacteria/HPF None Seen HPF (None Seen); Bilirubin Negative (Negative); Blood, Urine Negative (Negative); Clarity Clear (Clear); Glucose, Urine (Dipstick) Normal (Negative); Ketone, Urine Trace mg/dL (Negative); Leukocyte Negative Leu/uL (Negative); Nitrite Negative (Negative); Protein, Urine (Dipstick) 30 mg/dL (Neg-Trace); RBC/HPF 0-3 HPF (0-3); Specific Gravity, Urine 1.023 (1.002-1.036); Squamous Epithelial 0-3 HPF (0-3); WBC/HPF 0-3 HPF (0-3); pH, Urine 7.5 (5.0-9.0)
[2020-10-11] MEDS ORDERED: Acetaminophen 500 MG TAB ONE (13:33)
== END 2020-10-11 15:20 | disposition home or self-care (01) ==
LOC: ERS 11:34
DX: R53.1 Weakness (principal); R11.2 Nausea with vomiting, unspecified; R19.7 Diarrhea, unspecified; N28.1 Cyst of kidney, acquired; R05 Cough; R06.02 Shortness of breath; E78.5 Hyperlipidemia, unspecified; I10 Essential (primary) hypertension; J44.9 Chronic obstructive pulmonary disease, unspecified; F17.210 Nicotine dependence, cigarettes, uncomplicated
CPT/HCPCS: 71045; 74177; 80053; 81003; 81015; 83605; 83690; 84484; 85025; 87040; 87086; 87149; 93005; Q9967

== ENCOUNTER 2020-10-20 20:32 | Inpatient (IN) | payer OTHER ==
[2020-10-20 21:31] LABS: Hemoglobin 14.1 g/dL (14.0-18.0); Mean Corpuscular HGB CONC 32.2 g/dL (32.0-36.0); Mean Corpuscular Volume 96.5 fL (78.0-98.0); Mean Platelet Volume 7.5 fL (7.4-10.4); Platelet Count 261 thou/uL (130-400); RBC Distribution Width 12.9 % (11.5-14.5); Red Blood Cell (RBC) Count 4.55 mill/uL (4.70-6.10); White Blood Cell (WBC) Count 8.8 thou/uL (4.8-10.8)
[2020-10-20] MEDS ORDERED: Morphine 4 MG/ML VIAL ONE (21:41)
[2020-10-20] MEDS ORDERED: Cefepime 2 GM VIAL ONE (21:41)
[2020-10-20 21:47] LABS: Band 2 % (5-11); Lymphocytes 31 % (21-51); MDiff Complete? YES; Monocytes 15 % (0-10); Neutrophil 51 % (42-75)
[2020-10-20 21:53] LABS: ALT (SGPT) 20 U/L (8-55); AST (SGOT) 30 U/L (5-34); Albumin 4.1 g/dL (3.4-4.8); Alkaline Phosphatase 75 U/L (40-110); Anion Gap 15 mmol/L (10-20); BUN (Urea Nitrogen) 7 mg/dL (8.4-25.7); Bilirubin, Total 0.4 mg/dL (0.2-1.2); Calc. Creatinine Clearance 0 mL/min (70-130); Calcium 9.8 mg/dL (7.8-10.44); Carbon Dioxide 25 mmol/L (23-31); Chloride 101 mmol/L (98-107); Globulin 4.1 g/dL (2.4-3.5); Glucose 107 mg/dL (80-115); Potassium 3.6 mmol/L (3.5-5.1); Protein, Total 8.2 g/dL (5.8-8.1); Sodium 137 mmol/L (136-145)
[2020-10-20] MEDS ORDERED: Senokot S 8.6-50 MG TAB PO PRN (22:52)
[2020-10-20] MEDS ORDERED: Ondansetron PF 4 MG/2 ML Vial IVP PRN (22:52)
[2020-10-20] MEDS ORDERED: Acetaminophen 325 MG TAB PO PRN (22:52)
[2020-10-20] MEDS ORDERED: Sodium Chloride 0.9% 1,000 ML IV SCH (23:00)
[2020-10-20] MEDS ORDERED: Albuterol 200 PUFF (6.7GM INHALER) INH PRN (23:26)
[2020-10-20] MEDS ORDERED: HumaLOG 300 UNITS/3 ML VIAL SC PRN ×2 (23:27)
[2020-10-20] MEDS ORDERED: Dextrose 50% Abboject 50 ML SYRINGE SLOW IVP PRN (23:27)
[2020-10-20] MEDS ORDERED: Dextrose 5% in Water 1,000 ML IV PRN (23:27)
[2020-10-20 23:52] VITALS: BMI 21.1
[2020-10-21] MEDS: HYDROcodone/Acetaminophen 5/325 mg Tablet PO PRN ×3 (00:29→14:29)
[2020-10-21] MEDS: Nicotine 21 MG PATCH TD SCH ×2 (00:31→23:19)
[2020-10-21] MEDS ORDERED: Vancomycin 1.5 GRAM/300 ML BAG 1.5 GM in Premix Bag 1 BAG IVPB SCH ×2 (01:15→02:00)
[2020-10-21 06:57] LABS: #Basophils 0.1 thou/uL (0.0-0.2); #Eosinphils 0.1 thou/uL (0.0-0.7); #Lymphocytes 2.6 thou/uL (1.20-3.40); #Monocytes 1.1 thou/uL (0.11-0.59); #Neutrophils 3.4 thou/uL (1.40-6.50); %Basophils 0.9 % (0.0-1.0); %Eosinophils 1.2 % (0.0-10.0); %Lymphocytes 35.9 % (21.0-51.0); %Monocytes 14.8 % (0.0-10.0); %Neutrophils 47.2 % (42.0-75.0); Hemoglobin 13.4 g/dL (14.0-18.0); Mean Corpuscular Hemoglobin 32.3 pg (27.0-31.0); Mean Corpuscular Volume 97.8 fL (78.0-98.0); Mean Platelet Volume 7.7 fL (7.4-10.4); Platelet Count 234 thou/uL (130-400); RBC Distribution Width 12.8 % (11.5-14.5); Red Blood Cell (RBC) Count 4.16 mill/uL (4.70-6.10); White Blood Cell (WBC) Count 7.3 thou/uL (4.8-10.8)
[2020-10-21 07:06] LABS: Hemoglobin A1c 5.1 % (4.0-6.0)
[2020-10-21 07:30] LABS: ALT (SGPT) 17 U/L (8-55); AST (SGOT) 25 U/L (5-34); Albumin 3.4 g/dL (3.4-4.8); Alkaline Phosphatase 62 U/L (40-110); Anion Gap 15 mmol/L (10-20); BUN (Urea Nitrogen) 6 mg/dL (8.4-25.7); Bilirubin, Total 0.3 mg/dL (0.2-1.2); CRP (Inflammatory) 1.75 mg/dL (= or < 0.5); Calc. Creatinine Clearance 105 mL/min (70-130); Calcium 8.9 mg/dL (7.8-10.44); Carbon Dioxide 19 mmol/L (23-31); Cardiac Risk 2.2 (Less than 4.5); Chloride 110 mmol/L (98-107); Cholesterol 153 mg/dl (< 200 Desired); Globulin 3.6 g/dL (2.4-3.5); Glucose 77 mg/dL (80-115); HDL Cholesterol 69 mg/dL (>60 Neg Risk); LDL Cholesterol, Calculated 64 mg/dL; Potassium 3.8 mmol/L (3.5-5.1); Sodium 140 mmol/L (136-145); Triglycerides 99 mg/dL (Less than 150)
[2020-10-21] MEDS: Mometasone 100 MCG/Formoterol 5 MCG 120 PUFF INHALER INH SCH ×2 (08:10→20:00)
[2020-10-21] MEDS: Citalopram 20 MG TAB PO SCH (09:51)
[2020-10-21] MEDS: Gabapentin 300 MG CAP PO SCH ×3 (09:52→20:50)
[2020-10-21] MEDS: CEFEPIME HCL IN DEXTROSE 5 % 1 GM in Premix Bag 1 BAG IVPB SCH ×2 (10:31→20:50)
[2020-10-21 12:51] LABS: SARS-CoV-2 PCR by NAA Not Detected (NotDetected)
[2020-10-21] MEDS: Enoxaparin Sodium 40 MG/0.4 ML SYRINGE SC SCH (14:14)
[2020-10-21] MEDS: VANCOMYCIN 1.25 GM/250 ML BAG 1.25 GM in Premix Bag 1 BAG IVPB SCH (14:28)
[2020-10-21] MEDS: Aripiprazole 15 MG TAB PO SCH (20:50)
[2020-10-22] MEDS: VANCOMYCIN 1.25 GM/250 ML BAG 1.25 GM in Premix Bag 1 BAG IVPB SCH (01:52)
[2020-10-22] MEDS: Mometasone 100 MCG/Formoterol 5 MCG 120 PUFF INHALER INH SCH ×2 (07:35→23:19)
[2020-10-22] MEDS: Gabapentin 300 MG CAP PO SCH ×3 (09:14→20:22)
[2020-10-22] MEDS: CEFEPIME HCL IN DEXTROSE 5 % 1 GM in Premix Bag 1 BAG IVPB SCH (09:14)
[2020-10-22] MEDS: Citalopram 20 MG TAB PO SCH (09:14)
[2020-10-22] MEDS ORDERED: Sodium Chloride 0.9% 1,000 ML IV SCH (09:15)
[2020-10-22] MEDS ORDERED: Aspirin 325 MG TAB PO SCH (09:15)
[2020-10-22] MEDS: Enoxaparin Sodium 40 MG/0.4 ML SYRINGE SC SCH (09:21)
[2020-10-22 10:00] LABS: PTT 36.2 sec (22.9-36.1); Prothrombin Time 13.3 sec (12.0-14.7)
[2020-10-22 10:07] LABS: ALT (SGPT) 15 U/L (8-55); AST (SGOT) 19 U/L (5-34); Albumin 3.6 g/dL (3.4-4.8); Alkaline Phosphatase 66 U/L (40-110); Anion Gap 11 mmol/L (10-20); BUN (Urea Nitrogen) 6 mg/dL (8.4-25.7); Bilirubin, Total 0.5 mg/dL (0.2-1.2); Calc. Creatinine Clearance 100 mL/min (70-130); Calcium 9.4 mg/dL (7.8-10.44); Carbon Dioxide 26 mmol/L (23-31); Chloride 103 mmol/L (98-107); Globulin 3.6 g/dL (2.4-3.5); Glucose 94 mg/dL (80-115); Potassium 4.2 mmol/L (3.5-5.1); Protein, Total 7.2 g/dL (5.8-8.1); Sodium 136 mmol/L (136-145)
[2020-10-22] MEDS ORDERED: Iopamidol-370 76% 500 ML 1 ML ONE (10:32)
[2020-10-22 13:18] LABS: Vancomycin, Trough 12.1 ug/mL
[2020-10-22] MEDS: Aripiprazole 15 MG TAB PO SCH (20:21)
[2020-10-22] MEDS: Atorvastatin Calcium 40 MG TAB PO SCH (20:22)
[2020-10-22] MEDS: HYDROcodone/Acetaminophen 5/325 mg Tablet PO PRN (20:23)
[2020-10-22] MEDS: Nicotine 21 MG PATCH TD SCH (22:45)
[2020-10-23] MEDS: HYDROcodone/Acetaminophen 5/325 mg Tablet PO PRN ×2 (04:02→20:01)
[2020-10-23 06:33] LABS: #Eosinphils 0.1 thou/uL (0.0-0.7); #Lymphocytes 1.7 thou/uL (1.20-3.40); #Monocytes 0.8 thou/uL (0.11-0.59); #Neutrophils 4.3 thou/uL (1.40-6.50); %Basophils 0.6 % (0.0-1.0); %Eosinophils 0.8 % (0.0-10.0); %Monocytes 11.7 % (0.0-10.0); %Neutrophils 61.9 % (42.0-75.0); Hemoglobin 13.2 g/dL (14.0-18.0); Mean Corpuscular HGB CONC 31.9 g/dL (32.0-36.0); Mean Corpuscular Hemoglobin 30.8 pg (27.0-31.0); Mean Corpuscular Volume 96.6 fL (78.0-98.0); Mean Platelet Volume 7.9 fL (7.4-10.4); Platelet Count 242 thou/uL (130-400); RBC Distribution Width 12.8 % (11.5-14.5); Red Blood Cell (RBC) Count 4.27 mill/uL (4.70-6.10); White Blood Cell (WBC) Count 6.9 thou/uL (4.8-10.8)
[2020-10-23 06:45] LABS: Anion Gap 12 mmol/L (10-20); BUN (Urea Nitrogen) 8 mg/dL (8.4-25.7); Calc. Creatinine Clearance 150 mL/min (70-130); Calcium 9.1 mg/dL (7.8-10.44); Carbon Dioxide 26 mmol/L (23-31); Chloride 103 mmol/L (98-107); Glucose 97 mg/dL (80-115); Potassium 3.7 mmol/L (3.5-5.1); Sodium 137 mmol/L (136-145)
[2020-10-23] MEDS: Mometasone 100 MCG/Formoterol 5 MCG 120 PUFF INHALER INH SCH ×2 (07:03→18:53)
[2020-10-23] MEDS: Aspirin 325 mg Enteric Coated Tablet PO SCH (09:02)
[2020-10-23] MEDS: Senokot S 8.6-50 MG TAB PO SCH ×2 (09:02→20:00)
[2020-10-23] MEDS: Gabapentin 300 MG CAP PO SCH ×3 (09:03→20:00)
[2020-10-23] MEDS: Citalopram 20 MG TAB PO SCH (09:04)
[2020-10-23] MEDS: Enoxaparin Sodium 40 MG/0.4 ML SYRINGE SC SCH (09:06)
[2020-10-23] MEDS: Polyethylene Glycol 3350 17 GM Packet PO SCH (09:07)
[2020-10-23] MEDS ORDERED: Magnevist 469MG/ML 20 ML VIAL ONE (10:36)
[2020-10-23] MEDS: Atorvastatin Calcium 40 MG TAB PO SCH (20:00)
[2020-10-23] MEDS: Aripiprazole 15 MG TAB PO SCH (20:00)
[2020-10-24] MEDS: Nicotine 21 MG PATCH TD SCH ×2 (00:07→22:28)
[2020-10-24 05:40] LABS: #Basophils 0.1 thou/uL (0.0-0.2); #Eosinphils 0.1 thou/uL (0.0-0.7); #Lymphocytes 1.7 thou/uL (1.20-3.40); #Monocytes 0.7 thou/uL (0.11-0.59); #Neutrophils 3.9 thou/uL (1.40-6.50); %Eosinophils 1.3 % (0.0-10.0); %Lymphocytes 26.4 % (21.0-51.0); %Monocytes 10.7 % (0.0-10.0); %Neutrophils 60.6 % (42.0-75.0); Hemoglobin 13.3 g/dL (14.0-18.0); Mean Corpuscular HGB CONC 32.5 g/dL (32.0-36.0); Mean Corpuscular Hemoglobin 31.3 pg (27.0-31.0); Mean Corpuscular Volume 96.5 fL (78.0-98.0); Mean Platelet Volume 7.7 fL (7.4-10.4); Platelet Count 253 thou/uL (130-400); RBC Distribution Width 12.8 % (11.5-14.5); Red Blood Cell (RBC) Count 4.26 mill/uL (4.70-6.10); White Blood Cell (WBC) Count 6.4 thou/uL (4.8-10.8)
[2020-10-24 06:01] LABS: Anion Gap 11 mmol/L (10-20); BUN (Urea Nitrogen) 5 mg/dL (8.4-25.7); Calc. Creatinine Clearance 104 mL/min (70-130); Calcium 9.1 mg/dL (7.8-10.44); Carbon Dioxide 26 mmol/L (23-31); Chloride 104 mmol/L (98-107); Glucose 125 mg/dL (80-115); Potassium 3.6 mmol/L (3.5-5.1); Sodium 137 mmol/L (136-145)
[2020-10-24] MEDS: Mometasone 100 MCG/Formoterol 5 MCG 120 PUFF INHALER INH SCH ×2 (07:18→19:31)
[2020-10-24] MEDS: Aspirin 325 mg Enteric Coated Tablet PO SCH (09:13)
[2020-10-24] MEDS: Senokot S 8.6-50 MG TAB PO SCH ×2 (09:13→20:42)
[2020-10-24] MEDS: Citalopram 20 MG TAB PO SCH (09:14)
[2020-10-24] MEDS: Polyethylene Glycol 3350 17 GM Packet PO SCH (09:14)
[2020-10-24] MEDS: HYDROcodone/Acetaminophen 5/325 mg Tablet PO PRN ×3 (09:14→20:43)
[2020-10-24] MEDS: Gabapentin 300 MG CAP PO SCH ×3 (09:14→20:42)
[2020-10-24] MEDS: Enoxaparin Sodium 40 MG/0.4 ML SYRINGE SC SCH (09:14)
[2020-10-24] MEDS: Aripiprazole 15 MG TAB PO SCH (20:42)
[2020-10-24] MEDS: Atorvastatin Calcium 40 MG TAB PO SCH (20:42)
[2020-10-25] MEDS: Mometasone 100 MCG/Formoterol 5 MCG 120 PUFF INHALER INH SCH ×2 (06:59→18:21)
[2020-10-25] MEDS: Citalopram 20 MG TAB PO SCH (08:41)
[2020-10-25] MEDS: Gabapentin 300 MG CAP PO SCH ×3 (08:41→20:57)
[2020-10-25] MEDS: Polyethylene Glycol 3350 17 GM Packet PO SCH (09:06)
[2020-10-25] MEDS: Aspirin 81 mg Enteric Coated Tablet PO SCH (09:06)
[2020-10-25] MEDS: Senokot S 8.6-50 MG TAB PO SCH ×2 (09:07→20:58)
[2020-10-25] MEDS ORDERED: Lactated Ringer's 1,000 ML IV SCH (09:45)
[2020-10-25] MEDS ORDERED: Fentanyl 100 MCG/2 ML VIAL ONE (14:10)
[2020-10-25] MEDS ORDERED: Ketorolac Tromethamine 30 MG/ML VIAL ONE (14:28)
[2020-10-25] MEDS ORDERED: Lidocaine 1% PF 5 ML VIAL ONE (14:28)
[2020-10-25] MEDS ORDERED: PROPOFOL 200 MG/20 ML VIAL ONE (14:28)
[2020-10-25] MEDS ORDERED: Ondansetron HCl/PF 4 MG/2 ML Vial IVP PRN (15:26)
[2020-10-25] MEDS ORDERED: Promethazine HCl 25 MG/ML VIAL IM PRN (15:26)
[2020-10-25] MEDS ORDERED: Meperidine HCl/PF 25 MG/ML VIAL SLOW IVP PRN (15:26)
[2020-10-25] MEDS ORDERED: Promethazine HCl 25 MG/ML VIAL IVPB PRN (15:26)
[2020-10-25] MEDS ORDERED: HYDROmorphone 2 MG/ML VIAL SLOW IVP PRN (15:26)
[2020-10-25] MEDS: HYDROcodone/Acetaminophen 5/325 mg Tablet PO PRN ×2 (18:43→23:33)
[2020-10-25] MEDS: Sulfameth/Trimethoprim DS 800-160mg TAB PO SCH (20:58)
[2020-10-25] MEDS: Ciprofloxacin 500 MG TAB PO SCH (20:58)
[2020-10-25] MEDS: Atorvastatin Calcium 40 MG TAB PO SCH (20:58)
[2020-10-25] MEDS: Aripiprazole 15 MG TAB PO SCH (20:59)
[2020-10-25] MEDS: Nicotine 21 MG PATCH TD SCH (23:33)
[2020-10-26] MEDS: Ciprofloxacin 500 MG TAB PO SCH ×2 (05:30→21:11)
[2020-10-26] MEDS: HYDROcodone/Acetaminophen 5/325 mg Tablet PO PRN ×3 (05:30→15:10)
[2020-10-26] MEDS: Mometasone 100 MCG/Formoterol 5 MCG 120 PUFF INHALER INH SCH ×2 (08:30→18:12)
[2020-10-26] MEDS: Citalopram 20 MG TAB PO SCH (08:35)
[2020-10-26] MEDS: Saccharomyces boulardii 250 MG CAP PO SCH (08:35)
[2020-10-26] MEDS: Sulfameth/Trimethoprim DS 800-160mg TAB PO SCH ×2 (08:35→21:10)
[2020-10-26] MEDS: Gabapentin 300 MG CAP PO SCH ×3 (08:35→21:10)
[2020-10-26] MEDS: Senokot S 8.6-50 MG TAB PO SCH ×2 (08:36→21:10)
[2020-10-26] MEDS: Polyethylene Glycol 3350 17 GM Packet PO SCH (08:36)
[2020-10-26] MEDS: Aspirin 81 mg Enteric Coated Tablet PO SCH (08:36)
[2020-10-26] MEDS: Aripiprazole 15 MG TAB PO SCH (21:10)
[2020-10-26] MEDS: Atorvastatin Calcium 40 MG TAB PO SCH (21:10)
[2020-10-26] MEDS: Nicotine 21 MG PATCH TD SCH (21:11)
[2020-10-27] MEDS: Ciprofloxacin 500 MG TAB PO SCH (05:23)
[2020-10-27] MEDS: Mometasone 100 MCG/Formoterol 5 MCG 120 PUFF INHALER INH SCH (07:48)
[2020-10-27] MEDS: Gabapentin 300 MG CAP PO SCH ×2 (09:50→15:59)
[2020-10-27] MEDS: Citalopram 20 MG TAB PO SCH (09:50)
[2020-10-27] MEDS: Senokot S 8.6-50 MG TAB PO SCH (09:51)
[2020-10-27] MEDS: Polyethylene Glycol 3350 17 GM Packet PO SCH (09:51)
[2020-10-27] MEDS: Sulfameth/Trimethoprim DS 800-160mg TAB PO SCH (09:51)
[2020-10-27] MEDS: Aspirin 81 mg Enteric Coated Tablet PO SCH (09:51)
[2020-10-27] MEDS: HYDROcodone/Acetaminophen 5/325 mg Tablet PO PRN (09:51)
[2020-10-27] MEDS: Saccharomyces boulardii 250 MG CAP PO SCH (09:51)
[2020-10-27 15:59] VITALS: BP 99/65; TEMP 97.8
== END 2020-10-27 17:43 | disposition home or self-care (01) | DRG 617 ==
LOC: ERS 20:32 → SURG A 22:32
PROVIDERS: ADMIT Internal Medicine; ATTEND Internal Medicine
PROC: 0Y6R0Z1 Detachment at Right 2nd Toe, High, Open Approach (ICD-10-PCS; principal; 2020-10-25)
PROC: 0Y6T0Z1 Detachment at Right 3rd Toe, High, Open Approach (ICD-10-PCS; 2020-10-25)
DX: E11.69 Type 2 diabetes mellitus with other specified complication (principal); L03.115 Cellulitis of right lower limb; M86.8X7 Other osteomyelitis, ankle and foot; E44.0 Moderate protein-calorie malnutrition; Z20.822 Contact with and (suspected) exposure to COVID-19; E11.42 Type 2 diabetes mellitus with diabetic polyneuropathy; K21.9 Gastro-esophageal reflux disease without esophagitis; F41.9 Anxiety disorder, unspecified; F25.0 Schizoaffective disorder, bipolar type; F17.210 Nicotine dependence, cigarettes, uncomplicated; J44.9 Chronic obstructive pulmonary disease, unspecified; I10 Essential (primary) hypertension; E78.5 Hyperlipidemia, unspecified; I25.10 Atherosclerotic heart disease of native coronary artery without angina pectoris; F10.20 Alcohol dependence, uncomplicated; E11.621 Type 2 diabetes mellitus with foot ulcer; L97.529 Non-pressure chronic ulcer of other part of left foot with unspecified severity; Z95.1 Presence of aortocoronary bypass graft; Z82.49 Family history of ischemic heart disease and other diseases of the circulatory system; Z68.21 Body mass index [BMI] 21.0-21.9, adult; Z79.84 Long term (current) use of oral hypoglycemic drugs; Z79.51 Long term (current) use of inhaled steroids; Z79.899 Other long term (current) drug therapy; Z89.512 Acquired absence of left leg below knee
CPT/HCPCS: 36415; 36416; 75635; 80048; 80053; 80061; 80202; 83036; 83605; 85025; 85610; 85652; 85730; 86140; 87040; 88305; 93926; 96365; 96375; A9579; J0690; J0692; J1650; J1885; J2270; J2405; J2704; J3010; J3370; Q9967; U0003; U0005

== ENCOUNTER 2021-01-27 14:28 | Observation (INO) | payer OTHER ==
[2021-01-27] MEDS ORDERED: methylPREDNISolone Sod Succ/PF 125 MG/2 ML VIAL ONE (15:29)
[2021-01-27] MEDS ORDERED: Magnesium 2 GM/50 ML BAG (IN WATER) ONE (15:29)
[2021-01-27] MEDS ORDERED: Albuterol 200 PUFF (6.7GM INHALER) ONE (15:31)
[2021-01-27 15:32] LABS: #Basophils 0.1 thou/uL (0.0-0.2); #Eosinphils 0.1 thou/uL (0.0-0.7); #Lymphocytes 2.4 thou/uL (1.20-3.40); #Monocytes 0.7 thou/uL (0.11-0.59); %Basophils 0.9 % (0.0-1.0); %Lymphocytes 38.5 % (21.0-51.0); %Monocytes 11.9 % (0.0-10.0); %Neutrophils 47.8 % (42.0-75.0); Hemoglobin 16.2 g/dL (14.0-18.0); Mean Corpuscular HGB CONC 33.7 g/dL (32.0-36.0); Mean Corpuscular Hemoglobin 32.3 pg (27.0-31.0); Mean Platelet Volume 7.8 fL (7.4-10.4); Platelet Count 154 thou/uL (130-400); RBC Distribution Width 12.5 % (11.5-14.5); Red Blood Cell (RBC) Count 5.01 mill/uL (4.70-6.10); White Blood Cell (WBC) Count 6.2 thou/uL (4.8-10.8)
[2021-01-27 15:59] LABS: ALT (SGPT) 100 U/L (8-55); AST (SGOT) 117 U/L (5-34); Albumin 4.4 g/dL (3.4-4.8); Alkaline Phosphatase 70 U/L (40-110); Anion Gap 17 mmol/L (10-20); BUN (Urea Nitrogen) 7 mg/dL (8.4-25.7); Bilirubin, Total 0.5 mg/dL (0.2-1.2); Calc. Creatinine Clearance 0 mL/min (70-130); Calcium 9.6 mg/dL (7.8-10.44); Carbon Dioxide 24 mmol/L (23-31); Chloride 101 mmol/L (98-107); Globulin 3.9 g/dL (2.4-3.5); Glucose 99 mg/dL (80-115); Lipase 34 U/L (8-78); Potassium 4.3 mmol/L (3.5-5.1); Protein, Total 8.3 g/dL (5.8-8.1); Sodium 138 mmol/L (136-145)
[2021-01-27] MEDS ORDERED: Dextrose 50% Abboject 50 ML SYRINGE SLOW IVP PRN (18:22)
[2021-01-27] MEDS ORDERED: HumaLOG 300 UNITS/3 ML VIAL SC PRN ×2 (18:22)
[2021-01-27] MEDS ORDERED: Dextrose 5% in Water 1,000 ML IV PRN (18:22)
[2021-01-27] MEDS ORDERED: Nitroglycerin 0.4 MG TAB (25 Tab Bottle) SL PRN (18:24)
[2021-01-27] MEDS ORDERED: Ondansetron ODT 4 MG TAB PO PRN ×2 (18:29→18:31)
[2021-01-27 18:31] LABS: SARS-CoV-2 NAA Rapid Test Not Detected (NotDetected)
[2021-01-27] MEDS ORDERED: Acetaminophen 325 MG TAB PO PRN (18:31)
[2021-01-27] MEDS ORDERED: Acetaminophen 650 MG Suppository PR PRN (18:31)
[2021-01-27] MEDS ORDERED: Albuterol Sulfate 2.5 mg/3 ml Neb NEB PRN (18:44)
[2021-01-27] MEDS ORDERED: guaiFENesin 200 MG TAB PO PRN (20:03)
[2021-01-27 20:05] LABS: ALT (SGPT) 83 U/L (8-55); AST (SGOT) 94 U/L (5-34); Albumin 3.9 g/dL (3.4-4.8); Alkaline Phosphatase 72 U/L (40-110); Anion Gap 20 mmol/L (10-20); BUN (Urea Nitrogen) 6 mg/dL (8.4-25.7); Bilirubin, Total 0.3 mg/dL (0.2-1.2); Calc. Creatinine Clearance 0 mL/min (70-130); Carbon Dioxide 19 mmol/L (23-31); Chloride 104 mmol/L (98-107); Globulin 3.9 g/dL (2.4-3.5); Glucose 175 mg/dL (80-115); Magnesium 2.1 mg/dL (1.6-2.6); Phosphorus 2.4 mg/dL (2.3-4.7); Potassium 4.4 mmol/L (3.5-5.1); Protein, Total 7.8 g/dL (5.8-8.1); Sodium 139 mmol/L (136-145)
[2021-01-27 20:07] LABS: Troponin I 0.035 ng/mL (< 0.028)
[2021-01-27 21:00] VITALS: BMI 20.7
[2021-01-27] MEDS ORDERED: Enoxaparin Sodium 40 MG/0.4 ML SYRINGE SC SCH (21:00)
[2021-01-27] MEDS ORDERED: Nicotine 14 MG PATCH TD SCH (21:30)
[2021-01-27] MEDS: Lorazepam 1 MG TAB PO SCH (21:34)
[2021-01-27] MEDS: Atorvastatin Calcium 40 MG TAB PO SCH (21:35)
[2021-01-27] MEDS ORDERED: Thiamine 100 MG TAB PO SCH (22:00)
[2021-01-27] MEDS ORDERED: Azithromycin 500 MG in Sodium Chloride 0.9% 250 ML 250 ML IVPB SCH (22:00)
[2021-01-27] MEDS ORDERED: cefTRIAXone\\ROCEPHIN 1 GM in Sodium Chloride 0.9% 100 ML IVPB SCH (23:00)
[2021-01-27 23:18] LABS: Amphetamine Not Detected (NotDetected); Barbiturates Screen Not Detected (NotDetected); Benzodiazepine Screen Not Detected (NotDetected); Cocaine Metabolite Screen Not Detected (NotDetected); Methadone Not Detected (NotDetected); Methamphetamine Not Detected (NotDetected); Opiate Screen Not Detected (NotDetected); Oxycodone Screen Not Detected (NotDetected); Phencyclidine (PCP) Not Detected (NotDetected); THC/Cannabinoid Screen Not Detected (NotDetected); Tricyclic Screen Not Detected (NotDetected)
[2021-01-28] MEDS: Lorazepam 1 MG TAB PO SCH ×4 (03:39→19:54)
[2021-01-28 05:58] LABS: #Lymphocytes 0.5 thou/uL (1.20-3.40); #Monocytes 0.1 thou/uL (0.11-0.59); #Neutrophils 3.1 thou/uL (1.40-6.50); %Eosinophils 0.1 % (0.0-10.0); %Monocytes 3.4 % (0.0-10.0); %Neutrophils 82.6 % (42.0-75.0); Hemoglobin 14.5 g/dL (14.0-18.0); Mean Corpuscular HGB CONC 33.6 g/dL (32.0-36.0); Mean Corpuscular Hemoglobin 32.7 pg (27.0-31.0); Mean Corpuscular Volume 97.6 fL (78.0-98.0); Mean Platelet Volume 8.1 fL (7.4-10.4); Platelet Count 132 thou/uL (130-400); RBC Distribution Width 12.4 % (11.5-14.5); Red Blood Cell (RBC) Count 4.43 mill/uL (4.70-6.10); White Blood Cell (WBC) Count 3.7 thou/uL (4.8-10.8)
[2021-01-28 06:04] LABS: Hemoglobin A1c 5.5 % (4.0-6.0)
[2021-01-28 06:24] LABS: Anion Gap 16 mmol/L (10-20); BUN (Urea Nitrogen) 7 mg/dL (8.4-25.7); Calc. Creatinine Clearance 97 mL/min (70-130); Calcium 8.9 mg/dL (7.8-10.44); Carbon Dioxide 21 mmol/L (23-31); Cardiac Risk 2.3 (Less than 4.5); Chloride 105 mmol/L (98-107); Cholesterol 187 mg/dl (< 200 Desired); Glucose 128 mg/dL (80-115); HDL Cholesterol 83 mg/dL (>60 Neg Risk); LDL Cholesterol, Calculated 96 mg/dL; Potassium 4.3 mmol/L (3.5-5.1); Sodium 138 mmol/L (136-145); Triglycerides 41 mg/dL (Less than 150)
[2021-01-28] MEDS ORDERED: methylPREDNISolone Sod Succ 40 MG VIAL IVP SCH (09:00)
[2021-01-28] MEDS ORDERED: Aspirin Chewable 81 MG TAB PO SCH (09:00)
[2021-01-28] MEDS ORDERED: FLU VACC QS2021-22(6MOS UP)/PF 60 MCG/0.5 ML SYRINGE IM ONE (09:00)
[2021-01-28] MEDS ORDERED: Folic Acid 1 MG TAB PO SCH (09:00)
[2021-01-28] MEDS ORDERED: Regadenoson 0.4 MG/5 ML SYRINGE ONE (09:01)
[2021-01-28 12:49] VITALS: TEMP 97.7
[2021-01-28] MEDS ORDERED: Famotidine 20 MG TAB PO SCH (16:00)
[2021-01-28] MEDS ORDERED: Lidocaine 5% Patch TD SCH (16:00)
[2021-01-28 16:55] VITALS: BP 130/82
[2021-01-28] MEDS ORDERED: Lorazepam 1 MG TAB PO PRN (18:29)
[2021-01-28] MEDS: Atorvastatin Calcium 40 MG TAB PO SCH (19:54)
[2021-01-28] MEDS ORDERED: Thiamine 100 MG TAB PO SCH (21:00)
[2021-01-29] MEDS ORDERED: Transdermal Patch Removal TOP SCH (04:00)
== END 2021-01-28 20:44 | disposition home or self-care (01) ==
LOC: ERS 14:28 → 2SW 17:50
PROVIDERS: ADMIT Internal Medicine; ATTEND Internal Medicine
DX: R07.9 Chest pain, unspecified (principal); I25.10 Atherosclerotic heart disease of native coronary artery without angina pectoris; R77.8 Other specified abnormalities of plasma proteins; E11.51 Type 2 diabetes mellitus with diabetic peripheral angiopathy without gangrene; J44.1 Chronic obstructive pulmonary disease with (acute) exacerbation; I10 Essential (primary) hypertension; F17.210 Nicotine dependence, cigarettes, uncomplicated; F10.10 Alcohol abuse, uncomplicated; R05.9 Cough, unspecified; E78.00 Pure hypercholesterolemia, unspecified; J18.9 Pneumonia, unspecified organism; K76.0 Fatty (change of) liver, not elsewhere classified; Z91.19 Patient's noncompliance with other medical treatment and regimen; Z79.84 Long term (current) use of oral hypoglycemic drugs; Z79.899 Other long term (current) drug therapy; Z89.421 Acquired absence of other right toe(s); Z89.512 Acquired absence of left leg below knee; Z95.1 Presence of aortocoronary bypass graft; Z20.822 Contact with and (suspected) exposure to COVID-19
CPT/HCPCS: 36415; 36416; 71045; 71275; 78452; 80048; 80053; 80061; 80306; 83036; 83690; 83735; 83880; 84100; 84484; 85025; 85379; 93005; 93017; 96365; 96372; 96375; 96376; A9500; G0378; J0456; J0696; J1650; J2785; J2920; J2930; J3475; J3490; J7050; Q9967; U0002

== ENCOUNTER 2021-03-23 17:34 | Inpatient (IN) | payer OTHER ==
[2021-03-23 18:51] LABS: #Basophils 0.1 thou/uL (0.0-0.2); #Lymphocytes 1.7 thou/uL (1.20-3.40); #Monocytes 0.7 thou/uL (0.11-0.59); #Neutrophils 3.8 thou/uL (1.40-6.50); %Basophils 1.3 % (0.0-1.0); %Eosinophils 0.3 % (0.0-10.0); %Lymphocytes 26.9 % (21.0-51.0); %Monocytes 11.6 % (0.0-10.0); Hemoglobin 15.9 g/dL (14.0-18.0); Mean Corpuscular HGB CONC 33.7 g/dL (32.0-36.0); Mean Corpuscular Hemoglobin 34.2 pg (27.0-31.0); Mean Platelet Volume 7.5 fL (7.4-10.4); Platelet Count 136 thou/uL (130-400); RBC Distribution Width 12.5 % (11.5-14.5); Red Blood Cell (RBC) Count 4.66 mill/uL (4.70-6.10); White Blood Cell (WBC) Count 6.4 thou/uL (4.8-10.8)
[2021-03-23 19:13] LABS: Acetaminophen Less than 6.0 mcg/mL (10.0-30.0); Alcohol 387 mg/dL (Less than 10); Salicylate Less than 8.0 mg/dL (15.0-30.0)
[2021-03-23 19:14] LABS: ALT (SGPT) 93 U/L (8-55); AST (SGOT) 111 U/L (5-34); Albumin 4.2 g/dL (3.4-4.8); Alkaline Phosphatase 64 U/L (40-110); Anion Gap 20 mmol/L (10-20); BUN (Urea Nitrogen) 11 mg/dL (8.4-25.7); Bilirubin, Total 0.5 mg/dL (0.2-1.2); Calc. Creatinine Clearance 0 mL/min (70-130); Calcium 9.4 mg/dL (7.8-10.44); Carbon Dioxide 22 mmol/L (23-31); Chloride 101 mmol/L (98-107); Globulin 3.7 g/dL (2.4-3.5); Glucose 72 mg/dL (80-115); Protein, Total 7.9 g/dL (5.8-8.1); Sodium 139 mmol/L (136-145)
[2021-03-23] MEDS ORDERED: Folic Acid 1 MG, Multivitamins, Adult 10 ML in Dextrose 5 %-0.45 % NaCl 1,000 ML IV SCH (23:00)
[2021-03-23] MEDS ORDERED: Thiamine HCl 200 MG/2 ML VIAL SLOW IVP SCH (23:00)
[2021-03-24 00:16] LABS: Bilirubin Negative (Negative); Blood, Urine Negative (Negative); Clarity Clear (Clear); Glucose, Urine (Dipstick) Normal (Negative); Ketone, Urine Trace mg/dL (Negative); Leukocyte Negative Leu/uL (Negative); Nitrite Negative (Negative); Protein, Urine (Dipstick) 10 mg/dL (Neg-Trace); Specific Gravity, Urine 1.013 (1.002-1.036); Urobilinogen Normal mg/dL (Less than 2)
[2021-03-24 00:26] LABS: Amphetamine Not Detected (NotDetected); Barbiturates Screen Not Detected (NotDetected); Benzodiazepine Screen Not Detected (NotDetected); Cocaine Metabolite Screen Not Detected (NotDetected); Methadone Not Detected (NotDetected); Methamphetamine Not Detected (NotDetected); Opiate Screen Not Detected (NotDetected); Oxycodone Screen Not Detected (NotDetected); Phencyclidine (PCP) Not Detected (NotDetected); THC/Cannabinoid Screen Not Detected (NotDetected); Tricyclic Screen Not Detected (NotDetected)
[2021-03-24] MEDS ORDERED: Aspirin 325 MG TAB ONE (03:51)
[2021-03-24] MEDS ORDERED: Aspirin 325 MG TAB PO SCH (04:00)
[2021-03-24] MEDS ORDERED: Lorazepam 2 MG/ML VIAL SLOW IVP PRN (07:13)
[2021-03-24] MEDS ORDERED: Dextrose 5 % And 0.9 % NaCl 1,000 ML IV SCH (07:15)
[2021-03-24] MEDS ORDERED: Senokot S 8.6-50 MG TAB PO PRN (07:18)
[2021-03-24] MEDS ORDERED: Ondansetron ODT 4 MG TAB PO PRN (07:18)
[2021-03-24] MEDS ORDERED: Guaifenesin DM 100-10/5 ML UDCUP PO PRN (07:18)
[2021-03-24] MEDS ORDERED: Nicotine 14 MG PATCH TD SCH (07:30)
[2021-03-24] MEDS ORDERED: Dextrose 50% Abboject 50 ML SYRINGE SLOW IVP PRN (07:39)
[2021-03-24] MEDS ORDERED: HumaLOG 300 UNITS/3 ML VIAL SC PRN ×2 (07:39)
[2021-03-24] MEDS ORDERED: Dextrose 5% in Water 1,000 ML IV PRN (07:39)
[2021-03-24 08:11] VITALS: BMI 19.8
[2021-03-24] MEDS ORDERED: Aspirin 325 mg Enteric Coated Tablet PO SCH (09:00)
[2021-03-24 10:05] LABS: Magnesium 1.8 mg/dL (1.6-2.6); Phosphorus 2.2 mg/dL (2.3-4.7)
[2021-03-24] MEDS ORDERED: Magnesium 2 GM/50 ML 2 GM in Premix Bag 1 BAG IVPB SCH (10:15)
[2021-03-24] MEDS ORDERED: Nicotine 14 MG PATCH ONE (10:41)
[2021-03-24] MEDS ORDERED: Magnesium 2 GM/50 ML BAG (IN WATER) ONE (10:41)
[2021-03-24] MEDS ORDERED: Folic Acid 1 MG TAB ONE (10:41)
[2021-03-24] MEDS ORDERED: Thiamine 100 MG TAB ONE (10:41)
[2021-03-24] MEDS: Nicotine 14 MG PATCH TD SCH (10:49)
[2021-03-24] MEDS: Cyanocobalamin (Vitamin B-12) 1,000 MCG TAB PO SCH (10:51)
[2021-03-24] MEDS: Folic Acid 1 MG TAB PO SCH (10:52)
[2021-03-24] MEDS: Thiamine 100 MG TAB PO SCH (10:54)
[2021-03-24] MEDS: Sodium Chloride 0.9% 1,000 ML IV SCH (10:57)
[2021-03-24] MEDS ORDERED: Calcium Carbonate 500 MG ChewTAB PO PRN (13:47)
[2021-03-24] MEDS: chlordiazePOXIDE HCl 25 MG CAP PO SCH ×3 (13:49→21:32)
[2021-03-24] MEDS ORDERED: Acetaminophen 325 MG TAB ONE (13:56)
[2021-03-24] MEDS ORDERED: Calcium Carbonate 500 MG ChewTAB ONE (13:56)
[2021-03-24] MEDS ORDERED: Multivitamin W/ Minerals 1 TAB ONE (13:57)
[2021-03-24] MEDS: Acetaminophen 325 MG TAB PO PRN ×2 (13:59→21:32)
[2021-03-24] MEDS: Multivitamin W/ Minerals 1 TAB PO SCH (14:00)
[2021-03-24] MEDS ORDERED: Lidocaine 2% Viscous Solution 10 ML, Aluminum & Magnesium Hydroxide 30 ML SSW SCH (15:30)
[2021-03-24] MEDS ORDERED: Lidocaine Viscous Sol 2% 15 ml UD Cup ONE (15:52)
[2021-03-24] MEDS ORDERED: Mag-Al 1200 mg/1200 mg/30 ML UDCUP ONE (15:53)
[2021-03-24] MEDS: Atorvastatin Calcium 40 MG TAB PO SCH (21:33)
[2021-03-25] MEDS: Sodium Chloride 0.9% 1,000 ML IV SCH ×2 (03:00→16:08)
[2021-03-25 05:52] LABS: #Monocytes 0.8 thou/uL (0.11-0.59); #Neutrophils 3.8 thou/uL (1.40-6.50); %Basophils 0.7 % (0.0-1.0); %Eosinophils 0.8 % (0.0-10.0); %Lymphocytes 16.9 % (21.0-51.0); %Monocytes 14.7 % (0.0-10.0); %Neutrophils 66.9 % (42.0-75.0); Hemoglobin 14.5 g/dL (14.0-18.0); Mean Corpuscular HGB CONC 32.8 g/dL (32.0-36.0); Mean Corpuscular Hemoglobin 33.5 pg (27.0-31.0); Mean Platelet Volume 7.7 fL (7.4-10.4); Platelet Count 103 thou/uL (130-400); Platelet Morphology Comment Appears Decreased; RBC Distribution Width 12.3 % (11.5-14.5); Red Blood Cell (RBC) Count 4.33 mill/uL (4.70-6.10); White Blood Cell (WBC) Count 5.7 thou/uL (4.8-10.8)
[2021-03-25 06:02] LABS: Anion Gap 16 mmol/L (10-20); BUN (Urea Nitrogen) 7 mg/dL (8.4-25.7); Calc. Creatinine Clearance 104 mL/min (70-130); Calcium 8.9 mg/dL (7.8-10.44); Carbon Dioxide 22 mmol/L (23-31); Chloride 102 mmol/L (98-107); Glucose 73 mg/dL (80-115); Magnesium 1.9 mg/dL (1.6-2.6); Potassium 3.7 mmol/L (3.5-5.1); Sodium 136 mmol/L (136-145)
[2021-03-25 07:50] LABS: Cardiac Risk 1.8 (Less than 4.5)
[2021-03-25] MEDS: Aspirin 81 mg Enteric Coated Tablet PO SCH (09:22)
[2021-03-25] MEDS: Folic Acid 1 MG TAB PO SCH (09:22)
[2021-03-25] MEDS: Cyanocobalamin (Vitamin B-12) 1,000 MCG TAB PO SCH (09:23)
[2021-03-25] MEDS: Nicotine 14 MG PATCH TD SCH (09:23)
[2021-03-25] MEDS: Thiamine 100 MG TAB PO SCH (09:23)
[2021-03-25] MEDS: chlordiazePOXIDE HCl 25 MG CAP PO SCH ×3 (09:23→23:21)
[2021-03-25] MEDS: Multivitamin W/ Minerals 1 TAB PO SCH (09:23)
[2021-03-25 14:19] LABS: SARS-CoV-2 PCR NAA for Saliva Not Detected (NotDetected)
[2021-03-25 15:43] LABS: Syphilis Antibody Nonreactive (Nonreactive); Syphilis Antibody Index 0.05 S/CO (<1.00 Non-Reactive)
[2021-03-25] MEDS: Atorvastatin Calcium 40 MG TAB PO SCH (23:21)
[2021-03-26] MEDS: Sodium Chloride 0.9% 1,000 ML IV SCH ×2 (03:05→15:47)
[2021-03-26 05:54] LABS: Hemoglobin 14.8 g/dL (14.0-18.0); Mean Corpuscular HGB CONC 31.7 g/dL (32.0-36.0); Mean Corpuscular Hemoglobin 32.4 pg (27.0-31.0); Mean Platelet Volume 8.1 fL (7.4-10.4); Platelet Count 89 thou/uL (130-400); RBC Distribution Width 12.2 % (11.5-14.5); Red Blood Cell (RBC) Count 4.56 mill/uL (4.70-6.10)
[2021-03-26 06:09] LABS: Anion Gap 13 mmol/L (10-20); BUN (Urea Nitrogen) 6 mg/dL (8.4-25.7); Calc. Creatinine Clearance 90 mL/min (70-130); Calcium 9.2 mg/dL (7.8-10.44); Carbon Dioxide 24 mmol/L (23-31); Chloride 104 mmol/L (98-107); Glucose 77 mg/dL (80-115); Potassium 3.6 mmol/L (3.5-5.1); Sodium 137 mmol/L (136-145)
[2021-03-26 06:48] LABS: Band 5 % (5-11); Eosinophils 1 % (0-10); Lymphocytes 34 % (21-51); MDiff Complete? YES; Monocytes 10 % (0-10); Neutrophil 50 % (42-75); Platelet Morphology Comment Appears Decreased
[2021-03-26] MEDS: Nicotine 14 MG PATCH TD SCH (11:03)
[2021-03-26] MEDS: chlordiazePOXIDE HCl 25 MG CAP PO SCH ×3 (14:56→19:49)
[2021-03-26] MEDS: Multivitamin W/ Minerals 1 TAB PO SCH (14:59)
[2021-03-26] MEDS: Folic Acid 1 MG TAB PO SCH (15:00)
[2021-03-26] MEDS: Aspirin 81 mg Enteric Coated Tablet PO SCH (15:00)
[2021-03-26] MEDS: Cyanocobalamin (Vitamin B-12) 1,000 MCG TAB PO SCH (15:00)
[2021-03-26] MEDS: Thiamine 100 MG TAB PO SCH (15:00)
[2021-03-26] MEDS: Atorvastatin Calcium 40 MG TAB PO SCH (19:49)
[2021-03-27 05:45] LABS: #Eosinphils 0.1 thou/uL (0.0-0.7); #Lymphocytes 1.5 thou/uL (1.20-3.40); #Monocytes 0.9 thou/uL (0.11-0.59); #Neutrophils 3.7 thou/uL (1.40-6.50); %Basophils 0.6 % (0.0-1.0); %Lymphocytes 23.6 % (21.0-51.0); %Monocytes 14.5 % (0.0-10.0); %Neutrophils 60.2 % (42.0-75.0); Hemoglobin 14.6 g/dL (14.0-18.0); Mean Corpuscular Hemoglobin 32.8 pg (27.0-31.0); Mean Platelet Volume 8.5 fL (7.4-10.4); Platelet Count 94 thou/uL (130-400); RBC Distribution Width 12.1 % (11.5-14.5); Red Blood Cell (RBC) Count 4.45 mill/uL (4.70-6.10); White Blood Cell (WBC) Count 6.2 thou/uL (4.8-10.8)
[2021-03-27] MEDS: Sodium Chloride 0.9% 1,000 ML IV SCH ×2 (06:00→21:43)
[2021-03-27 06:01] LABS: Anion Gap 14 mmol/L (10-20); BUN (Urea Nitrogen) 6 mg/dL (8.4-25.7); Calc. Creatinine Clearance 92 mL/min (70-130); Calcium 9.4 mg/dL (7.8-10.44); Carbon Dioxide 22 mmol/L (23-31); Chloride 105 mmol/L (98-107); Glucose 73 mg/dL (80-115); Potassium 3.7 mmol/L (3.5-5.1); Sodium 137 mmol/L (136-145)
[2021-03-27] MEDS: Cyanocobalamin (Vitamin B-12) 1,000 MCG TAB PO SCH (08:56)
[2021-03-27] MEDS: Nicotine 14 MG PATCH TD SCH (08:56)
[2021-03-27] MEDS: Aspirin 81 mg Enteric Coated Tablet PO SCH (08:56)
[2021-03-27] MEDS: Folic Acid 1 MG TAB PO SCH (08:56)
[2021-03-27] MEDS: Multivitamin W/ Minerals 1 TAB PO SCH (08:56)
[2021-03-27] MEDS: Thiamine 100 MG TAB PO SCH (08:56)
[2021-03-27] MEDS: chlordiazePOXIDE HCl 25 MG CAP PO SCH ×3 (08:57→21:41)
[2021-03-27] MEDS ORDERED: Albuterol Sulfate 2.5 mg/3 ml Neb NEB PRN (09:26)
[2021-03-27] MEDS ORDERED: Vancomycin 1.5 GRAM/300 ML BAG 1.5 GM in Premix Bag 1 BAG IVPB SCH (14:00)
[2021-03-27] MEDS: Atorvastatin Calcium 40 MG TAB PO SCH (21:41)
[2021-03-28] MEDS: VANCOMYCIN 1.25 GM/250 ML BAG 1.25 GM in Premix Bag 1 BAG IVPB SCH ×2 (02:33→14:45)
[2021-03-28 06:30] LABS: Anion Gap 12 mmol/L (10-20); BUN (Urea Nitrogen) 9 mg/dL (8.4-25.7); Calc. Creatinine Clearance 100 mL/min (70-130); Calcium 9.2 mg/dL (7.8-10.44); Carbon Dioxide 23 mmol/L (23-31); Chloride 106 mmol/L (98-107); Glucose 91 mg/dL (80-115); Potassium 3.5 mmol/L (3.5-5.1); Sodium 137 mmol/L (136-145)
[2021-03-28 06:38] LABS: #Eosinphils 0.1 thou/uL (0.0-0.7); #Lymphocytes 1.5 thou/uL (1.20-3.40); #Monocytes 0.8 thou/uL (0.11-0.59); #Neutrophils 3.9 thou/uL (1.40-6.50); %Basophils 0.5 % (0.0-1.0); %Eosinophils 1.8 % (0.0-10.0); %Lymphocytes 24.1 % (21.0-51.0); %Monocytes 12.9 % (0.0-10.0); %Neutrophils 60.6 % (42.0-75.0); Hemoglobin 14.4 g/dL (14.0-18.0); Mean Corpuscular HGB CONC 31.6 g/dL (32.0-36.0); Mean Corpuscular Hemoglobin 32.6 pg (27.0-31.0); Mean Platelet Volume 8.6 fL (7.4-10.4); Platelet Count 116 thou/uL (130-400); RBC Distribution Width 12.1 % (11.5-14.5); Red Blood Cell (RBC) Count 4.41 mill/uL (4.70-6.10); White Blood Cell (WBC) Count 6.4 thou/uL (4.8-10.8)
[2021-03-28] MEDS: Multivitamin W/ Minerals 1 TAB PO SCH (08:18)
[2021-03-28] MEDS: Aspirin 81 mg Enteric Coated Tablet PO SCH (08:18)
[2021-03-28] MEDS: Folic Acid 1 MG TAB PO SCH (08:18)
[2021-03-28] MEDS: Thiamine 100 MG TAB PO SCH (08:19)
[2021-03-28] MEDS: Cyanocobalamin (Vitamin B-12) 1,000 MCG TAB PO SCH (08:19)
[2021-03-28] MEDS: Nicotine 14 MG PATCH TD SCH (08:19)
[2021-03-28] MEDS: chlordiazePOXIDE HCl 25 MG CAP PO SCH ×2 (08:58→14:45)
[2021-03-28] MEDS: Sodium Chloride 0.9% 1,000 ML IV SCH (10:22)
[2021-03-28] MEDS ORDERED: Clopidogrel Bisulfate 75 MG TAB PO SCH (14:00)
[2021-03-28 16:00] VITALS: BP 115/77; TEMP 98.3
[2021-03-29] MEDS ORDERED: Clopidogrel Bisulfate 75 MG TAB PO SCH (09:00)
== END 2021-03-28 17:33 | DRG 69 ==
LOC: ERS 17:34 → ERHOLD 22:17 → NEURO 03-24 17:07 → OBSVTOIN 03-27 14:06
PROVIDERS: ADMIT Internal Medicine; ATTEND Family Medicine
DX: G45.9 Transient cerebral ischemic attack, unspecified (principal); M50.00 Cervical disc disorder with myelopathy, unspecified cervical region; J44.1 Chronic obstructive pulmonary disease with (acute) exacerbation; Z20.822 Contact with and (suspected) exposure to COVID-19; F10.120 Alcohol abuse with intoxication, uncomplicated; D53.9 Nutritional anemia, unspecified; R13.10 Dysphagia, unspecified; F41.9 Anxiety disorder, unspecified; I25.10 Atherosclerotic heart disease of native coronary artery without angina pectoris; E11.51 Type 2 diabetes mellitus with diabetic peripheral angiopathy without gangrene; F25.0 Schizoaffective disorder, bipolar type; K21.9 Gastro-esophageal reflux disease without esophagitis; F17.210 Nicotine dependence, cigarettes, uncomplicated; I10 Essential (primary) hypertension; S81.809A Unspecified open wound, unspecified lower leg, initial encounter; X58.XXXA Exposure to other specified factors, initial encounter; Z95.1 Presence of aortocoronary bypass graft; Z89.512 Acquired absence of left leg below knee; Z89.421 Acquired absence of other right toe(s); Z71.6 Tobacco abuse counseling; Z79.84 Long term (current) use of oral hypoglycemic drugs; Z79.51 Long term (current) use of inhaled steroids; Z79.52 Long term (current) use of systemic steroids; Z79.899 Other long term (current) drug therapy
CPT/HCPCS: 36415; 36416; 70450; 70551; 71045; 74220; 74230; 80048; 80053; 80061; 80306; 80307; 81003; 83735; 84100; 84484; 85025; 86140; 86780; 90471; 90732; 93005; 93306; 93880; 96374; G0009; G0378; J3370; J3411; J3475; J7050; U0003; U0005

== ENCOUNTER 2021-08-09 15:46 | Emergency (ER) | payer OTHER ==
[2021-08-09 17:44] LABS: #Eosinphils 0.1 thou/uL (0.0-0.7); #Lymphocytes 1.2 thou/uL (1.20-3.40); #Monocytes 0.8 thou/uL (0.11-0.59); %Basophils 0.5 % (0.0-1.0); %Eosinophils 1.4 % (0.0-10.0); %Lymphocytes 20.2 % (21.0-51.0); %Monocytes 12.4 % (0.0-10.0); %Neutrophils 65.5 % (42.0-75.0); Hemoglobin 16.1 g/dL (14.0-18.0); Mean Corpuscular HGB CONC 32.1 g/dL (32.0-36.0); Mean Corpuscular Hemoglobin 32.3 pg (27.0-31.0); Mean Platelet Volume 8.1 fL (7.4-10.4); Platelet Count 144 thou/uL (130-400); RBC Distribution Width 13.5 % (11.5-14.5); Red Blood Cell (RBC) Count 4.98 mill/uL (4.70-6.10); White Blood Cell (WBC) Count 6.1 thou/uL (4.8-10.8)
[2021-08-09 19:46] LABS: ALT (SGPT) 64 U/L (8-55); AST (SGOT) 90 U/L (5-34); Albumin 4.2 g/dL (3.4-4.8); Alkaline Phosphatase 63 U/L (40-110); Anion Gap 19 mmol/L (10-20); BUN (Urea Nitrogen) 6 mg/dL (8.4-25.7); Bilirubin, Total 0.6 mg/dL (0.2-1.2); Calc. Creatinine Clearance 0 mL/min (70-130); Calcium 9.4 mg/dL (7.8-10.44); Carbon Dioxide 22 mmol/L (23-31); Chloride 101 mmol/L (98-107); Globulin 3.9 g/dL (2.4-3.5); Glucose 80 mg/dL (80-115); Lipase 27 U/L (8-78); Potassium 3.9 mmol/L (3.5-5.1); Protein, Total 8.1 g/dL (5.8-8.1); Sodium 138 mmol/L (136-145)
== END 2021-08-09 22:09 | disposition home or self-care (01) ==
LOC: ERS 15:46
DX: R07.89 Other chest pain (principal); I10 Essential (primary) hypertension; E78.5 Hyperlipidemia, unspecified; E11.9 Type 2 diabetes mellitus without complications; K21.9 Gastro-esophageal reflux disease without esophagitis; J44.9 Chronic obstructive pulmonary disease, unspecified; F17.210 Nicotine dependence, cigarettes, uncomplicated
CPT/HCPCS: 36415; 71045; 80053; 82550; 83690; 84484; 85025; 93005

== ENCOUNTER 2021-09-08 13:13 | Inpatient (IN) | payer OTHER ==
[2021-09-08 14:24] LABS: Hemoglobin 15.4 g/dL (14.0-18.0); Mean Corpuscular Hemoglobin 33.4 pg (27.0-31.0); Mean Platelet Volume 8.4 fL (7.4-10.4); Platelet Count 232 thou/uL (130-400); Red Blood Cell (RBC) Count 4.63 mill/uL (4.70-6.10); White Blood Cell (WBC) Count 9.2 thou/uL (4.8-10.8)
[2021-09-08 14:30] LABS: INR-International Normal Ratio 0.9; PTT 30.1 sec (22.9-36.1); Prothrombin Time 12.4 sec (12.0-14.7)
[2021-09-08 14:40] LABS: ALT (SGPT) 39 U/L (8-55); AST (SGOT) 38 U/L (5-34); Acetaminophen Less than 10.0 mcg/mL (10.0-30.0); Albumin 3.4 g/dL (3.4-4.8); Alcohol Less than 10 mg/dL (Less than 10); Alkaline Phosphatase 66 U/L (40-110); Anion Gap 21 mmol/L (10-20); BUN (Urea Nitrogen) 67 mg/dL (8.4-25.7); Calc. Creatinine Clearance 0 mL/min (70-130); Calcium 8.8 mg/dL (7.8-10.44); Carbon Dioxide 27 mmol/L (23-31); Chloride 88 mmol/L (98-107); Globulin 3.9 g/dL (2.4-3.5); Glucose 102 mg/dL (80-115); Magnesium 2.6 mg/dL (1.6-2.6); Protein, Total 7.3 g/dL (5.8-8.1); Salicylate Less than 8.0 mg/dL (15.0-30.0); Sodium 133 mmol/L (136-145)
[2021-09-08 14:45] LABS: Band 3 % (5-11); Lymphocytes 16 % (21-51); MDiff Complete? YES; Macrocytosis SLIGHT = 6-15 cells (100X) (0-5/hpf); Monocytes 22 % (0-10); Neutrophil 58 % (42-75); Platelet Morphology Comment Appears Adequate; Polychromasia SLIGHT = 2-3 cells (100X) (0-2/hpf); Reactive Lymphocytes 1 % (0-10)
[2021-09-08] MEDS ORDERED: Multivitamins, Adult 10 ML, Thiamine HCl 100 MG, Folic Acid 1 MG in Dextrose 5 %-0.45 %... IV SCH (14:45)
[2021-09-08 14:57] LABS: CKMB 2.3 ng/mL (0-6.6)
[2021-09-08] MEDS ORDERED: Pantoprazole 40 MG VIAL ONE (16:12)
[2021-09-08 16:44] LABS: Bacteria/HPF 2+ HPF (None Seen); Bilirubin Negative (Negative); Blood, Urine 3+ (Negative); Clarity Clear (Clear); Glucose, Urine (Dipstick) Normal (Negative); Ketone, Urine Trace mg/dL (Negative); Leukocyte 500 Leu/uL (Negative); Nitrite Negative (Negative); Protein, Urine (Dipstick) 30 mg/dL (Neg-Trace); RBC/HPF 0-3 HPF (0-3); Specific Gravity, Urine 1.029 (1.002-1.036); Squamous Epithelial 0-3 HPF (0-3); Urobilinogen Normal mg/dL (Less than 2); WBC/HPF 21-50 HPF (0-3); pH, Urine 5.5 (5.0-9.0)
[2021-09-08 16:51] LABS: Amphetamine Not Detected (NotDetected); Barbiturates Screen Not Detected (NotDetected); Benzodiazepine Screen Not Detected (NotDetected); Cocaine Metabolite Screen Not Detected (NotDetected); Methadone Not Detected (NotDetected); Methamphetamine Not Detected (NotDetected); Opiate Screen Not Detected (NotDetected); Oxycodone Screen Not Detected (NotDetected); Phencyclidine (PCP) Not Detected (NotDetected); THC/Cannabinoid Screen Not Detected (NotDetected); Tricyclic Screen Not Detected (NotDetected)
[2021-09-08] MEDS ORDERED: Ondansetron ODT 4 MG TAB SL PRN (19:45)
[2021-09-08] MEDS ORDERED: Ondansetron PF 4 MG/2 ML Vial IVP PRN ×2 (19:45→20:03)
[2021-09-08] MEDS ORDERED: Acetaminophen 325 MG TAB PO PRN ×2 (19:45→20:03)
[2021-09-08] MEDS ORDERED: Ondansetron ODT 4 MG TAB PO PRN (20:03)
[2021-09-08] MEDS ORDERED: Calcium Carbonate 500 MG ChewTAB PO PRN (20:03)
[2021-09-08] MEDS ORDERED: Senokot S 8.6-50 MG TAB PO PRN (20:03)
[2021-09-08] MEDS ORDERED: Lorazepam 1 MG TAB PO PRN (20:08)
[2021-09-08] MEDS ORDERED: Sodium Chloride 0.9% 1,000 ML IV SCH (20:15)
[2021-09-08] MEDS ORDERED: Electrolyte Replacement Protocol 1 EACH FS PRN (20:15)
[2021-09-08] MEDS: Pantoprazole 40 MG VIAL IVP SCH (21:30)
[2021-09-08] MEDS: Thiamine HCl 200 MG/2 ML VIAL SLOW IVP SCH (21:30)
[2021-09-08] MEDS: cefTRIAXone\\ROCEPHIN 1 GM in Sodium Chloride 0.9% 100 ML IVPB SCH (21:31)
[2021-09-08] MEDS: Multivit, Therapeutic 1 TAB PO SCH (21:31)
[2021-09-08] MEDS: Folic Acid 1 MG TAB PO SCH (21:31)
[2021-09-08] MEDS ORDERED: Potassium Chloride 20 MEQ TAB PO SCH (23:00)
[2021-09-09 04:47] LABS: Hemoglobin 13.5 g/dL (14.0-18.0); Mean Corpuscular Hemoglobin 32.3 pg (27.0-31.0); Mean Platelet Volume 8.2 fL (7.4-10.4); Platelet Count 257 thou/uL (130-400); RBC Distribution Width 12.1 % (11.5-14.5); White Blood Cell (WBC) Count 8.4 thou/uL (4.8-10.8)
[2021-09-09 05:01] LABS: ALT (SGPT) 28 U/L (8-55); AST (SGOT) 36 U/L (5-34); Albumin 2.8 g/dL (3.4-4.8); Alkaline Phosphatase 54 U/L (40-110); Anion Gap 14 mmol/L (10-20); BUN (Urea Nitrogen) 47 mg/dL (8.4-25.7); Bilirubin, Total 0.8 mg/dL (0.2-1.2); Calc. Creatinine Clearance 27 mL/min (70-130); Calcium 8.9 mg/dL (7.8-10.44); Carbon Dioxide 25 mmol/L (23-31); Chloride 96 mmol/L (98-107); Glucose 94 mg/dL (80-115); Iron 48 ug/dL (65-175); Iron Binding Capacity, Total 185 mcg/dL (261-462); Magnesium 2.1 mg/dL (1.6-2.6); Phosphorus 2.8 mg/dL (2.3-4.7); Potassium 3.4 mmol/L (3.5-5.1); Protein, Total 6.8 g/dL (5.8-8.1); Sodium 132 mmol/L (136-145)
[2021-09-09 05:09] LABS: Band 4 % (5-11); Eosinophils 1 % (0-10); Lymphocytes 16 % (21-51); MDiff Complete? YES; Monocytes 26 % (0-10); Myelocyte 1 % (0-0); Neutrophil 52 % (42-75)
[2021-09-09] MEDS ORDERED: Potassium Chloride 20 MEQ TAB PO SCH (08:00)
[2021-09-09] MEDS: Pantoprazole 40 MG VIAL IVP SCH ×2 (08:58→22:14)
[2021-09-09] MEDS: NS 0.9% w/ 20 MEQ KCL 1,000 ML/1,000 ML BAG IV SCH (11:57)
[2021-09-09] MEDS: Multivit, Therapeutic 1 TAB PO SCH (22:13)
[2021-09-09] MEDS: cefTRIAXone\\ROCEPHIN 1 GM in Sodium Chloride 0.9% 100 ML IVPB SCH (22:13)
[2021-09-09] MEDS: Folic Acid 1 MG TAB PO SCH (22:13)
[2021-09-09] MEDS: Thiamine HCl 200 MG/2 ML VIAL SLOW IVP SCH (22:28)
[2021-09-10] MEDS: NS 0.9% w/ 20 MEQ KCL 1,000 ML/1,000 ML BAG IV SCH ×2 (02:15→14:53)
[2021-09-10 05:09] LABS: ALT (SGPT) 21 U/L (8-55); AST (SGOT) 25 U/L (5-34); Albumin 2.7 g/dL (3.4-4.8); Alkaline Phosphatase 62 U/L (40-110); Anion Gap 12 mmol/L (10-20); BUN (Urea Nitrogen) 37 mg/dL (8.4-25.7); Bilirubin, Total 0.4 mg/dL (0.2-1.2); Calc. Creatinine Clearance 31 mL/min (70-130); Calcium 8.9 mg/dL (7.8-10.44); Carbon Dioxide 26 mmol/L (23-31); Chloride 101 mmol/L (98-107); Globulin 3.7 g/dL (2.4-3.5); Glucose 94 mg/dL (80-115); Potassium 3.3 mmol/L (3.5-5.1); Protein, Total 6.4 g/dL (5.8-8.1); Sodium 136 mmol/L (136-145)
[2021-09-10 06:07] LABS: Band 7 % (5-11); Eosinophils 1 % (0-10); Hemoglobin 13.8 g/dL (14.0-18.0); Lymphocytes 17 % (21-51); MDiff Complete? YES; Mean Corpuscular Hemoglobin 33.9 pg (27.0-31.0); Mean Platelet Volume 7.9 fL (7.4-10.4); Monocytes 25 % (0-10); Neutrophil 50 % (42-75); Platelet Count 301 thou/uL (130-400); RBC Distribution Width 11.9 % (11.5-14.5); Red Blood Cell (RBC) Count 4.07 mill/uL (4.70-6.10); White Blood Cell (WBC) Count 10.2 thou/uL (4.8-10.8)
[2021-09-10] MEDS ORDERED: Potassium Chloride 20 MEQ TAB PO SCH (08:00)
[2021-09-10] MEDS: Pantoprazole 40 MG VIAL IVP SCH ×2 (08:43→21:00)
[2021-09-10] MEDS: Potassium Chloride 20 MEQ in Premix Bag 1 BAG IVPB SCH ×2 (08:44→14:52)
[2021-09-10] MEDS ORDERED: PROPOFOL 200 MG/20 ML VIAL ONE (13:06)
[2021-09-10] MEDS ORDERED: Lidocaine 1% PF 5 ML VIAL ONE (13:06)
[2021-09-10] MEDS: Multivit, Therapeutic 1 TAB PO SCH (20:59)
[2021-09-10] MEDS: Folic Acid 1 MG TAB PO SCH (20:59)
[2021-09-10] MEDS: Thiamine HCl 200 MG/2 ML VIAL SLOW IVP SCH (21:00)
[2021-09-10] MEDS: cefTRIAXone\\ROCEPHIN 1 GM in Sodium Chloride 0.9% 100 ML IVPB SCH (21:00)
[2021-09-11 05:14] LABS: #Eosinphils 0.1 thou/uL (0.0-0.7); #Lymphocytes 1.6 thou/uL (1.20-3.40); #Monocytes 1.6 thou/uL (0.11-0.59); #Neutrophils 7.4 thou/uL (1.40-6.50); %Basophils 0.4 % (0.0-1.0); %Eosinophils 0.7 % (0.0-10.0); %Lymphocytes 15.1 % (21.0-51.0); %Monocytes 14.9 % (0.0-10.0); %Neutrophils 68.9 % (42.0-75.0); Hemoglobin 12.4 g/dL (14.0-18.0); Mean Corpuscular HGB CONC 31.8 g/dL (32.0-36.0); Mean Corpuscular Hemoglobin 32.6 pg (27.0-31.0); Mean Platelet Volume 7.4 fL (7.4-10.4); Platelet Count 373 thou/uL (130-400); Red Blood Cell (RBC) Count 3.79 mill/uL (4.70-6.10); White Blood Cell (WBC) Count 10.8 thou/uL (4.8-10.8)
[2021-09-11 05:43] LABS: Anion Gap 11 mmol/L (10-20); BUN (Urea Nitrogen) 27 mg/dL (8.4-25.7); Calc. Creatinine Clearance 35 mL/min (70-130); Calcium 8.7 mg/dL (7.8-10.44); Carbon Dioxide 25 mmol/L (23-31); Chloride 104 mmol/L (98-107); Glucose 148 mg/dL (80-115); Potassium 3.6 mmol/L (3.5-5.1); Sodium 136 mmol/L (136-145)
[2021-09-11] MEDS: NS 0.9% w/ 20 MEQ KCL 1,000 ML/1,000 ML BAG IV SCH ×2 (06:31→10:38)
[2021-09-11] MEDS: Pantoprazole 40 MG VIAL IVP SCH ×2 (07:30→22:02)
[2021-09-11] MEDS ORDERED: Lorazepam 0.5 MG TAB PO PRN (10:08)
[2021-09-11] MEDS: Thiamine 100 MG TAB PO SCH (22:01)
[2021-09-11] MEDS: Multivit, Therapeutic 1 TAB PO SCH (22:01)
[2021-09-11] MEDS: Folic Acid 1 MG TAB PO SCH (22:01)
[2021-09-12] MEDS: NS 0.9% w/ 20 MEQ KCL 1,000 ML/1,000 ML BAG IV SCH ×2 (00:30→15:17)
[2021-09-12] MEDS ORDERED: Dicyclomine 10 MG CAP PO SCH (00:30)
[2021-09-12 07:19] LABS: #Eosinphils 0.1 thou/uL (0.0-0.7); #Lymphocytes 1.8 thou/uL (1.20-3.40); #Monocytes 1.7 thou/uL (0.11-0.59); #Neutrophils 9.5 thou/uL (1.40-6.50); %Basophils 0.4 % (0.0-1.0); %Eosinophils 0.6 % (0.0-10.0); %Lymphocytes 13.6 % (21.0-51.0); %Neutrophils 72.5 % (42.0-75.0); Hemoglobin 12.5 g/dL (14.0-18.0); Mean Corpuscular HGB CONC 32.7 g/dL (32.0-36.0); Mean Corpuscular Hemoglobin 33.3 pg (27.0-31.0); Mean Platelet Volume 7.2 fL (7.4-10.4); Platelet Count 374 thou/uL (130-400); Red Blood Cell (RBC) Count 3.75 mill/uL (4.70-6.10)
[2021-09-12 07:40] LABS: Anion Gap 9 mmol/L (10-20); BUN (Urea Nitrogen) 20 mg/dL (8.4-25.7); Calc. Creatinine Clearance 37 mL/min (70-130); Calcium 8.9 mg/dL (7.8-10.44); Carbon Dioxide 29 mmol/L (23-31); Chloride 104 mmol/L (98-107); Glucose 93 mg/dL (80-115); Magnesium 1.3 mg/dL (1.6-2.6); Phosphorus 2.3 mg/dL (2.3-4.7); Potassium 3.6 mmol/L (3.5-5.1); Sodium 138 mmol/L (136-145)
[2021-09-12] MEDS ORDERED: Magnesium Sulfate In Water 4 GM in Premix Bag 1 BAG IVPB SCH (08:00)
[2021-09-12] MEDS: Pantoprazole 40 MG VIAL IVP SCH ×2 (08:32→21:40)
[2021-09-12] MEDS ORDERED: Clopidogrel Bisulfate 75 MG TAB PO SCH (11:15)
[2021-09-12] MEDS ORDERED: Aspirin 81 mg Enteric Coated Tablet PO SCH (11:15)
[2021-09-12 14:05] VITALS: BMI 17.6
[2021-09-12] MEDS ORDERED: HYDROcodone/Acetaminophen 5/325 mg Tablet PO PRN (16:44)
[2021-09-12] MEDS ORDERED: HumaLOG 300 UNITS/3 ML VIAL SC PRN (16:50)
[2021-09-12] MEDS ORDERED: Dextrose 50% Abboject 50 ML SYRINGE SLOW IVP PRN (16:50)
[2021-09-12] MEDS ORDERED: Dextrose 5% in Water 1,000 ML IV PRN (16:50)
[2021-09-12] MEDS: Mometasone 100 MCG/Formoterol 5 MCG 120 PUFF INHALER INH SCH (18:06)
[2021-09-12] MEDS: Gabapentin 300 MG CAP PO SCH (20:44)
[2021-09-12] MEDS: Multivit, Therapeutic 1 TAB PO SCH (20:44)
[2021-09-12] MEDS: Thiamine 100 MG TAB PO SCH (20:45)
[2021-09-12] MEDS: Folic Acid 1 MG TAB PO SCH (20:45)
[2021-09-12] MEDS: Atorvastatin Calcium 40 MG TAB PO SCH (20:45)
[2021-09-12] MEDS: Aripiprazole 15 MG TAB PO SCH (20:50)
[2021-09-12] MEDS: Floranex 1 GM Packet PO SCH (20:50)
[2021-09-13] MEDS: NS 0.9% w/ 20 MEQ KCL 1,000 ML/1,000 ML BAG IV SCH ×3 (02:55→17:34)
[2021-09-13 07:01] LABS: Anion Gap 14 mmol/L (10-20); BUN (Urea Nitrogen) 22 mg/dL (8.4-25.7); Calc. Creatinine Clearance 40 mL/min (70-130); Calcium 8.9 mg/dL (7.8-10.44); Carbon Dioxide 22 mmol/L (23-31); Chloride 104 mmol/L (98-107); Glucose 110 mg/dL (80-115); Magnesium 1.7 mg/dL (1.6-2.6); Potassium 4.1 mmol/L (3.5-5.1); Sodium 136 mmol/L (136-145)
[2021-09-13 07:09] LABS: #Eosinphils 0.1 thou/uL (0.0-0.7); #Lymphocytes 1.6 thou/uL (1.20-3.40); #Monocytes 1.1 thou/uL (0.11-0.59); #Neutrophils 9.1 thou/uL (1.40-6.50); %Basophils 0.3 % (0.0-1.0); %Eosinophils 1.1 % (0.0-10.0); %Lymphocytes 13.4 % (21.0-51.0); %Monocytes 8.8 % (0.0-10.0); %Neutrophils 76.4 % (42.0-75.0); Hemoglobin 12.7 g/dL (14.0-18.0); Mean Corpuscular HGB CONC 31.6 g/dL (32.0-36.0); Mean Corpuscular Hemoglobin 32.3 pg (27.0-31.0); Mean Platelet Volume 7.5 fL (7.4-10.4); Platelet Count 377 thou/uL (130-400); RBC Distribution Width 12.2 % (11.5-14.5); Red Blood Cell (RBC) Count 3.93 mill/uL (4.70-6.10)
[2021-09-13] MEDS ORDERED: Glimepiride 1 MG TAB PO SCH (08:00)
[2021-09-13] MEDS ORDERED: Clopidogrel Bisulfate 75 MG TAB PO SCH (09:00)
[2021-09-13] MEDS ORDERED: Aspirin 81 mg Enteric Coated Tablet PO SCH (09:00)
[2021-09-13] MEDS ORDERED: Fluticasone Propionate Nasal Spray 16 gm Bottle NASAL SCH (09:00)
[2021-09-13] MEDS ORDERED: Citalopram 20 MG TAB PO SCH (09:00)
[2021-09-13] MEDS ORDERED: Magnesium 2 GM/50 ML(in water) 2 GM in Premix Bag 1 BAG IVPB SCH (09:00)
[2021-09-13] MEDS: Gabapentin 300 MG CAP PO SCH ×3 (09:30→20:47)
[2021-09-13] MEDS: Sucralfate 1 GM TAB PO SCH ×2 (09:30→17:31)
[2021-09-13] MEDS: Pantoprazole 40 MG VIAL IVP SCH ×2 (09:36→20:50)
[2021-09-13] MEDS: Mometasone 100 MCG/Formoterol 5 MCG 120 PUFF INHALER INH SCH ×2 (10:47→18:48)
[2021-09-13] MEDS: Multivit, Therapeutic 1 TAB PO SCH (20:47)
[2021-09-13] MEDS: Thiamine 100 MG TAB PO SCH (20:47)
[2021-09-13] MEDS: Folic Acid 1 MG TAB PO SCH (20:47)
[2021-09-13] MEDS: Atorvastatin Calcium 40 MG TAB PO SCH (20:47)
[2021-09-13] MEDS: Floranex 1 GM Packet PO SCH (20:49)
[2021-09-13] MEDS: Aripiprazole 15 MG TAB PO SCH (20:49)
[2021-09-13 20:57] VITALS: BP 126/69; TEMP 98.1
[2021-09-14] MEDS: Mometasone 100 MCG/Formoterol 5 MCG 120 PUFF INHALER INH SCH (07:28)
== END 2021-09-14 08:08 | disposition home or self-care (01) | DRG 377 ==
LOC: ERS 13:13 → 2NO 15:59 → OBSVTOIN 19:59 → T4-B 09-11 12:33
PROVIDERS: ADMIT Internal Medicine; ATTEND Family Medicine
PROC: 0DB78ZX Excision of Stomach, Pylorus, Via Natural or Artificial Opening Endoscopic, Diagnostic (ICD-10-PCS; principal; 2021-09-10)
DX: K29.81 Duodenitis with bleeding (principal); E43 Unspecified severe protein-calorie malnutrition; N28.0 Ischemia and infarction of kidney; N39.0 Urinary tract infection, site not specified; N17.9 Acute kidney failure, unspecified; D62 Acute posthemorrhagic anemia; Z68.1 Body mass index [BMI] 19.9 or less, adult; Z20.822 Contact with and (suspected) exposure to COVID-19; F17.210 Nicotine dependence, cigarettes, uncomplicated; F10.20 Alcohol dependence, uncomplicated; I10 Essential (primary) hypertension; I25.10 Atherosclerotic heart disease of native coronary artery without angina pectoris; E78.5 Hyperlipidemia, unspecified; J44.9 Chronic obstructive pulmonary disease, unspecified; K21.9 Gastro-esophageal reflux disease without esophagitis; F20.9 Schizophrenia, unspecified; F31.9 Bipolar disorder, unspecified; F41.9 Anxiety disorder, unspecified; E11.51 Type 2 diabetes mellitus with diabetic peripheral angiopathy without gangrene; K21.00 Gastro-esophageal reflux disease with esophagitis, without bleeding; K44.9 Diaphragmatic hernia without obstruction or gangrene; K29.70 Gastritis, unspecified, without bleeding; E87.6 Hypokalemia; Z89.512 Acquired absence of left leg below knee; Z79.899 Other long term (current) drug therapy; Z79.84 Long term (current) use of oral hypoglycemic drugs
CPT/HCPCS: 36415; 36416; 71045; 74177; 80048; 80053; 80306; 80307; 81003; 81015; 82140; 82553; 82728; 83540; 83550; 83605; 83690; 83735; 83880; 84100; 84484; 85025; 85610; 85730; 86850; 86900; 86901; 87040; 87086; 88305; 93005; 96361; 96374; 96375; C9113; J0696; J2704; J3411; J3475; J3480; J3490; J7042; J7050; Q9967; U0003; U0005

== ENCOUNTER 2022-04-25 19:44 | Observation (INO) | payer OTHER, MEDICAID ==
[2022-04-25 21:05] LABS: #Basophils 0.1 thou/uL (0.0-0.2); #Lymphocytes 2.1 thou/uL (1.20-3.40); #Monocytes 0.6 thou/uL (0.11-0.59); #Neutrophils 2.8 thou/uL (1.40-6.50); %Basophils 1.5 % (0.0-1.0); %Eosinophils 0.7 % (0.0-10.0); %Lymphocytes 37.1 % (21.0-51.0); %Monocytes 10.1 % (0.0-10.0); %Neutrophils 50.5 % (42.0-75.0); Hemoglobin 15.1 g/dL (14.0-18.0); Mean Corpuscular HGB CONC 33.5 g/dL (32.0-36.0); Mean Corpuscular Hemoglobin 33.4 pg (27.0-31.0); Mean Corpuscular Volume 99.8 fl (78.0-98.0); Mean Platelet Volume 6.9 fL (7.4-10.4); Platelet Count 224 10x3/uL (130-400); RBC Distribution Width 11.7 % (11.5-14.5); Red Blood Cell (RBC) Count 4.52 mill/uL (4.70-6.10); White Blood Cell (WBC) Count 5.6 10x3/uL (4.8-10.8)
[2022-04-25 21:25] LABS: ALT (SGPT) 22 U/L (8-55); AST (SGOT) 48 U/L (5-34); Albumin 4.1 g/dL (3.4-4.8); Alkaline Phosphatase 58 U/L (40-110); Anion Gap 21 mmol/L (10-20); BUN (Urea Nitrogen) 5 mg/dL (8.4-25.7); Bilirubin, Total 0.3 mg/dL (0.2-1.2); CK (CPK) 424 U/L (30-200); Calc. Creatinine Clearance 0 mL/min (70-130); Calcium 9.4 mg/dL (7.8-10.44); Carbon Dioxide 19 mmol/L (23-31); Chloride 101 mmol/L (98-107); Estimated GFR 90; Globulin 3.9 g/dL (2.4-3.5); Glucose 84 mg/dL (80-115); Potassium 4.4 mmol/L (3.5-5.1); Sodium 137 mmol/L (136-145)
[2022-04-25 21:51] LABS: Bacteria/HPF None Seen HPF (None Seen); Bilirubin Negative (Negative); Blood, Urine Negative (Negative); Clarity Clear (Clear); Glucose, Urine (Dipstick) Normal (Negative); Ketone, Urine Negative (Negative); Leukocyte 75 Leu/uL (Negative); Nitrite Negative (Negative); Protein, Urine (Dipstick) Negative (Neg-Trace); RBC/HPF 0-3 HPF (0-3); Specific Gravity, Urine 1.004 (1.002-1.036); Squamous Epithelial 0-3 HPF (0-3); Urobilinogen Normal mg/dL (Less than 2); WBC/HPF 0-3 HPF (0-3); pH, Urine 5.5 (5.0-9.0)
[2022-04-26] MEDS ORDERED: Dextrose 50% Abboject 50 ML SYRINGE SLOW IVP PRN (00:04)
[2022-04-26] MEDS ORDERED: HumaLOG 300 UNITS/3 ML VIAL SC PRN ×2 (00:04)
[2022-04-26] MEDS ORDERED: Ondansetron PF 4 MG/2 ML Vial IVP PRN (00:04)
[2022-04-26] MEDS ORDERED: Dextrose 5% in Water 1,000 ML IV PRN (00:04)
[2022-04-26] MEDS ORDERED: Ondansetron ODT 4 MG TAB PO PRN ×2 (00:04→09:55)
[2022-04-26] MEDS ORDERED: Acetaminophen 325 MG TAB PO PRN (00:04)
[2022-04-26] MEDS ORDERED: Acetaminophen 650 MG Suppository PR PRN (00:04)
[2022-04-26 00:15] LABS: Lactic Acid 3.4 mmol/L (0.5-2.2)
[2022-04-26] MEDS ORDERED: Sodium Chloride 0.9% 1,000 ML IV SCH (00:45)
[2022-04-26] MEDS ORDERED: Ipratropium/Albuterol 3 ML NEB NEB PRN (00:58)
[2022-04-26] MEDS: Sodium Chloride 0.9% 1,000 ML IV SCH ×3 (03:00→21:57)
[2022-04-26 04:54] LABS: #Basophils 0.1 thou/uL (0.0-0.2); #Eosinphils 0.1 thou/uL (0.0-0.7); #Lymphocytes 1.4 thou/uL (1.20-3.40); #Monocytes 0.6 thou/uL (0.11-0.59); #Neutrophils 2.8 thou/uL (1.40-6.50); %Basophils 1.1 % (0.0-1.0); %Lymphocytes 29.3 % (21.0-51.0); %Monocytes 11.5 % (0.0-10.0); Hemoglobin 12.5 g/dL (14.0-18.0); Mean Corpuscular HGB CONC 33.5 g/dL (32.0-36.0); Mean Corpuscular Hemoglobin 33.4 pg (27.0-31.0); Mean Corpuscular Volume 99.8 fl (78.0-98.0); Platelet Count 239 10x3/uL (130-400); RBC Distribution Width 11.8 % (11.5-14.5); Red Blood Cell (RBC) Count 3.73 mill/uL (4.70-6.10); White Blood Cell (WBC) Count 4.9 10x3/uL (4.8-10.8)
[2022-04-26 05:10] LABS: Lactic Acid 3.1 mmol/L (0.5-2.2)
[2022-04-26 05:12] LABS: Anion Gap 15 mmol/L (10-20); BUN (Urea Nitrogen) 6 mg/dL (8.4-25.7); CK (CPK) 309 U/L (30-200); Calc. Creatinine Clearance 61 mL/min (70-130); Calcium 8.5 mg/dL (7.8-10.44); Carbon Dioxide 21 mmol/L (23-31); Chloride 108 mmol/L (98-107); Estimated GFR 95; Glucose 72 mg/dL (80-115); Potassium 4.1 mmol/L (3.5-5.1); Sodium 140 mmol/L (136-145)
[2022-04-26 07:23] LABS: SARS-CoV-2 NAA Rapid Test Not Detected (NotDetected)
[2022-04-26 08:17] LABS: Lactic Acid 3.8 mmol/L (0.5-2.2)
[2022-04-26] MEDS ORDERED: Ondansetron PF 4 MG/2 ML Vial ONE (09:19)
[2022-04-26] MEDS ORDERED: HYDROcodone/Acetaminophen 5/325 mg Tablet PO PRN (09:55)
[2022-04-26] MEDS ORDERED: Albuterol 200 PUFF (6.7GM INHALER) INH PRN (09:55)
[2022-04-26 10:13] LABS: Hemoglobin A1c 4.9 % (4.0-6.0)
[2022-04-26 10:21] LABS: Magnesium 1.7 mg/dL (1.6-2.6)
[2022-04-26] MEDS ORDERED: Sucralfate 1 GM TAB PO SCH (12:00)
[2022-04-26] MEDS ORDERED: HYDROcodone/Acetaminophen 5/325 mg Tablet ONE (14:10)
[2022-04-26] MEDS ORDERED: LACTOBACILLUS COMBO NO 10 PO SCH (15:00)
[2022-04-26] MEDS: Gabapentin 300 MG CAP PO SCH ×2 (15:30→22:01)
[2022-04-26] MEDS: Saccharomyces boulardii 250 MG CAP PO SCH ×2 (15:31→22:04)
[2022-04-26] MEDS: Sucralfate 1 GM TAB PO SCH (17:26)
[2022-04-26] MEDS: Mometasone 100 MCG/Formoterol 5 MCG 120 PUFF INHALER INH SCH (18:49)
[2022-04-26] MEDS ORDERED: Aripiprazole 15 MG TAB PO SCH (21:00)
[2022-04-26] MEDS ORDERED: Simvastatin 10 MG TAB PO SCH (21:00)
[2022-04-26] MEDS ORDERED: Atorvastatin Calcium 40 MG TAB PO SCH (21:00)
[2022-04-26] MEDS ORDERED: Pravastatin Sodium 20 MG TAB PO SCH (21:00)
[2022-04-27] MEDS: Mometasone 100 MCG/Formoterol 5 MCG 120 PUFF INHALER INH SCH (07:10)
[2022-04-27] MEDS ORDERED: Citalopram 20 MG TAB PO SCH (09:00)
[2022-04-27] MEDS ORDERED: Aspirin Chewable 81 MG TAB PO SCH (09:00)
[2022-04-27] MEDS ORDERED: Clopidogrel Bisulfate 75 MG TAB PO SCH (09:00)
[2022-04-27] MEDS ORDERED: Fluticasone Propionate Nasal Spray 16 gm Bottle NASAL SCH ×2 (09:00)
[2022-04-27] MEDS: Saccharomyces boulardii 250 MG CAP PO SCH ×2 (09:28→14:35)
[2022-04-27] MEDS: Gabapentin 300 MG CAP PO SCH ×2 (09:28→14:35)
[2022-04-27] MEDS: Sucralfate 1 GM TAB PO SCH (09:29)
[2022-04-27] MEDS: Sodium Chloride 0.9% 1,000 ML IV SCH (09:29)
[2022-04-27 12:23] VITALS: BP 109/68; TEMP 98.5
[2022-04-27 12:53] VITALS: BMI 17.7
== END 2022-04-27 15:35 | disposition home or self-care (01) ==
LOC: ERS 19:44 → ERHOLD 23:40 → 2NO 04-26 17:17
PROVIDERS: ADMIT Hospitalist; ATTEND Hospitalist
DX: R55 Syncope and collapse (principal); I25.10 Atherosclerotic heart disease of native coronary artery without angina pectoris; I11.9 Hypertensive heart disease without heart failure; F17.210 Nicotine dependence, cigarettes, uncomplicated; E11.10 Type 2 diabetes mellitus with ketoacidosis without coma; J44.9 Chronic obstructive pulmonary disease, unspecified; K21.9 Gastro-esophageal reflux disease without esophagitis; G31.9 Degenerative disease of nervous system, unspecified; I25.3 Aneurysm of heart; I08.3 Combined rheumatic disorders of mitral, aortic and tricuspid valves; Z60.2 Problems related to living alone; Z79.02 Long term (current) use of antithrombotics/antiplatelets; Z79.82 Long term (current) use of aspirin; Z79.84 Long term (current) use of oral hypoglycemic drugs; Z79.899 Other long term (current) drug therapy; Z89.421 Acquired absence of other right toe(s); Z89.512 Acquired absence of left leg below knee; Z95.1 Presence of aortocoronary bypass graft; Z20.822 Contact with and (suspected) exposure to COVID-19
CPT/HCPCS: 70450; 71045; 80048; 80053; 82550 ×2; 82962 ×2; 83036; 83605 ×2; 83735 ×2; 83880; 84443; 84484; 85025 ×2; 93005; 93306; 93880; 94640 ×2; 94664; 96372; 96374; 97116; G0378 ×3; U0002; 36415; 36416; 81003; 81015; J1650; J2405; J7050

== ENCOUNTER 2022-07-19 08:50 | Outpatient (CLI) | payer OTHER, MEDICAID | END 2022-07-19 08:51 | disposition home or self-care (01) | LOC: MRI 08:50 | PROVIDERS: ATTEND Family Medicine | DX: M54.14 Radiculopathy, thoracic region (principal); M46.04 Spinal enthesopathy, thoracic region | CPT/HCPCS: 72072; 72146 ==

== ENCOUNTER 2023-01-08 09:45 | Outpatient (CLI) | payer OTHER, MEDICAID | END 2023-01-08 09:46 | disposition home or self-care (01) | LOC: CT 09:45 → BICCT 09:46 | PROVIDERS: ATTEND Family Medicine Sports Medicine | DX: Z12.2 Encounter for screening for malignant neoplasm of respiratory organs (principal); F17.210 Nicotine dependence, cigarettes, uncomplicated | CPT/HCPCS: 71271 ==

== ENCOUNTER 2023-05-06 14:00 | Day surgery (SDC) | payer OTHER, MEDICAID ==
[2023-05-02 10:08] VITALS: BMI 21.1
[2023-05-06] MEDS ORDERED: PROPOFOL 200 MG/20 ML VIAL ONE (14:45)
[2023-05-06] MEDS ORDERED: Lidocaine 1% PF 5 ML VIAL ONE (14:45)
== END 2023-05-07 16:00 | disposition home or self-care (01) ==
LOC: SDC 14:00
PROVIDERS: ATTEND Internal Medicine Gastroenterology
PROC: 0DJ08ZZ Inspection of Upper Intestinal Tract, Via Natural or Artificial Opening Endoscopic (ICD-10-PCS; principal; 2023-05-06)
DX: K21.9 Gastro-esophageal reflux disease without esophagitis (principal); I10 Essential (primary) hypertension; E78.00 Pure hypercholesterolemia, unspecified; F17.200 Nicotine dependence, unspecified, uncomplicated; J45.909 Unspecified asthma, uncomplicated; Z95.1 Presence of aortocoronary bypass graft; Z79.899 Other long term (current) drug therapy
CPT/HCPCS: J2704

== ENCOUNTER 2023-06-03 16:12 | Inpatient (IN) | payer OTHER, MEDICAID ==
[2023-06-03 16:59] LABS: #Monocytes 0.7 thou/uL (0.11-0.59); #Neutrophils 3.8 thou/uL (1.40-6.50); %Basophils 0.5 % (0.0-1.0); %Eosinophils 0.2 % (0.0-10.0); %Lymphocytes 16.9 % (21.0-51.0); %Monocytes 12.9 % (0.0-10.0); %Neutrophils 69.3 % (42.0-75.0); Hematocrit 43.9 % (42.0-52.0); Hemoglobin 15.1 g/dL (14.0-18.0); Mean Corpuscular HGB CONC 34.4 g/dL (32.0-36.0); Mean Corpuscular Hemoglobin 33.5 pg (27.0-31.0); Mean Corpuscular Volume 97.3 fl (78.0-98.0); Mean Platelet Volume 10.5 fL (7.4-10.4); Platelet Count 155 10x3/uL (130-400); RBC Distribution Width 12.1 % (11.5-14.5); Red Blood Cell (RBC) Count 4.51 mill/uL (4.70-6.10); White Blood Cell (WBC) Count 5.5 10x3/uL (4.8-10.8)
[2023-06-03 17:23] LABS: ALT (SGPT) 89 U/L (8-55); AST (SGOT) 103 U/L (5-34); Albumin 4.4 g/dL (3.4-4.8); Alkaline Phosphatase 75 U/L (40-110); Anion Gap 24 mmol/L (10-20); BUN (Urea Nitrogen) 11 mg/dL (8.4-25.7); Bilirubin, Total 1.1 mg/dL (0.2-1.2); Calc. Creatinine Clearance 0 mL/min (70-130); Calcium 10.3 mg/dL (7.8-10.44); Carbon Dioxide 24 mmol/L (23-31); Chloride 95 mmol/L (98-107); Estimated GFR 70; Globulin 4.1 g/dL (2.4-3.5); Glucose 79 mg/dL (80-115); Lipase 36 U/L (8-78); Potassium 4.3 mmol/L (3.5-5.1); Protein, Total 8.5 g/dL (5.8-8.1); Sodium 139 mmol/L (136-145); Troponin I 0.025 ng/mL (< 0.028)
[2023-06-03] MEDS ORDERED: Ondansetron PF 4 MG/2 ML Vial ONE (17:23)
[2023-06-03] MEDS ORDERED: Magnesium 2 GM/50 ML BAG (IN WATER) ONE (17:23)
[2023-06-03] MEDS ORDERED: Morphine 4 MG/ML VIAL ONE (17:23)
[2023-06-03] MEDS ORDERED: Ipratropium/Albuterol 3 ML NEB ONE (17:23)
[2023-06-03] MEDS ORDERED: methylPREDNISolone Sod Succ/PF 125 MG/2 ML VIAL ONE (17:24)
[2023-06-03 17:58] LABS: Prothrombin Time 12.7 sec (12.0-14.7)
[2023-06-03 17:59] LABS: PTT 32.4 sec (22.9-36.1)
[2023-06-03 18:01] LABS: D-Dimer Test 0.95 mcg/mL (0.27-0.43)
[2023-06-03] MEDS ORDERED: Acetaminophen 325 MG TAB PO PRN (20:25)
[2023-06-03] MEDS ORDERED: Ondansetron PF 4 MG/2 ML Vial IVP PRN (20:25)
[2023-06-03] MEDS ORDERED: Calcium Carbonate 500 MG ChewTAB PO PRN (20:25)
[2023-06-03] MEDS ORDERED: Senokot S 8.6-50 MG TAB PO PRN (20:25)
[2023-06-03] MEDS ORDERED: Azithromycin 500 MG in Sodium Chloride 0.9% 250 ML 250 ML IVPB SCH (20:30)
[2023-06-03] MEDS ORDERED: Ipratropium/Albuterol 3 ML NEB NEB PRN (20:31)
[2023-06-03] MEDS ORDERED: Dextrose 5% in Water 1,000 ML IV PRN (20:34)
[2023-06-03] MEDS ORDERED: Glucagon 1 MG/ML KIT IM PRN (20:34)
[2023-06-03] MEDS ORDERED: Dextrose 50% Abboject 50 ML SYRINGE SLOW IVP PRN (20:34)
[2023-06-03] MEDS ORDERED: HumaLOG 300 UNITS/3 ML VIAL SC PRN (20:34)
[2023-06-03] MEDS ORDERED: Piperacillin/Tazobactam 3.375 GM VIAL ONE (21:12)
[2023-06-03] MEDS ORDERED: Sodium Chloride 0.9% 100 ML ONE (21:12)
[2023-06-03] MEDS: Mometasone 100 MCG/Formoterol 5 MCG 120 PUFF INHALER INH SCH (22:30)
[2023-06-04 00:48] VITALS: BMI 16.0
[2023-06-04] MEDS: Aripiprazole 15 MG TAB PO SCH (01:18)
[2023-06-04] MEDS: Gabapentin 300 MG CAP PO SCH (01:18)
[2023-06-04 01:37] LABS: Troponin I 0.018 ng/mL (< 0.028)
[2023-06-04] MEDS: Sodium Chloride 0.9% 1,000 ML IV SCH (01:51)
[2023-06-04] MEDS: Atorvastatin Calcium 40 MG TAB PO SCH (01:51)
[2023-06-04] MEDS: Cefepime 2 GM in Sodium Chloride 0.9% 100 ML IVPB SCH (05:24)
[2023-06-04 05:34] LABS: #Monocytes 0.2 thou/uL (0.11-0.59); #Neutrophils 3.8 thou/uL (1.40-6.50); %Lymphocytes 8.7 % (21.0-51.0); %Monocytes 4.1 % (0.0-10.0); Hematocrit 39.5 % (42.0-52.0); Hemoglobin 13.9 g/dL (14.0-18.0); Mean Corpuscular HGB CONC 35.2 g/dL (32.0-36.0); Mean Corpuscular Hemoglobin 33.2 pg (27.0-31.0); Mean Platelet Volume 10.2 fL (7.4-10.4); Platelet Count 134 10x3/uL (130-400); RBC Distribution Width 11.7 % (11.5-14.5); Red Blood Cell (RBC) Count 4.19 mill/uL (4.70-6.10); White Blood Cell (WBC) Count 4.4 10x3/uL (4.8-10.8)
[2023-06-04 05:40] LABS: Mean Corpuscular Volume 94.3 fl (78.0-98.0)
[2023-06-04 06:08] LABS: ALT (SGPT) 72 U/L (8-55); AST (SGOT) 64 U/L (5-34); Albumin 4.1 g/dL (3.4-4.8); Alkaline Phosphatase 63 U/L (40-110); Anion Gap 15 mmol/L (10-20); BUN (Urea Nitrogen) 13 mg/dL (8.4-25.7); Bilirubin, Total 1.2 mg/dL (0.2-1.2); CRP (Inflammatory) 2.19 mg/dL (= or < 0.5); Calc. Creatinine Clearance 44 mL/min (70-130); Calcium 9.6 mg/dL (7.8-10.44); Carbon Dioxide 26 mmol/L (23-31); Chloride 94 mmol/L (98-107); Estimated GFR 61; Globulin 3.6 g/dL (2.4-3.5); Glucose 178 mg/dL (80-115); Potassium 4.2 mmol/L (3.5-5.1); Protein, Total 7.7 g/dL (5.8-8.1); Sodium 131 mmol/L (136-145)
[2023-06-04 06:49] LABS: Legionella Urinary Ag Negative (Negative); Strep pneumo Urine Ag NEGATIVE (NEGATIVE)
[2023-06-04] MEDS: Mometasone 100 MCG/Formoterol 5 MCG 120 PUFF INHALER INH SCH (07:17)
[2023-06-04] MEDS: Citalopram 20 MG TAB PO SCH (09:02)
[2023-06-04] MEDS: Sucralfate 1 GM TAB PO SCH (09:02)
[2023-06-04] MEDS: Enoxaparin 40 MG (0.4 mL) SYRINGE SC SCH (09:02)
[2023-06-04] MEDS: methylPREDNISolone Sod Succ 40 MG VIAL IVP SCH (09:02)
[2023-06-04] MEDS: Glimepiride 1 MG TAB PO SCH (09:02)
[2023-06-04] MEDS: HumaLOG 300 UNITS/3 ML VIAL SC PRN (18:46)
[2023-06-04] MEDS: Azithromycin 500 MG in Sodium Chloride 0.9% 250 ML 250 ML IVPB SCH (21:14)
[2023-06-05] MEDS: Enoxaparin 30 MG (0.3 mL) SYRINGE SC SCH (08:35)
[2023-06-05 11:18] VITALS: TEMP 98.3
[2023-06-05 15:12] VITALS: BP 106/66
== END 2023-06-05 16:30 | disposition home or self-care (01) | DRG 177 ==
LOC: ERS 16:12 → SUATTDRO 16:12 → ERHOLD 20:33 → 2SW 06-04 00:12
PROVIDERS: ADMIT Internal Medicine; ATTEND Internal Medicine
DX: J69.0 Pneumonitis due to inhalation of food and vomit (principal); E43 Unspecified severe protein-calorie malnutrition; J96.01 Acute respiratory failure with hypoxia; Z68.1 Body mass index [BMI] 19.9 or less, adult; J44.9 Chronic obstructive pulmonary disease, unspecified; I10 Essential (primary) hypertension; E78.5 Hyperlipidemia, unspecified; E11.9 Type 2 diabetes mellitus without complications; F39 Unspecified mood [affective] disorder; F19.10 Other psychoactive substance abuse, uncomplicated; F10.10 Alcohol abuse, uncomplicated; F41.9 Anxiety disorder, unspecified; F31.9 Bipolar disorder, unspecified; F17.210 Nicotine dependence, cigarettes, uncomplicated; G47.33 Obstructive sleep apnea (adult) (pediatric); Z79.84 Long term (current) use of oral hypoglycemic drugs; Z71.6 Tobacco abuse counseling; Z98.890 Other specified postprocedural states; Z89.512 Acquired absence of left leg below knee
CPT/HCPCS: 36415; 36416; 71045; 71275; 74230; 80053; 83690; 83880; 84145; 84484; 85025; 85379; 85610; 85730; 86140; 87449; 87899; 93005; 94760; 96365; 96366; 96375; J0456; J0692; J1650; J2270; J2405; J2543; J2920; J2930; J3475; J3490; J7050; J7620

== ENCOUNTER 2023-08-11 21:45 | Observation (INO) | payer OTHER, MEDICAID ==
[2023-08-11] MEDS ORDERED: Dexamethasone 10 MG/ML VIAL ONE (22:19)
[2023-08-11] MEDS ORDERED: Albuterol 2.5 MG (0.5 mL) NEB ONE (22:33)
[2023-08-11] MEDS ORDERED: Ipratropium Bromide 2.5 ml Neb ONE (22:34)
[2023-08-11 22:47] LABS: Bacteria/HPF None Seen HPF (None Seen); Bilirubin Negative (Negative); Blood, Urine Negative (Negative); CAUTI Indications for Culture Dysuria,urgency,freq; Clarity Clear (Clear); Glucose, Urine (Dipstick) Normal (Negative); Ketone, Urine Negative (Negative); Leukocyte Negative Leu/uL (Negative); Nitrite Negative (Negative); Protein, Urine (Dipstick) Negative (Neg-Trace); RBC/HPF 0-3 HPF (0-3); Specific Gravity, Urine 1.004 (1.002-1.036); Squamous Epithelial None Seen HPF (0-3); WBC/HPF 0-3 HPF (0-3)
[2023-08-11 22:50] LABS: Urine Culture Reflex No No
[2023-08-11 22:53] LABS: Amphetamine Not Detected (NotDetected); Barbiturates Screen Not Detected (NotDetected); Benzodiazepine Screen Detected (NotDetected); Cocaine Metabolite Screen Not Detected (NotDetected); Methadone Not Detected (NotDetected); Methamphetamine Not Detected (NotDetected); Opiate Screen Not Detected (NotDetected); Oxycodone Screen Not Detected (NotDetected); Phencyclidine (PCP) Not Detected (NotDetected); THC/Cannabinoid Screen Not Detected (NotDetected); Tricyclic Screen Not Detected (NotDetected)
[2023-08-12 00:02] LABS: Influenza A by NAA Not Detected (NotDetected); Influenza B by NAA Not Detected (NotDetected); SARS-CoV-2 NAA Rapid Test Not Detected (NotDetected)
[2023-08-12 01:22] LABS: #Basophils Less than 0.03 10x3/uL (0.0-0.2); #Eosinphils Less than 0.03 10x3/uL (0.0-0.7); %Basophils 0.3 % (0.0-1.0); %Eosinophils 0.3 % (0.0-10.0); %Lymphocytes 8.8 % (21.0-51.0); %Monocytes 3.8 % (0.0-10.0); %Neutrophils 86.5 % (42.0-75.0); Hematocrit 37.3 % (42.0-52.0); Hemoglobin 12.4 g/dL (14.0-18.0); Mean Corpuscular HGB CONC 33.2 g/dL (32.0-36.0); Mean Corpuscular Hemoglobin 33.8 pg (27.0-31.0); Mean Corpuscular Volume 101.6 fL (78.0-98.0); Platelet Count 184 10x3/uL (130-400); RBC Distribution Width 12.8 % (11.5-14.5); Red Blood Cell (RBC) Count 3.67 mill/uL (4.70-6.10)
[2023-08-12 01:28] LABS: Actual Bicarbonate (HCO3v) 25.9 mEq/L (22-28); Base Excess 3.7 mEq/L (-2.0 to +3.0); Calcium, Ionized (venous) 1.08 mmol/L (1.16-1.32); Chloride (VBG) 95 mmol/L (98-106); Hematocrit-VBG 40 % (42.0-52.0); Hemoglobin (Hb) 13.6 g/dL (12.6-17.4); Potassium (VBG) 3.74 mmol/L (3.70-5.30); Sodium 135 mmol/L (133-146); pH (venous) 7.527 (7.32-7.43)
[2023-08-12 01:36] LABS: Globulin 3.6 g/dL (2.4-3.5)
[2023-08-12 01:41] LABS: ALT (SGPT) 37 U/L (8-55); AST (SGOT) 51 U/L (5-34); Albumin 3.7 g/dL (3.4-4.8); Alkaline Phosphatase 70 U/L (40-110); Anion Gap 18 mmol/L (10-20); BUN (Urea Nitrogen) 7 mg/dL (8.4-25.7); Bilirubin, Total 0.7 mg/dL (0.2-1.2); CK (CPK) 337 U/L (30-200); Calc. Creatinine Clearance 0 mL/min (70-130); Calcium 10.2 mg/dL (7.8-10.44); Carbon Dioxide 24 mmol/L (23-31); Chloride 97 mmol/L (98-107); Estimated GFR 80; Glucose 114 mg/dL (80-115); Potassium 3.5 mmol/L (3.5-5.1); Protein, Total 7.3 g/dL (5.8-8.1); Sodium 135 mmol/L (136-145)
[2023-08-12 01:45] LABS: Troponin I Less than 0.010 ng/mL (< 0.028)
[2023-08-12 02:31] LABS: Acetaminophen Less than 10 mcg/mL (10.0-30.0); Alcohol Less than 10.0 mg/dL (Less than 10); Lipase 30 U/L (8-78)
[2023-08-12 02:36] LABS: Salicylate Less than 8.0 mg/dL (15.0-30.0)
[2023-08-12] MEDS ORDERED: Albuterol 2.5 MG (3 mL) NEB NEB PRN (03:46)
[2023-08-12] MEDS ORDERED: Ondansetron PF 4 MG/2 ML Vial IVP PRN (03:50)
[2023-08-12] MEDS ORDERED: Lorazepam 2 MG/ML VIAL SLOW IVP PRN (04:34)
[2023-08-12] MEDS ORDERED: HumaLOG 300 UNITS/3 ML VIAL SC PRN ×2 (04:40)
[2023-08-12] MEDS ORDERED: Dextrose 5% in Water 1,000 ML IV PRN (04:40)
[2023-08-12] MEDS ORDERED: Glucagon 1 MG/ML KIT IM PRN (04:40)
[2023-08-12] MEDS ORDERED: Dextrose 50% Abboject 50 ML SYRINGE SLOW IVP PRN (04:40)
[2023-08-12] MEDS ORDERED: Sodium Chloride 0.9% 250 ML 250 ML ONE (04:47)
[2023-08-12] MEDS ORDERED: Azithromycin 500 MG VIAL ONE (04:47)
[2023-08-12 04:49] LABS: Lactic Acid 2.4 mmol/L (0.5-2.2)
[2023-08-12 05:47] VITALS: BMI 23.7
[2023-08-12] MEDS ORDERED: Enoxaparin 40 MG (0.4 mL) SYRINGE ONE (06:05)
[2023-08-12] MEDS ORDERED: methylPREDNISolone Sod Succ 40 MG VIAL ONE (06:05)
[2023-08-12] MEDS: Enoxaparin 40 MG (0.4 mL) SYRINGE SC SCH (06:09)
[2023-08-12] MEDS: methylPREDNISolone Sod Succ 40 MG VIAL IVP SCH (06:19)
[2023-08-12 06:35] LABS: Troponin I 0.013 ng/mL (< 0.028)
[2023-08-12] MEDS: Ipratropium/Albuterol 3 ML NEB NEB SCH (07:41)
[2023-08-12 08:14] LABS: Troponin I 0.016 ng/mL (< 0.028)
[2023-08-12] MEDS ORDERED: Sucralfate 1 GM/10 ML UDCUP ONE (08:16)
[2023-08-12] MEDS ORDERED: Folic Acid 1 MG TAB ONE (08:16)
[2023-08-12] MEDS ORDERED: Multivit, Therapeutic 1 TAB ONE (08:17)
[2023-08-12] MEDS ORDERED: Aspirin Chewable 81 MG TAB ONE (08:17)
[2023-08-12] MEDS ORDERED: Thiamine 100 MG TAB ONE (08:17)
[2023-08-12] MEDS ORDERED: Metoprolol Tartrate 25 MG TAB ONE (08:17)
[2023-08-12] MEDS ORDERED: Nicotine 14 MG PATCH ONE (08:17)
[2023-08-12] MEDS: Doxycycline 100 MG in Sodium Chloride 0.9% 100 ML IVPB SCH (08:50)
[2023-08-12] MEDS: Aspirin 81 mg Enteric Coated Tablet PO SCH (08:50)
[2023-08-12] MEDS: Citalopram 20 MG TAB PO SCH (08:50)
[2023-08-12] MEDS: Fluticasone Propionate Nasal Spray 16 gm Bottle NASAL SCH (08:51)
[2023-08-12] MEDS: Folic Acid 1 MG TAB PO SCH (08:53)
[2023-08-12] MEDS: Nicotine 14 MG PATCH TD SCH (08:54)
[2023-08-12] MEDS: Sucralfate 1 GM TAB PO SCH (08:54)
[2023-08-12] MEDS: Multivit, Therapeutic 1 TAB PO SCH (08:54)
[2023-08-12] MEDS: Thiamine 100 MG TAB PO SCH (08:55)
[2023-08-12] MEDS: Acetaminophen 325 MG TAB PO PRN (19:17)
[2023-08-12] MEDS: Atorvastatin Calcium 40 MG TAB PO SCH (19:57)
[2023-08-13 09:00] LABS: BUN (Urea Nitrogen) 13 mg/dL (8.4-25.7); Calc. Creatinine Clearance 73 mL/min (70-130); Calcium 9.6 mg/dL (7.8-10.44); Carbon Dioxide 26 mmol/L (23-31); Chloride 104 mmol/L (98-107); Estimated GFR 96; Glucose 125 mg/dL (80-115); Potassium 3.7 mmol/L (3.5-5.1); Sodium 139 mmol/L (136-145)
[2023-08-13 09:50] LABS: #Basophils Less than 0.03 10x3/uL (0.0-0.2); #Eosinphils Less than 0.03 10x3/uL (0.0-0.7); %Lymphocytes 4.4 % (21.0-51.0); %Monocytes 4.9 % (0.0-10.0); %Neutrophils 90.5 % (42.0-75.0); Hematocrit 34.8 % (42.0-52.0); Hemoglobin 11.8 g/dL (14.0-18.0); Mean Corpuscular HGB CONC 33.9 g/dL (32.0-36.0); Mean Corpuscular Hemoglobin 32.9 pg (27.0-31.0); Mean Corpuscular Volume 96.9 fL (78.0-98.0); Mean Platelet Volume 10.7 fL (7.4-10.4); Platelet Count 180 10x3/uL (130-400); RBC Distribution Width 12.9 % (11.5-14.5); Red Blood Cell (RBC) Count 3.59 mill/uL (4.70-6.10)
[2023-08-13] MEDS: Enoxaparin 40 MG (0.4 mL) SYRINGE SC SCH (10:09)
[2023-08-13 11:30] LABS: Anion Gap 16 mmol/L (10-20)
[2023-08-13 14:36] VITALS: BMI 17.6
[2023-08-13] MEDS: Cefdinir 300 MG CAP PO SCH (20:28)
[2023-08-13] MEDS: methylPREDNISolone Sod Succ 40 MG VIAL IVP SCH (20:28)
[2023-08-14 07:13] LABS: #Basophils Less than 0.03 10x3/uL (0.0-0.2); #Eosinphils Less than 0.03 10x3/uL (0.0-0.7); %Lymphocytes 4.3 % (21.0-51.0); %Monocytes 5.5 % (0.0-10.0); %Neutrophils 89.6 % (42.0-75.0); Hematocrit 35.2 % (42.0-52.0); Hemoglobin 11.8 g/dL (14.0-18.0); Mean Corpuscular HGB CONC 33.5 g/dL (32.0-36.0); Mean Corpuscular Hemoglobin 33.5 pg (27.0-31.0); Mean Platelet Volume 10.1 fL (7.4-10.4); Platelet Count 180 10x3/uL (130-400); RBC Distribution Width 12.9 % (11.5-14.5); Red Blood Cell (RBC) Count 3.52 mill/uL (4.70-6.10)
[2023-08-14 07:46] LABS: Anion Gap 11 mmol/L (10-20); BUN (Urea Nitrogen) 18 mg/dL (8.4-25.7); Calc. Creatinine Clearance 75 mL/min (70-130); Calcium 9.8 mg/dL (7.8-10.44); Carbon Dioxide 27 mmol/L (23-31); Chloride 105 mmol/L (98-107); Estimated GFR 97; Glucose 149 mg/dL (80-115); Potassium 3.5 mmol/L (3.5-5.1); Sodium 139 mmol/L (136-145)
[2023-08-14] MEDS: Ipratropium/Albuterol 3 ML NEB NEB SCH (13:23)
[2023-08-14 16:04] VITALS: BP 119/76; TEMP 98.6
[2023-08-15] MEDS ORDERED: predniSONE 20 MG TAB PO SCH (08:00)
== END 2023-08-14 16:09 | disposition home or self-care (01) ==
LOC: ERS 21:45 → ERHOLD 08-12 04:21 → 2NO 08-12 13:17 → T4-B 08-13 18:46
PROVIDERS: ADMIT Internal Medicine; ATTEND Hospitalist
DX: J96.01 Acute respiratory failure with hypoxia (principal); J44.9 Chronic obstructive pulmonary disease, unspecified; F39 Unspecified mood [affective] disorder; I10 Essential (primary) hypertension; E78.5 Hyperlipidemia, unspecified; E11.9 Type 2 diabetes mellitus without complications; I25.10 Atherosclerotic heart disease of native coronary artery without angina pectoris; I73.9 Peripheral vascular disease, unspecified; F17.210 Nicotine dependence, cigarettes, uncomplicated; Z96.653 Presence of artificial knee joint, bilateral; Z79.51 Long term (current) use of inhaled steroids; Z79.899 Other long term (current) drug therapy
CPT/HCPCS: 0240U; 70450; 71045; 80048 ×2; 80053; 80306; 80307; 81001; 82550; 82805; 82962 ×3; 83605; 83690; 83880; 84484 ×2; 85025 ×3; 87040; 87086; 93005; 94640 ×4; 97530; J0456; 36415; 36416; 51701; 96361; 96372; 96374; 96375; 96376; G0378; J1100; J1650; J2920; J3490; J7050; J7611; J7620

== ENCOUNTER 2024-10-28 11:40 | Inpatient (IN) | payer OTHER, MEDICAID ==
[~2024-10-28 11:40] MED LIST changes: -Iopamidol-370 76% 500 ML 1 ML ONE; +Iopamidol-370 76% 500 ML MDV (1 ML CHARGE) ONE
[2024-10-28 12:51] LABS: #Basophils 0.03 10x3/uL (0.0-0.2); #Eosinophils 0.06 10x3/uL (0.0-0.7); #Monocytes 0.71 10x3/uL (0.11-0.59); #Neutrophils 2.62 10x3/uL (1.40-6.50); %Basophils 0.6 % (0.0-1.0); %Eosinophils 1.3 % (0.0-10.0); %Lymphocytes 28.1 % (21.0-51.0); %Monocytes 14.9 % (0.0-10.0); %Neutrophils 54.9 % (42.0-75.0); Hematocrit 35.1 % (42.0-52.0); Hemoglobin 11.9 g/dL (14.0-18.0); Mean Corpuscular Hemoglobin 33.2 pg (27.0-31.0); Mean Corpuscular Volume 98.0 fL (78.0-98.0); Platelet Count 182 10x3/uL (130-400); Red Blood Cell (RBC) Count 3.58 mill/uL (4.70-6.10); White Blood Cell (WBC) Count 4.77 10x3/uL (4.8-10.8)
[2024-10-28 13:05] LABS: INR-International Normal Ratio 1.1; Prothrombin Time 13.9 sec (12.0-14.7)
[2024-10-28 13:06] LABS: PTT 39.7 sec (22.9-36.1)
[2024-10-28 13:15] LABS: ALT (SGPT) 87 U/L (Less than 45); AST (SGOT) 166 U/L (11-34); Acetaminophen Less than 10 mcg/mL (Less than 10); Albumin 3.7 g/dL (3.1-4.5); Alkaline Phosphatase 62 U/L (40-110); Anion Gap 18 mmol/L (10-20); BUN (Urea Nitrogen) Less than 4 mg/dL (8.4-25.7); Bilirubin, Total 0.7 mg/dL (0.3-1.2); Calc. Creatinine Clearance 0 mL/min (70-130); Calcium 8.9 mg/dL (7.8-10.44); Carbon Dioxide 23 mmol/L (23-31); Chloride 99 mmol/L (98-107); Globulin 3.9 g/dL (2.4-3.5); Glucose 73 mg/dL (80-115); Magnesium 1.6 mg/dL (1.6-2.6); Potassium 3.7 mmol/L (3.5-5.1); Salicylate Less than 8.0 mg/dL (Less than 8.0); Sodium 136 mmol/L (136-145)
[2024-10-28 13:18] LABS: Troponin I Less than 0.010 ng/mL (< 0.028)
[2024-10-28 15:48] LABS: Bacteria/HPF None Seen HPF (None Seen); CAUTI Indications for Culture Alt mental st,lethar; Glucose, Urine (Dipstick) Normal (Negative); Leukocyte Negative Leu/uL (Negative); Protein, Urine (Dipstick) Negative (Neg-Trace); RBC/HPF 0-3 HPF (0-3); Specific Gravity, Urine 1.003 (1.002-1.036); WBC/HPF None Seen HPF (0-3)
[2024-10-28 15:49] LABS: Urine Culture Reflex No No
[2024-10-28 15:56] LABS: Cocaine Metabolite Screen Negative (Negative); THC/Cannabinoid Screen Negative (Negative); Tricyclic Screen Negative (Negative)
[2024-10-28] MEDS ORDERED: cefTRIAXone (ROCEPHIN) 1 GM VIAL ONE (17:41)
[2024-10-28] MEDS ORDERED: Azithromycin 500 MG VIAL ONE (17:46)
[2024-10-28] MEDS ORDERED: Ondansetron PF 4 MG/2 ML Vial IVP PRN (21:09)
[2024-10-28] MEDS ORDERED: Calcium Carbonate 500 MG ChewTAB PO PRN (21:09)
[2024-10-28] MEDS ORDERED: Sucralfate 1 GM TAB PO PRN (21:13)
[2024-10-28] MEDS ORDERED: Electrolyte Replacement Protocol 1 EACH FS SCH (21:15)
[2024-10-28] MEDS ORDERED: Albuterol 2.5 MG (3 mL) NEB NEB PRN (21:30)
[2024-10-28] MEDS: Folic Acid 1 MG TAB PO SCH (22:25)
[2024-10-28] MEDS: Multivit, Therapeutic 1 TAB PO SCH (22:25)
[2024-10-28 22:42] VITALS: BMI 16.4
[2024-10-29 05:03] LABS: #Basophils 0.05 10x3/uL (0.0-0.2); #Eosinophils 0.06 10x3/uL (0.0-0.7); #Monocytes 0.86 10x3/uL (0.11-0.59); #Neutrophils 2.49 10x3/uL (1.40-6.50); %Basophils 1.1 % (0.0-1.0); %Eosinophils 1.4 % (0.0-10.0); %Lymphocytes 20.8 % (21.0-51.0); %Monocytes 19.6 % (0.0-10.0); %Neutrophils 56.9 % (42.0-75.0); Hematocrit 35.2 % (42.0-52.0); Hemoglobin 12.0 g/dL (14.0-18.0); Mean Corpuscular Hemoglobin 33.1 pg (27.0-31.0); Mean Corpuscular Volume 97.0 fL (78.0-98.0); Platelet Count 192 10x3/uL (130-400); Red Blood Cell (RBC) Count 3.63 mill/uL (4.70-6.10); White Blood Cell (WBC) Count 4.38 10x3/uL (4.8-10.8)
[2024-10-29 05:05] LABS: ALT (SGPT) 73 U/L (Less than 45); AST (SGOT) 127 U/L (11-34); Albumin 3.3 g/dL (3.1-4.5); Alkaline Phosphatase 61 U/L (40-110); Anion Gap 16 mmol/L (10-20); BUN (Urea Nitrogen) 5 mg/dL (8.4-25.7); Bilirubin, Total 0.8 mg/dL (0.3-1.2); Calc. Creatinine Clearance 72 mL/min (70-130); Calcium 9.0 mg/dL (7.8-10.44); Carbon Dioxide 23 mmol/L (23-31); Chloride 104 mmol/L (98-107); Globulin 3.6 g/dL (2.4-3.5); Glucose 84 mg/dL (80-115); Potassium 3.6 mmol/L (3.5-5.1); Sodium 139 mmol/L (136-145)
[2024-10-29] MEDS: Mometasone 100 MCG/Formoterol 5 MCG 120 PUFF INHALER INH SCH (06:30)
[2024-10-29] MEDS: Metoprolol Succinate XL 25 MG ER.TAB PO SCH (10:15)
[2024-10-29] MEDS: Magnesium 2 GM/50 ML(in water) 2 GM in Premix 1 BAG IVPB SCH (10:16)
[2024-10-29] MEDS: Mometasone 200 MCG/Formoterol 5 MCG 120 PUFF INHALER INH SCH (18:59)
[2024-10-30 04:33] LABS: Hematocrit 37.2 % (42.0-52.0); Hemoglobin 12.7 g/dL (14.0-18.0); Mean Corpuscular Hemoglobin 32.9 pg (27.0-31.0); Mean Corpuscular Volume 96.4 fL (78.0-98.0); Platelet Count 197 10x3/uL (130-400); Red Blood Cell (RBC) Count 3.86 mill/uL (4.70-6.10); White Blood Cell (WBC) Count 4.21 10x3/uL (4.8-10.8)
[2024-10-30 05:01] LABS: ALT (SGPT) 57 U/L (Less than 45); AST (SGOT) 75 U/L (11-34); Albumin 3.2 g/dL (3.1-4.5); Alkaline Phosphatase 57 U/L (40-110); Anion Gap 13 mmol/L (10-20); BUN (Urea Nitrogen) 7 mg/dL (8.4-25.7); Bilirubin, Total 1.1 mg/dL (0.3-1.2); Calc. Creatinine Clearance 69 mL/min (70-130); Calcium 9.1 mg/dL (7.8-10.44); Carbon Dioxide 25 mmol/L (23-31); Chloride 105 mmol/L (98-107); Globulin 3.6 g/dL (2.4-3.5); Glucose 73 mg/dL (80-115); Magnesium 1.8 mg/dL (1.6-2.6); Potassium 3.4 mmol/L (3.5-5.1); Sodium 140 mmol/L (136-145)
[2024-10-30] MEDS: Magnesium 2 GM/50 ML(in water) Premix IVPB SCH (10:11)
[2024-10-30] MEDS: Aspirin Chewable 81 MG TAB PO SCH (10:12)
[2024-10-30] MEDS: Pantoprazole 40 MG DR.TAB PO SCH (10:13)
[2024-10-30] MEDS: Citalopram 20 MG TAB PO SCH (10:13)
[2024-10-30] MEDS: Acetaminophen 325 MG TAB PO PRN (10:14)
[2024-10-30 11:36] VITALS: BMI 16.8
[2024-10-31 05:33] LABS: Hematocrit 38.3 % (42.0-52.0); Hemoglobin 13.0 g/dL (14.0-18.0); Mean Corpuscular Hemoglobin 32.8 pg (27.0-31.0); Mean Corpuscular Volume 96.7 fL (78.0-98.0); Platelet Count 197 10x3/uL (130-400); Red Blood Cell (RBC) Count 3.96 mill/uL (4.70-6.10); White Blood Cell (WBC) Count 5.32 10x3/uL (4.8-10.8)
[2024-10-31 05:43] LABS: Anion Gap 15 mmol/L (10-20); BUN (Urea Nitrogen) 9 mg/dL (8.4-25.7); Calc. Creatinine Clearance 75 mL/min (70-130); Calcium 9.2 mg/dL (7.8-10.44); Carbon Dioxide 21 mmol/L (23-31); Chloride 106 mmol/L (98-107); Glucose 77 mg/dL (80-115); Potassium 4.3 mmol/L (3.5-5.1); Sodium 138 mmol/L (136-145)
[2024-10-31] MEDS: Thiamine 100 MG TAB PO SCH (21:19)
[2024-11-01] MEDS: Amoxicillin/Potassium Clav 500 MG TAB PO SCH (21:48)
[2024-11-03 04:48] LABS: #Basophils Less than 0.03 10x3/uL (0.0-0.2); #Eosinophils 0.09 10x3/uL (0.0-0.7); #Monocytes 0.84 10x3/uL (0.11-0.59); #Neutrophils 3.52 10x3/uL (1.40-6.50); %Basophils 0.4 % (0.0-1.0); %Eosinophils 1.6 % (0.0-10.0); %Lymphocytes 21.1 % (21.0-51.0); %Monocytes 14.8 % (0.0-10.0); %Neutrophils 61.9 % (42.0-75.0); Hematocrit 34.9 % (42.0-52.0); Hemoglobin 11.8 g/dL (14.0-18.0); Mean Corpuscular Hemoglobin 32.9 pg (27.0-31.0); Mean Corpuscular Volume 97.2 fL (78.0-98.0); Platelet Count 161 10x3/uL (130-400); Red Blood Cell (RBC) Count 3.59 mill/uL (4.70-6.10); White Blood Cell (WBC) Count 5.68 10x3/uL (4.8-10.8)
[2024-11-03 05:19] LABS: Anion Gap 14 mmol/L (10-20); BUN (Urea Nitrogen) 17 mg/dL (8.4-25.7); Calc. Creatinine Clearance 60 mL/min (70-130); Calcium 9.4 mg/dL (7.8-10.44); Carbon Dioxide 22 mmol/L (23-31); Chloride 107 mmol/L (98-107); Glucose 93 mg/dL (80-115); Potassium 4.2 mmol/L (3.5-5.1); Sodium 139 mmol/L (136-145)
[2024-11-04 08:42] VITALS: TEMP 97.9
[2024-11-04 11:53] VITALS: BP 114/74
== END 2024-11-04 12:00 | DRG 177 ==
LOC: ERS 11:40 → 2NO 20:18
PROVIDERS: ADMIT Student in an Organized Health Care Education/Training Program; ATTEND Emergency Medicine
DX: J69.0 Pneumonitis due to inhalation of food and vomit (principal); E43 Unspecified severe protein-calorie malnutrition; E87.20 Acidosis, unspecified; J44.1 Chronic obstructive pulmonary disease with (acute) exacerbation; Z68.1 Body mass index [BMI] 19.9 or less, adult; I10 Essential (primary) hypertension; E78.5 Hyperlipidemia, unspecified; I25.10 Atherosclerotic heart disease of native coronary artery without angina pectoris; E11.51 Type 2 diabetes mellitus with diabetic peripheral angiopathy without gangrene; F17.200 Nicotine dependence, unspecified, uncomplicated; E86.0 Dehydration; F10.229 Alcohol dependence with intoxication, unspecified; J45.909 Unspecified asthma, uncomplicated; K21.9 Gastro-esophageal reflux disease without esophagitis; E87.6 Hypokalemia; K76.0 Fatty (change of) liver, not elsewhere classified; F41.9 Anxiety disorder, unspecified; F31.9 Bipolar disorder, unspecified; F17.210 Nicotine dependence, cigarettes, uncomplicated; Z98.890 Other specified postprocedural states; Z95.1 Presence of aortocoronary bypass graft; Z89.421 Acquired absence of other right toe(s); Z89.512 Acquired absence of left leg below knee; Z79.51 Long term (current) use of inhaled steroids; Z79.899 Other long term (current) drug therapy
CPT/HCPCS: 36415; 36416; 71045; 71260; 74177; 76705; 80048; 80053; 80306; 80307; 81001; 82550; 83036; 83605; 83735; 83880; 84484; 85025; 85027; 85610; 85730; 87040; 87070; 87205; 93005; 94664; 94760; 96374; 96375; J0456; J0696; J2543; J3411; J3475; J7620; Q9967

== ENCOUNTER 2025-01-04 21:55 | Emergency (ER) | payer OTHER ==
[2025-01-04 22:20] LABS: #Basophils 0.03 10x3/uL (0.0-0.2); #Eosinophils 0.06 10x3/uL (0.0-0.7); #Monocytes 0.85 10x3/uL (0.11-0.59); #Neutrophils 2.59 10x3/uL (1.40-6.50); %Basophils 0.5 % (0.0-1.0); %Eosinophils 1.0 % (0.0-10.0); %Lymphocytes 38.6 % (21.0-51.0); %Monocytes 14.7 % (0.0-10.0); %Neutrophils 45.0 % (42.0-75.0); Hematocrit 39.4 % (42.0-52.0); Hemoglobin 13.2 g/dL (14.0-18.0); Mean Corpuscular Hemoglobin 31.6 pg (27.0-31.0); Mean Corpuscular Volume 94.3 fL (78.0-98.0); Platelet Count 186 10x3/uL (130-400); Red Blood Cell (RBC) Count 4.18 mill/uL (4.70-6.10); White Blood Cell (WBC) Count 5.77 10x3/uL (4.8-10.8)
[2025-01-04 22:39] LABS: ALT (SGPT) 34 U/L (Less than 45); AST (SGOT) 93 U/L (11-34); Albumin 3.8 g/dL (3.1-4.5); Alkaline Phosphatase 68 U/L (40-110); Anion Gap 20 mmol/L (10-20); BUN (Urea Nitrogen) 5 mg/dL (8.4-25.7); Bilirubin, Total 0.6 mg/dL (0.3-1.2); Calc. Creatinine Clearance 0 mL/min (70-130); Calcium 9.5 mg/dL (7.8-10.44); Carbon Dioxide 22 mmol/L (23-31); Chloride 97 mmol/L (98-107); Globulin 4.4 g/dL (2.4-3.5); Glucose 95 mg/dL (80-115); Potassium 3.9 mmol/L (3.5-5.1); Sodium 135 mmol/L (136-145)
== END 2025-01-05 02:43 | disposition home or self-care (01) ==
LOC: ERS 21:55
DX: J44.1 Chronic obstructive pulmonary disease with (acute) exacerbation (principal); E11.9 Type 2 diabetes mellitus without complications; I10 Essential (primary) hypertension; F17.210 Nicotine dependence, cigarettes, uncomplicated
CPT/HCPCS: 71045; 80053; 85025; 93005; 94760